=== PATIENT | male | born 1950 ===

== ENCOUNTER 2017-01-09 15:13 | Inpatient (IN) | payer MEDICARE, OTHER ==
[2017-01-09 15:16] VITALS: BMI 27.7
--- NOTE | 2017-01-09 15:51 | ED PDOC ---
Arrival/HPI - General Chief Complaint: Psychiatric Evaluation Time Seen by Provider: 01/09/17 15:43 Historian: Patient - History of Present Illness Narrative History of Present Illness (Text): 01/09/17 15:43 A 66 year old male, whose past medical history includes depression, presents to the emergency department complaining of worsening symptoms of depression over the past few weeks. Patient denies any other physical complaints. Patient denies any fever, chills, nausea, vomiting, abdominal pain, chest pain, shortness of breath, suicidal ideation, homicidal ideation or any other complaints. PMD: Dr. Diana Time/Duration: Other (few days) Symptom Course: Worsening Quality: Other Context: Home Past Medical History - Provider Review Nursing Documentation Reviewed: Yes - Infectious Disease Hx of Infectious Diseases: None - Cardiac Hx Hypertension: Yes - Pulmonary Hx Respiratory Disorders: No - HEENT Hx HEENT Disorder: Yes Hx Blind: No Hx Cataracts: Yes (cataraxt sx) Hx Deafness: No Hx Difficulty Chewing: No Hx Epistaxis: No Hx Glaucoma: No Hx Macular Degeneration: No - Renal Hx Renal Disorder: No - Endocrine/Metabolic Hx Diabetes Mellitus Type 2: Yes Hx Hypothyroidism: No - Hematological/Oncological Hx Anemia: Yes Hx Blood Transfusions: Yes Hx Blood Transfusion Reaction: No - Integumentary Hx Dermatological Disorder: Yes Hx Basal Cell Carcinoma: No Hx High: No Hx Cellulitis: Yes Hx Eczema: No Hx Melanoma: No Hx Psoriasis: No Hx Squamous Cell Carcinoma: No Other/Comment: Hx Ulcer to right calf (healed) - Musculoskeletal/Rheumatological Hx Arthritis: No Hx Rheumatoid Arthritis: No Other/Comment: Varicose veins - Gastrointestinal Hx Gastrointestinal Disorders: Yes Hx Crohn's Disease: No Hx Diverticulitis: Yes Hx Gall Bladder Disease: No Hx Gastritis: No Hx Pancreatitis: No - Genitourinary/Gynecological Hx Sexually Transmitted Diseases: No - Psychiatric Hx Anxiety: No Hx Bipolar Disorder: No Hx Depression: Yes Hx Post Traumatic Stress Disorder: No Hx Schizophrenia: No Hx Substance Use: No - Surgical History Hx Appendectomy: No Hx Carotid Endarterectomy: No Hx Cholecystectomy: No Hx Coronary Artery Bypass Graft: Yes (1997) Hx Coronary Stent: No Hx Tonsillectomy: No Hx Vascular Surgery: Yes Other/Comment: MVR. Varicose veins - Anesthesia Hx Anesthesia: Yes Hx Anesthesia Reactions: No Hx Malignant Hyperthermia: No Family/Social History - Physician Review Nursing Documentation Reviewed: Yes Family/Social History: No Known Family HX Smoking Status: Light Smoker < 10 Cigarettes Daily Hx Alcohol Use: Yes Frequency of alcohol use: Socially Hx Substance Use: No Allergies/Home Meds Allergies/Adverse Reactions: Allergies clams Allergy (Mild, Uncoded 12/17/16 15:02) Home Medications: Home Meds Medication Instructions Recorded Confirmed Potassium Chloride [Klor-Con M10] 10 meq PO DAILY 05/16/15 01/09/17 Clonazepam 2 mg PO HS 03/15/16 01/09/17 Losartan Potassium [Cozaar] 100 mg PO DAILY 03/15/16 01/09/17 metOLazone [Zaroxolyn] 2.5 mg PO DAILY 03/15/16 01/09/17 Insulin Aspart [Novolog Flexpen] 1 unit SC BID 05/14/16 01/09/17 Insulin Degludec [Tresiba 20 unit SQ HS 05/14/16 01/09/17 Flextouch U-100] Allopurinol [Zyloprim] 1 tab PO DAILY 11/16/16 01/09/17 Simvastatin 1 tab PO DAILY 11/16/16 01/09/17 Physical Exam - Physical Exam Narrative Physical Exam (Text): - Review of Systems Constitutional: Normal. absent: Fatigue, Weight Change, Fevers Eyes: Normal ENT: Normal Respiratory: Normal absent: SOB, Cough, Sputum Cardiovascular: Normal absent: Chest pain, Palpitations, Syncope Gastrointestinal: Normal absent: Abdominal pain, Diarrhea, Nausea, Vomiting Genitourinary: Normal. absent: Dysuria, Frequency, Hematuria Musculoskeletal: Normal. absent: Arthralgias, Back Pain, Neck Pain Skin: Normal Neurological: Normal absent: Focal Weakness Endocrine: Normal Hemo/Lymphatic: Normal Psychiatric: (+) Depression absent: suicidal/homicidal ideation - Physical exam Patient appears age appropriate, speaking full sentences without difficulty - Systems Exam Head: Present: Atraumatic, Normocephalic Pupils: Present: PERRL Extraocular Muscles: Present: EOMI Conjunctiva: Present: Normal Mouth: Present: Moist Mucous Membranes Neck: Present: Normal Range of Motion. No: MIDLINE TENDERNESS, Paraspinal Tenderness Respiratory/Chest: Present: Clear to Auscultation, Good Air Exchange. No: Respiratory Distress, Accessory Muscle Use, Tachypnic Cardiovascular: Present: Regular Rate and Rhythm, Normal S1, S2, Peripheral Pulses Present. No: Murmurs Abdomen: Present: Normal Bowel Sounds, No: Tenderness, Peritoneal Signs, Rebound, Guarding, Distention Back: Present: Normal Inspection. No: Midline Tenderness, Paraspinal Tenderness Upper Extremity: Present: Normal Inspection. No: Cyanosis, Edema Lower Extremity: Present: Normal Inspection. No: Edema Neurological: Present: GCS=15, Speech Normal, cranial nerves II through XII fully intact with no cerebellar abnormality, neuro-sensory fully intact. No focal neurological deficits. Skin: Present: Warm, Dry, Normal Color. No: Rashes Lymphatic: Present: OX3, NI, NC Psychiatric: Present: Alert, Oriented x 3, Normal Insight, Normal Concentration Vital Signs Reviewed: Yes Vital Signs Temp Pulse Resp BP Pulse Ox 01/09/17 15:20 97.9 F 77 18 120/72 98 Temperature: Afebrile Blood Pressure: Normal Pulse: Regular Respiratory Rate: Normal Appearance: Positive for: Well-Appearing, Non-Toxic, Comfortable Pain Distress: None Mental Status: Positive for: Alert and Oriented X 3 Medical Decision Making ED Course and Treatment: 01/09/17 15:43 Impression: A 66 year old male with worsening symptoms of depression. Patient denies any suicidal or homicidal ideation. Physical exam unremarkable. Plan: -- Labs -- Urinalysis -- Reassess and disposition Progress Notes: 01/09/17 17:43 Patient was evaluated by ERIN Celis, who states patient will be admitted to Dr. Turner's service. Patient is aware of and agrees with plan. - Lab Interpretations Lab Results: 01/09/17 16:15 01/09/17 16:15 Lab Results 01/09/17 16:15: Alcohol, Quantitative < 10 01/09/17 16:15: Salicylates < 1 L, Acetaminophen < 10.0 L 01/09/17 16:15: Sodium 138, Potassium 3.8, Chloride 99, Carbon Dioxide 32, Anion Gap 11, BUN 19, Creatinine 1.0, Est GFR ( Amer) > 60, Est GFR (Non- Af Amer) > 60, Random Glucose 156 H, Calcium 8.7, Total Bilirubin 0.3, AST 43, ALT 57 H, Alkaline Phosphatase 87, Total Protein 6.1, Albumin 3.5, Globulin 2.6 , Albumin/Globulin Ratio 1.3 01/09/17 16:15: WBC 5.4, RBC 3.92, Hgb 11.8 L, Hct 36.8 L, MCV 93.9, MCH 30.1, MCHC 32.1, RDW 13.2, Plt Count 163, MPV 11.4 H, Gran % 68.1 H, Lymph % (Auto) 18.9 L, [place] % (Auto) 11.9 H, Eos % (Auto) 0.7 L, Baso % (Auto) 0.4, Gran # 3.68 , Lymph # 1.0 L, Roosevelt # 0.6, Eos # 0.0, Baso # 0.02, Corrected WBC (Man) Cancelled, Neutrophils % (Manual) Cancelled, Band Neutrophils % Cancelled, Lymphocytes % (Manual) Cancelled, Atypical Lymphs % Cancelled, Monocytes % ( Manual) Cancelled, Eosinophils % (Manual) Cancelled, Basophils % (Manual) Cancelled, Metamyelocytes % Cancelled, Myelocytes % Cancelled, Promyelocytes % Cancelled, Nucleated RBC % Cancelled, Hypersegmented Polys Cancelled, Immature Lymphocytes Cancelled, Blast Cells Cancelled, Smudge Cells Cancelled, Toxic Granulation Cancelled, Dohle Bodies Cancelled, Nena Rods Cancelled, Platelet Evaluation Cancelled, Plt Clumps, EDTA Cancelled, Large Platelets Cancelled, Giant Platelets Cancelled, Polychromasia Cancelled, Hypochromasia Cancelled, Hyperchromasia Cancelled, Poikilocytosis (manual Cancelled, Basophilic Stippling Cancelled, Anisocytosis (manual) Cancelled, Microcytosis (manual) Cancelled, Macrocytosis (manual) Cancelled, Spherocytes Cancelled, Sickle Cells Cancelled, Target Cells Cancelled, Tear Drop Cells Cancelled, Ovalocytes Cancelled, Stomatocytes Cancelled, Helmet Cells Cancelled, Cameron Rings Cancelled , Deanna Cells Cancelled, Acanthocytes (Spur) Cancelled, Rouleaux Cancelled, Schistocytes Cancelled 01/09/17 16:12: Urine Opiates Screen Negative, Urine Methadone Screen Negative, Ur Barbiturates Screen Negative, Ur Phencyclidine Scrn Negative, Ur Amphetamines Screen Negative, U Benzodiazepines Scrn Negative, U Oth Cocaine Metabols Negative, U Cannabinoids Screen Negative 01/09/17 16:12: Urine Color Yellow, Urine Appearance Clear, Urine pH 6.5, Ur Specific [place] 1.015, Urine Protein Trace H, Urine Glucose (UA) 100 H, Urine Ketones Negative, Urine Blood Trace-lysed H, Urine Nitrate Negative, Urine Bilirubin Negative, Urine Urobilinogen 0.2, Ur Leukocyte Esterase Negative, Urine RBC 0 - 2, Urine WBC Negative, Ur Epithelial Cells 1 - 3, Urine Bacteria Many - Scribe Statement The provider has reviewed the documentation as recorded by the Vladislavibe Donna Wild Provider Scribe Attestation: All medical record entries made by the Scribe were at my direction and personally dictated by me. I have reviewed the chart and agree that the record accurately reflects my personal performance of the history, physical exam, medical decision making, and the department course for this patient. I have also personally directed, reviewed, and agree with the discharge instructions and disposition. Disposition/Present on Arrival - Present on Arrival Any Indicators Present on Arrival: No History of DVT/PE: No History of Uncontrolled Diabetes: No Urinary Catheter: No History of Decub. Ulcer: No History Surgical Site Infection Following: None - Disposition Have Diagnosis and Disposition been Completed?: Yes Diagnosis: Depression Disposition: HOSPITALIZED Disposition Time: 17:56 Patient Plan: Admission Condition: FAIR Referrals: Pb Diana [Primary Care Provider] - Follow up with primary Forms: [employer] ([place])
[2017-01-09 16:24] LABS: BASO # 0.02 K/mm3 (0.0-2.0); BASO % 0.4 % (0.0-3.0); EOS % 0.7 % (1.5-5.0); GRAN # 3.68 (1.4-6.5); GRAN % 68.1 % (50.0-68.0); HEMATOCRIT 36.8 % (42.0-52.0); LYMPH % 18.9 % (22.0-35.0); MEAN CELL VOLUME 93.9 fl (80.0-105.0); MEAN CORPUSCULAR HEMOGLOBIN 30.1 pg (25.0-35.0); MEAN CORPUSCULAR HGB CONC 32.1 g/dl (31.0-37.0); MEAN PLATELET VOLUME 11.4 fl (7.0-11.0); MONO # 0.6 (0.1-0.6); MONO % 11.9 % (1.0-6.0); RED CELL DISTRIBUTION WIDTH 13.2 % (11.5-14.5); WHITE BLOOD COUNT 5.4 10^3/ul (4.5-11.0)
[2017-01-09 16:33] LABS: ALB/GLOB RATIO 1.3 (1.1-1.8); ALKALINE PHOSPHATASE 87 U/L (38-133); ALT/SGPT 57 U/L (7-56); AST/SGOT 43 U/L (15-59); BILIRUBIN,TOTAL 0.3 mg/dL (0.2-1.3); BLOOD UREA NITROGEN 19 mg/dL (7-21); CALCIUM 8.7 mg/dL (8.4-10.5); CARBON DIOXIDE 32 mmol/L (21-33); CHLORIDE 99 mmol/L (98-107); GFR AFRICAN-AMERICAN > 60; GLUCOSE,RANDOM 156 mg/dL (70-110); POTASSIUM 3.8 mmol/L (3.6-5.0); SODIUM 138 mmol/L (132-148); TOTAL PROTEIN 6.1 g/dL (5.8-8.3)
[2017-01-09 17:18] LABS: PH,URINE 6.5 (4.7-8.0); URINE BILIRUBIN NEGATIVE (NEGATIVE); URINE BLOOD TRACE-LYSED (NEGATIVE); URINE GLUCOSE (UA) 100 mg/dL (NEGATIVE); URINE KETONE NEGATIVE (NEGATIVE); URINE LEUKOCYTE ESTERASE NEGATIVE Leu/uL (NEGATIVE); URINE PROTEIN TRACE mg/dL (<30 mg/dL); URINE UROBILINOGEN 0.2 E.U./dL (<1 E.U./dL)
[2017-01-09 17:25] LABS: URINE APPEARANCE CLEAR (CLEAR); URINE COLOR YELLOW (YELLOW)
[2017-01-09 17:47] LABS: URINE BACTERIA MANY (NEG); URINE RBC 0 - 2 /hpf (0-2); URINE WBC NEGATIVE /hpf (0-6)
[2017-01-09] MEDS ORDERED: Magnesium Hydroxide Susp 30 ml UD PO PRN (21:07)
[2017-01-09] MEDS ORDERED: Alum-Mag Hydrox-Simethicone Susp (30 mL) PO PRN (21:07)
[2017-01-09] MEDS: Insulin Reg-MEDIUM-Coverage SC SCH (22:09)
[2017-01-09] MEDS: Insulin Detemir 100 units/ml Vial (Levemir) SC SCH (22:17)
--- NOTE | 2017-01-10 00:38 | PCM.BM ---
Treatment Plan Problems - Problems identified on initial assessmt depression Date Initiated: 01/09/17 Time Initiated: 20:30 Assessment reference: NA Status: Active Priority: 1 Medication Non-Compliance Date Initiated: 01/09/17 Time Initiated: 20:30 Assessment reference: NA Status: Active Priority: 2 Treatment assets and liabiliti Patient Assests: self-reliant, negotiates basic needs, cognitively intact Patient Liabilities: financial problems, poor support system, relationship conflicts, medical problems - Milieu Protocol Maintain good personal hygiene: daily Encourage regular showers, daily Remind patient to perform daily oral care Conduct patient checks and document Observation sheet: Q15 minutes Maintain personal safety: every shift Educate patient to report safety concerns to staff, every shift Monitor environment for contraband/sharps Medication safety: Monitor for expected outcome, potential side effects: every shift, Assess barriers to learning: every shift, Assess readiness for medication education: every shift Discharge/Continuing Care - Education Needs Education Needs: Patient Medication, Patient Diagnosis/Disease Process, Patient Coping Skills, Patient Placement options, Patient Community resources - Discharge Discharge Criteria: Tolerates medication w/o severe side effects
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
[2017-01-10] MEDS: Pantoprazole 40 mg EC Tab PO SCH (06:57)
--- NOTE | 2017-01-10 07:31 | CP.PCM.CON ---
<Ava Phan - Last Filed: 01/10/17 14:19> History of Present Illness - History of Present Illness History of Present Illness: Medicine consult note for Dr Turner Reason for consult: medical clearance. Patient is a 66 y/o with PMH of mitral valve replacement, htn, depression, anxiety, OCD, cad, IDDM2, hld, afib ( on Coumadin) whom was admitted on psych hyman for depression, and Dr Oh is being consulted for medical clearance. Patient currently has no complaints. States he is feeling much better compared to when he came in. Patient denies chest pain, sob, n/v/d, denies stomach pain, decreased appetite. PMH: Afib, CAD, HTN, IDDM2, depression, anxiety, hld, PSH: MV replacement in 1997, CAD s.p CABG , Cataract surgery. FMH: Father and mother has h/o DM, htn. Social: smokes 5-7 cigarettes per day, denies alcohol and illicit drug use. Review of Systems - Constitutional Constitutional: absent: Chills, Fatigue, Fever, Frequent Falls, Headache - EENT Eyes: absent: Blurred Vision Nose/Mouth/Throat: absent: Neck Pain - Cardiovascular Cardiovascular: Irregular Heart Rhythm. absent: Chest Pain, Chest Pain at Rest , Chest Pain with Activity, Dyspnea on Exertion, Edema, Leg Edema, Lightheadedness, Palpitations, Syncope - Respiratory Respiratory: absent: Cough, Dyspnea, Wheezing, Stridor, Chest Congestion - Gastrointestinal Gastrointestinal: absent: Abdominal Pain, Bloating, Constipation, Nausea - Genitourinary Genitourinary: absent: Difficulty Urinating, Dysuria - Musculoskeletal Musculoskeletal: absent: Atrophy, Back Pain - Integumentary Integumentary: absent: Rash - Neurological Neurological: absent: Dizziness, Headaches, Syncope, Tremor, Vertigo, Weakness - Psychiatric Psychiatric: Anxiety, Depression - Endocrine Endocrine: absent: Fatigue, Palpitations Past Patient History - Infectious Disease Hx of Infectious Diseases: None - Past Medical History & Family History Past Medical History?: Yes - Past Social History Smoking Status: Light Smoker < 10 Cigarettes Daily Alcohol: None Drugs: Denies Home Situation {Lives}: With Family - CARDIAC Hx Hypertension: Yes - PULMONARY Hx Respiratory Disorders: No - HEENT Hx HEENT Problems: Yes Hx Cataracts: Yes (cataraxt sx) Hx Deafness: No Hx Difficulty Chewing: No Hx Epistaxis: No Hx Glaucoma: No Hx Macular Degeneration: No - RENAL Hx Chronic Kidney Disease: No - ENDOCRINE/METABOLIC Hx Diabetes Mellitus Type 2: Yes Hx Hypothyroidism: No - HEMATOLOGICAL/ONCOLOGICAL Hx Anemia: Yes Hx Blood Transfusions: Yes Hx Blood Transfusion Reaction: No - INTEGUMENTARY Hx Dermatological Problems: Yes Hx Basil Cell: No Hx High: No Hx Cellulitis: Yes Hx Eczema: No Hx Melanoma: No Hx Psoriasis: No Hx Squamous Cell: No Other/Comment: Hx Ulcer to right calf (healed) - MUSCULOSKELETAL/RHEUMATOLOGICAL Hx Arthritis: No Hx Rheumatoid Arthritis: No Other/Comment: Varicose veins - GASTROINTESTINAL Hx Gastrointestinal Disorders: Yes Hx Crohn's Disease: No Hx Diverticulitis: Yes Hx Gall Bladder Disease: No Hx Gastritis: No Hx Pancreatitis: No - GENITOURINARY/GYNECOLOGICAL Hx Sexually Transmitted Disorders: No - PSYCHIATRIC Hx Depression: Yes - SURGICAL HISTORY Hx Appendectomy: No Hx Carotid Endarterectomy: No Hx Cholecystectomy: No Hx Coronary Artery Bypass Graft: Yes (1997) Hx Coronary Stent: No Hx Tonsillectomy: No Hx Vascular Surgery: Yes Other/Comment: MVR. Varicose veins - ANESTHESIA Hx Anesthesia: Yes Hx Anesthesia Reactions: No Hx Malignant Hyperthermia: No Meds Allergies/Adverse Reactions: Allergies Allergy/AdvReac Type Severity Reaction Status Date / Time clams Allergy Mild SHORTNESS Uncoded 01/09/17 20:50 OF BREATH - Medications Medications: Current Medications Acetaminophen (Tylenol 325mg Tab) 650 mg PO Q4 PRN PRN Reason: Pain, moderate (4-7) Al Hydrox/Mg Hydrox/Simethicone (Maalox Plus 30 Ml) 30 ml PO DAILY PRN PRN Reason: Upset Stomach Amlodipine Besylate (Norvasc) 5 mg PO DAILY [facility] Clonazepam (Klonopin) 2 mg PO HS [facility] PRN Reason: Protocol Last Admin: 01/09/17 22:16 Dose: 2 mg Insulin Detemir (Levemir) 15 unit SC HS [facility] Last Admin: 01/09/17 22:17 Dose: 15 unit Insulin Human Regular (Humulin R Med) 0 units SC ACHS [facility] PRN Reason: Protocol Last Admin: 01/09/17 22:09 Dose: Not Given Losartan Potassium (Cozaar) 100 mg PO DAILY [facility] Magnesium Hydroxide (Milk Of Magnesia) 30 ml PO DAILY PRN PRN Reason: Constipation Metolazone (Zaroxolyn) 2.5 mg PO DAILY [facility] Pantoprazole Sodium (Protonix Ec Tab) 40 mg PO 0600 [facility] Last Admin: 01/10/17 06:57 Dose: 40 mg Potassium Chloride (Klor-Con 10) 10 meq PO 0800 [facility] Sertraline HCl (Zoloft) 50 mg PO DAILY [facility] Trazodone HCl (Desyrel) 50 mg PO HS [facility] Last Admin: 01/09/17 22:17 Dose: 50 mg Warfarin Sodium (Coumadin) 5 mg PO 1800 [facility] PRN Reason: Protocol Physical Exam - Constitutional Appears: No Acute Distress - Head Exam Head Exam: ATRAUMATIC, NORMAL INSPECTION, NORMOCEPHALIC - Eye Exam Eye Exam: EOMI, Normal appearance, PERRL. absent: Scleral icterus Pupil Exam: NORMAL ACCOMODATION - ENT Exam ENT Exam: Mucous Membranes Moist - Neck Exam Neck exam: Positive for: Normal Inspection - Respiratory Exam Respiratory Exam: Clear to Auscultation Bilateral, NORMAL BREATHING PATTERN. absent: Rales, Rhonchi, Wheezes, Respiratory Distress, Stridor - Cardiovascular Exam Cardiovascular Exam: Irregular Rhythm, RRR, +S1, +S2, Systolic Murmur. absent: Gallop, JVD, Rubs - GI/Abdominal Exam GI & Abdominal Exam: Normal Bowel Sounds, Soft. absent: Distended, Firm, Guarding, Rigid, Tenderness - Extremities Exam Extremities exam: Positive for: normal inspection. Negative for: pedal edema - Back Exam Back exam: NORMAL INSPECTION - Neurological Exam Neurological exam: Alert, Oriented x3 - Psychiatric Exam Psychiatric exam: Normal Affect, Normal Mood - Skin Skin Exam: Dry, Warm Results - Vital Signs Recent Vital Signs: Last Vital Signs Temp 96.7 F L 01/10/17 07:03 Pulse 63 01/10/17 07:03 Resp 16 01/10/17 07:03 BP 123/65 01/10/17 07:03 Pulse Ox 98 01/10/17 07:03 - Labs Result Diagrams: 01/09/17 16:15 01/09/17 16:15 Labs: Laboratory Results - last 24 hr 01/09/17 01/10/17 20:44 06:50 POC Glucose (mg/dL) 262 H 99 Assessment & Plan - Assessment and Plan (Free Text) Assessment: 1) HTN 2) Rate controlled afib 3) IDDM2 4) HLD 5) CAD, with CABG 6) Anxiety and depression. 7) Mitral valve replacement Plan: Will continue patient on Norvasc for htn. Patient is on cozaar and metolazone. Will add lopressor and asa for CAD. Tresiba and novolog are non formulary, will start levemir and ISS for DM. Carb controlled diet. Patient is on Coumadin for afib/valve replacement. On protonix for gi prophylaxis. Patient is also on trozodone, zoloft, and klonopin as per psych. Patient seen, examined, and case discussed with Dr Oh. - Date & Time Date: 01/10/17 Time: 07:15 <Ronald Oh S - Last Filed: 01/10/17 21:34> Meds - Medications Medications: Current Medications Acetaminophen (Tylenol 325mg Tab) 650 mg PO Q4 PRN PRN Reason: Pain, moderate (4-7) Al Hydrox/Mg Hydrox/Simethicone (Maalox Plus 30 Ml) 30 ml PO DAILY PRN PRN Reason: Upset Stomach Amlodipine Besylate (Norvasc) 5 mg PO DAILY [facility] Last Admin: 01/10/17 09:18 Dose: 5 mg Aspirin (Ecotrin) 81 mg PO DAILY [facility] Last Admin: 01/10/17 11:59 Dose: 81 mg Clonazepam (Klonopin) 2 mg PO HS [facility] PRN Reason: Protocol Last Admin: 01/09/17 22:16 Dose: 2 mg Insulin Detemir (Levemir) 15 unit SC HS [facility] Last Admin: 01/09/17 22:17 Dose: 15 unit Insulin Human Regular (Humulin R Med) 0 units SC ACHS [facility] PRN Reason: Protocol Last Admin: 01/10/17 17:21 Dose: 5 units Losartan Potassium (Cozaar) 100 mg PO DAILY [facility] Last Admin: 01/10/17 09:19 Dose: 100 mg Magnesium Hydroxide (Milk Of Magnesia) 30 ml PO DAILY PRN PRN Reason: Constipation Metolazone (Zaroxolyn) 2.5 mg PO DAILY [facility] Last Admin: 01/10/17 09:19 Dose: 2.5 mg Metoprolol Tartrate (Lopressor) 25 mg PO BRKDIN [facility] Last Admin: 01/10/17 17:28 Dose: 25 mg Pantoprazole Sodium (Protonix Ec Tab) 40 mg PO 0600 [facility] Last Admin: 01/10/17 06:57 Dose: 40 mg Potassium Chloride (Klor-Con 10) 10 meq PO 0800 [facility] Last Admin: 01/10/17 09:18 Dose: 10 meq Sertraline HCl (Zoloft) 50 mg PO DAILY [facility] Last Admin: 01/10/17 09:18 Dose: 50 mg Trazodone HCl (Desyrel) 50 mg PO HS [facility] Last Admin: 01/09/17 22:17 Dose: 50 mg Warfarin Sodium (Coumadin) 5 mg PO 1800 [facility] PRN Reason: Protocol Last Admin: 01/10/17 17:27 Dose: 5 mg Results - Vital Signs Recent Vital Signs: Last Vital Signs Temp 96.7 F L 01/10/17 07:03 Pulse 57 L 01/10/17 17:28 Resp 16 01/10/17 07:03 BP 157/76 H 01/10/17 17:28 Pulse Ox 98 01/10/17 07:03 - Labs Result Diagrams: 01/09/17 16:15 01/09/17 16:15 Labs: Laboratory Results - last 24 hr 01/10/17 01/10/17 01/10/17 06:50 08:00 08:00 PT INR POC Glucose (mg/dL) 99 Fasting Glucose 75 Triglycerides 58 Cholesterol 109 L LDL Cholesterol Direct 49 HDL Cholesterol 39 TSH 3rd Generation 3.14 RPR 01/10/17 01/10/17 01/10/17 08:00 11:00 11:31 PT 22.0 H INR 2.04 H POC Glucose (mg/dL) 207 H Fasting Glucose Triglycerides Cholesterol LDL Cholesterol Direct HDL Cholesterol TSH 3rd Generation RPR Nonreactive 01/10/17 16:45 PT INR POC Glucose (mg/dL) 276 H Fasting Glucose Triglycerides Cholesterol LDL Cholesterol Direct HDL Cholesterol TSH 3rd Generation RPR Assessment & Plan - Assessment and Plan (Free Text) Plan: Pt seen and examined. Resident note reviewed and I agree with the note. Pt had CABG. A fib is controlled and on Coumadin. DM-2, will need fs and regular insulin coverage. ASA and Lopressor added for CAD.
[2017-01-10 08:59] LABS: CHOLESTEROL 109 mg/dL (130-200); GLUCOSE,FASTING 75 mg/dL (65-110)
[2017-01-10] MEDS: Potassium Chloride 10 mEq ER Tab PO SCH (09:18)
[2017-01-10] MEDS: Insulin Reg-MEDIUM-Coverage SC SCH ×4 (09:19→22:00)
[2017-01-10] MEDS: metOLazone 2.5 MG TAB PO SCH (09:19)
[2017-01-10 11:43] LABS: INR 2.04 (0.93-1.08)
--- NOTE | 2017-01-10 19:16 | CARD ---
APPROVED REPORT EKG Measurement Heart [id number] <Conclusion> Atrial fibrillation Abnormal ECG
[2017-01-10] MEDS: Insulin Detemir 100 units/ml Vial (Levemir) SC SCH (22:07)
[2017-01-11] MEDS: Pantoprazole 40 mg EC Tab PO SCH (07:12)
[2017-01-11 07:54] LABS: BASO # 0.01 K/mm3 (0.0-2.0); BASO % 0.2 % (0.0-3.0); EOS # 0.1 (0.0-0.7); EOS % 1.9 % (1.5-5.0); GRAN # 2.9 (1.4-6.5); GRAN % 68.3 % (50.0-68.0); HEMATOCRIT 37.2 % (42.0-52.0); LYMPH # 0.8 (1.2-3.4); LYMPH % 18.8 % (22.0-35.0); MEAN CELL VOLUME 94.4 fl (80.0-105.0); MEAN CORPUSCULAR HEMOGLOBIN 29.7 pg (25.0-35.0); MEAN CORPUSCULAR HGB CONC 31.5 g/dl (31.0-37.0); MEAN PLATELET VOLUME 11.6 fl (7.0-11.0); MONO # 0.5 (0.1-0.6); MONO % 10.8 % (1.0-6.0); RED CELL DISTRIBUTION WIDTH 13.2 % (11.5-14.5); WHITE BLOOD COUNT 4.3 10^3/ul (4.5-11.0)
[2017-01-11 08:02] LABS: ALB/GLOB RATIO 1.4 (1.1-1.8); ALKALINE PHOSPHATASE 91 U/L (38-133); ALT/SGPT 68 U/L (7-56); AST/SGOT 47 U/L (15-59); BILIRUBIN,TOTAL 0.3 mg/dL (0.2-1.3); BLOOD UREA NITROGEN 20 mg/dL (7-21); CALCIUM 8.7 mg/dL (8.4-10.5); CARBON DIOXIDE 34 mmol/L (21-33); CHLORIDE 99 mmol/L (98-107); GFR AFRICAN-AMERICAN > 60; GLUCOSE,RANDOM 192 mg/dL (70-110); SODIUM 140 mmol/L (132-148); TOTAL PROTEIN 6.2 g/dL (5.8-8.3)
[2017-01-11 08:10] LABS: INR 2.02 (0.93-1.08)
[2017-01-11] MEDS: Insulin Reg-MEDIUM-Coverage SC SCH ×4 (08:20→21:56)
[2017-01-11] MEDS: Potassium Chloride 10 mEq ER Tab PO SCH (08:26)
--- NOTE | 2017-01-11 08:50 | PN ---
SUBJECTIVE: The patient is a 66-year-old depressed, obsessive compulsive male. He is alert, oriented, pleasant, depressed in affect. He is compliant with his medications which presently consists of psychotropically Klonopin 2 mg at bedtime and Zoloft 50 mg started this a.m. Blood sugar per stay was 207. He was seen by consulting pipe cleaner Dr. Shelton, who reviewed his mitral valve replacement, coronary artery disease, diabetes mellitus, history of atrial fibrillation. He has also had cataract surgery. PHYSICAL EXAMINATION VITAL SIGNS: Blood pressure 157/76, pulse 57, temperature 96.7, and respiratory rate 16. Tripp Turner MD/ PhD
--- NOTE | 2017-01-11 09:22 | CP.PCM.PN ---
<Ava Phan - Last Filed: 01/11/17 13:21> Subjective - Date & Time of Evaluation Date of Evaluation: 01/11/17 Time of Evaluation: 13:00 - Subjective Subjective: Medicine progress note for Dr Oh. Patient with no complaints. Denies chest pain, sob, n/v/d, denies headache or dizziness. Objective - Vital Signs/Intake and Output Vital Signs (last 24 hours): Temp Pulse Resp BP Pulse Ox 97.7 F 60 18 131/56 L 98 01/11/17 07:12 01/11/17 08:55 01/11/17 07:12 01/11/17 08:55 01/10/17 07:03 - Medications Medications: Current Medications Acetaminophen (Tylenol 325mg Tab) 650 mg PO Q4 PRN PRN Reason: Pain, moderate (4-7) Al Hydrox/Mg Hydrox/Simethicone (Maalox Plus 30 Ml) 30 ml PO DAILY PRN PRN Reason: Upset Stomach Amlodipine Besylate (Norvasc) 5 mg PO DAILY [facility] Last Admin: 01/11/17 08:25 Dose: 5 mg Aspirin (Ecotrin) 81 mg PO DAILY [facility] Last Admin: 01/11/17 08:26 Dose: 81 mg Clonazepam (Klonopin) 2 mg PO HS [facility] PRN Reason: Protocol Last Admin: 01/10/17 22:06 Dose: 2 mg Insulin Detemir (Levemir) 15 unit SC HS [facility] Last Admin: 01/10/17 22:07 Dose: 15 unit Insulin Human Regular (Humulin R Med) 0 units SC [facility] PRN Reason: Protocol Last Admin: 01/11/17 08:20 Dose: 3 units Losartan Potassium (Cozaar) 100 mg PO DAILY [facility] Last Admin: 01/11/17 08:26 Dose: 100 mg Magnesium Hydroxide (Milk Of Magnesia) 30 ml PO DAILY [facility] PRN Reason: Constipation Metolazone (Zaroxolyn) 2.5 mg PO DAILY [facility] Last Admin: 01/10/17 09:19 Dose: 2.5 mg Metoprolol Tartrate (Lopressor) 25 mg PO BRKDIN [facility] Last Admin: 01/11/17 08:55 Dose: 25 mg Pantoprazole Sodium (Protonix Ec Tab) 40 mg PO 0600 [facility] Last Admin: 01/11/17 07:12 Dose: 40 mg Potassium Chloride (Klor-Con 10) 10 meq PO 0800 [facility] Last Admin: 01/11/17 08:26 Dose: 10 meq Sertraline HCl (Zoloft) 50 mg PO DAILY [facility] Last Admin: 01/11/17 08:26 Dose: 50 mg Trazodone HCl (Desyrel) 50 mg PO HS [facility] Last Admin: 01/10/17 22:06 Dose: 50 mg Warfarin Sodium (Coumadin) 5 mg PO 1800 [facility] PRN Reason: Protocol Last Admin: 01/10/17 17:27 Dose: 5 mg - Labs Labs: 01/11/17 07:15 01/11/17 07:15 PT 21.8 Seconds (9.9-11.8) H 01/11/17 07:15 INR 2.02 (0.93-1.08) H 01/11/17 07:15 - Constitutional Appears: No Acute Distress, Older Than Stated Age - Head Exam Head Exam: ATRAUMATIC, NORMAL INSPECTION, NORMOCEPHALIC - Eye Exam Eye Exam: EOMI, Normal appearance, PERRL. absent: Scleral icterus - ENT Exam ENT Exam: Mucous Membranes Moist - Neck Exam Neck Exam: Normal Inspection - Respiratory Exam Respiratory Exam: Clear to Ausculation Bilateral, NORMAL BREATHING PATTERN. absent: Rales, Rhonchi, Wheezes, Respiratory Distress, Stridor - Cardiovascular Exam Cardiovascular Exam: Irregular Rhythm, +S1, +S2, Murmur. absent: Gallop - GI/Abdominal Exam GI & Abdominal Exam: Soft, Normal Bowel Sounds. absent: Distended, Firm, Guarding, Rigid, Tenderness - Extremities Exam Extremities Exam: Normal Inspection. absent: Pedal Edema - Back Exam Back Exam: NORMAL INSPECTION - Neurological Exam Neurological Exam: Alert, Awake, Oriented x3 - Psychiatric Exam Psychiatric exam: Normal Affect, Normal Mood - Skin Skin Exam: Dry, Intact, Normal Color, Warm Assessment and Plan - Assessment and Plan (Free Text) Assessment: 1) HTN 2) Rate controlled afib 3) IDDM2 4) HLD 5) CAD, with CABG 6) Anxiety and depression. 7) Mitral valve replacement Will continue patient on Norvasc for htn. Patient is on cozaar and metolazone. Will add lopressor and asa for CAD. Tresiba and novolog are non formulary, will start levemir and ISS for DM. Carb controlled diet. Patient is on Coumadin for afib/valve replacement. On protonix for gi prophylaxis. Patient is also on trozodone, zoloft, and klonopin as per psych. Patient seen, examined, and case discussed with Dr Apodaca Plan: Patient is stable. INR of 2.02, will continue 5 mg Coumadin. fasting glucose of 192, will increase levemir to 20 mg HS. Will continue ISS, carb controlled and 2 gm sodium diet. BP is stable, will continue Norvasc and cozaar for htn. Also on metolazone. Continue Lopressor and asa for CAD. On protonix for gi prophylaxis. Patient is also on trozodone, zoloft, and klonopin as per psych. Patient seen, examined, and case discussed with Dr Oh. <Ronald Oh - Last Filed: 01/11/17 21:45> Objective - Vital Signs/Intake and Output Vital Signs (last 24 hours): Temp Pulse Resp BP Pulse Ox 97.7 F 60 18 162/68 H 98 01/11/17 07:12 01/11/17 17:37 01/11/17 07:12 01/11/17 17:37 01/10/17 07:03 - Medications Medications: Current Medications Acetaminophen (Tylenol 325mg Tab) 650 mg PO Q4 PRN PRN Reason: Pain, moderate (4-7) Al Hydrox/Mg Hydrox/Simethicone (Maalox Plus 30 Ml) 30 ml PO DAILY PRN PRN Reason: Upset Stomach Amlodipine Besylate (Norvasc) 5 mg PO DAILY [facility] Last Admin: 01/11/17 08:25 Dose: 5 mg Aspirin (Ecotrin) 81 mg PO DAILY [facility] Last Admin: 01/11/17 08:26 Dose: 81 mg Clonazepam (Klonopin) 2 mg PO HS [facility] PRN Reason: Protocol Last Admin: 01/10/17 22:06 Dose: 2 mg Insulin Detemir (Levemir) 20 unit SC HS [facility] Insulin Human Regular (Humulin R Med) 0 units SC ACHS [facility] PRN Reason: Protocol Last Admin: 01/11/17 16:11 Dose: 5 units Losartan Potassium (Cozaar) 100 mg PO DAILY [facility] Last Admin: 01/11/17 08:26 Dose: 100 mg Magnesium Hydroxide (Milk Of Magnesia) 30 ml PO DAILY [facility] PRN Reason: Constipation Metolazone (Zaroxolyn) 2.5 mg PO DAILY [facility] Last Admin: 01/11/17 12:18 Dose: 2.5 mg Metoprolol Tartrate (Lopressor) 25 mg PO BRKDIN [facility] Last Admin: 01/11/17 17:37 Dose: 25 mg Pantoprazole Sodium (Protonix Ec Tab) 40 mg PO 0600 [facility] Last Admin: 01/11/17 07:12 Dose: 40 mg Potassium Chloride (Klor-Con 10) 10 meq PO 0800 [facility] Last Admin: 01/11/17 08:26 Dose: 10 meq Sertraline HCl (Zoloft) 50 mg PO DAILY [facility] Last Admin: 01/11/17 08:26 Dose: 50 mg Trazodone HCl (Desyrel) 50 mg PO HS [facility] Last Admin: 01/10/17 22:06 Dose: 50 mg Warfarin Sodium (Coumadin) 5 mg PO 1800 [facility] PRN Reason: Protocol Last Admin: 01/11/17 17:37 Dose: 5 mg - Labs Labs: 01/11/17 07:15 01/11/17 07:15 PT 21.8 Seconds (9.9-11.8) H 01/11/17 07:15 INR 2.02 (0.93-1.08) H 01/11/17 07:15 Assessment and Plan - Assessment and Plan (Free Text) Plan: Pt seen and examined. Resident note reviewed and I agree with it.
[2017-01-11] MEDS: metOLazone 2.5 MG TAB PO SCH (12:18)
[2017-01-11] MEDS ORDERED: Insulin Detemir 100 units/ml Vial (Levemir) SC SCH (13:20)
[2017-01-12 07:36] VITALS: RESP 15; TEMP 98.6; O2SAT 95
[2017-01-12] MEDS: Insulin Reg-MEDIUM-Coverage SC SCH ×2 (08:00→12:10)
[2017-01-12 08:48] LABS: INR 1.84 (0.93-1.08)
[2017-01-12] MEDS: Potassium Chloride 10 mEq ER Tab PO SCH (14:00)
[2017-01-12] MEDS: Pantoprazole 40 mg EC Tab PO SCH (14:00)
[2017-01-12 14:04] VITALS: BP 134/64; PULSE 62
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
== END 2017-01-12 15:44 | disposition home or self-care (01) | DRG 882 ==
LOC: ED 15:13 → PSYC 17:44
PROVIDERS: ADMIT Psychiatry & Neurology Addiction Medicine; ATTEND Psychiatry & Neurology Addiction Medicine
DX: F43.29 Adjustment disorder with other symptoms (principal); F42.9 Obsessive-compulsive disorder, unspecified; F32.9 Major depressive disorder, single episode, unspecified; I48.91 Unspecified atrial fibrillation; I10 Essential (primary) hypertension; E11.9 Type 2 diabetes mellitus without complications; I25.10 Atherosclerotic heart disease of native coronary artery without angina pectoris; E78.5 Hyperlipidemia, unspecified; F17.210 Nicotine dependence, cigarettes, uncomplicated; Z79.01 Long term (current) use of anticoagulants; Z79.4 Long term (current) use of insulin; Z95.2 Presence of prosthetic heart valve; Z95.1 Presence of aortocoronary bypass graft

== ENCOUNTER 2018-05-16 18:53 | Inpatient (IN) | payer MEDICARE, OTHER ==
[2018-05-16 19:31] VITALS: BMI 25.7
[2018-05-16 20:07] LABS: HEMOGLOBIN 11.4 g/dL (14.0-18.0); MEAN CELL VOLUME 96.2 fl (80.0-105.0); MEAN CORPUSCULAR HEMOGLOBIN 29.2 pg (25.0-35.0); MEAN CORPUSCULAR HGB CONC 30.4 g/dl (31.0-37.0); MEAN PLATELET VOLUME 11.5 fl (7.0-11.0); RBC 3.9 10^6/uL (3.5-6.1); RED CELL DISTRIBUTION WIDTH 14.4 % (11.5-14.5); WHITE BLOOD COUNT 7.1 10^3/uL (4.5-11.0)
[2018-05-16 20:13] LABS: INR 1.31; PARTIAL THROMBOPLASTIN TIME 31.4 Seconds (25.1-36.5)
[2018-05-16 20:24] LABS: ALB/GLOB RATIO 1.4 (1.1-1.8); ALBUMIN 4.3 g/dL (3.0-4.8); ALT/SGPT 22 U/L (7-56); AST/SGOT 24 U/L (17-59); BLOOD UREA NITROGEN 17 mg/dL (7-21); CALCIUM 9.2 mg/dL (8.4-10.5); GFR NON-AFRICAN AMERICAN > 60; TROPONIN I 0.01 ng/mL
--- NOTE | 2018-05-16 20:43 | ED PDOC ---
Arrival/HPI - General Chief Complaint: Altered Mental Status Time Seen by Provider: 05/16/18 19:24 Historian: Patient, Family - History of Present Illness Narrative History of Present Illness (Text): 05/16/18 20:22 67 year old male, whose past medical history includes hypertension, CAD, mitral valve replacement, diabetes, A-Fib, on anticoagulation, presents to the emergency department for evaluation of onset of unresponsiveness earlier while sitting at the pharmacy store. According to the brother in law, patient seemed to exhibit some tonic posturing of his head with upward gaze. Patient soon afterward became somewhat combative and required him to be briefly restrained. Symptoms have resolved since. Patient currently is awake and alert. Patient states he knows he is at [facility], but is unsure what happened to him and is unaware of time. Patient denies any fever, chills, chest pain, shortness of breath, nausea, vomiting, diarrhea, urinary symptoms, back pain, neck pain, headache, dizziness, or any other complaints. PMD: Dr. Diana Time/Duration: Prior to Arrival Symptom Onset: Sudden Symptom Course: Resolved Activities at Onset: Light Context: Other Past Medical History - Provider Review Nursing Documentation Reviewed: Yes - Infectious Disease Hx of Infectious Diseases: None - Cardiac Hx Cardiac Disorders: Yes ([place], CAD, MVP, A-fib, CABG) Hx Hypertension: Yes - Pulmonary Hx Respiratory Disorders: No Hx Tuberculosis: No - Neurological Hx Neurological Disorder: No - HEENT Hx HEENT Disorder: Yes Hx Cataracts: Yes (cataraxt sx) Hx Glaucoma: Yes - Renal Hx Renal Disorder: Yes Hx Renal Failure: Yes - Endocrine/Metabolic Hx Endocrine Disorders: Yes Hx Diabetes Mellitus Type 2: Yes - Hematological/Oncological Hx Blood Disorders: Yes Hx Anemia: Yes Hx Blood Transfusions: Yes - Integumentary Hx Dermatological Disorder: Yes Hx Cellulitis: Yes - Musculoskeletal/Rheumatological Hx Musculoskeletal Disorders: Yes Hx Arthritis: Yes - Gastrointestinal Hx Gastrointestinal Disorders: Yes Hx Diverticulitis: Yes - Genitourinary/Gynecological Hx Prostate Problems: Yes - Psychiatric Hx Psychophysiologic Disorder: Yes Hx Anxiety: Yes Hx Depression: Yes Hx Schizophrenia: Yes Hx Substance Use: No - Surgical History Hx Coronary Artery Bypass Graft: Yes (1997) - Anesthesia Hx Anesthesia: Yes Hx Anesthesia Reactions: No Hx Malignant Hyperthermia: No Family/Social History - Physician Review Nursing Documentation Reviewed: Yes Family/Social History: No Known Family HX Smoking Status: Light Smoker < 10 Cigarettes Daily Hx Alcohol Use: Yes Hx Substance Use: No Allergies/Home Meds Allergies/Adverse Reactions: Allergies clams Allergy (Intermediate, Uncoded 11/28/17 10:24) NAUSEA Home Medications: Home Meds Medication Instructions Recorded Confirmed RX: Losartan Potassium [Cozaar] 100 mg PO DAILY 03/15/16 05/16/18 RX: Clonazepam [Klonopin] 2 mg PO HS 04/19/17 05/16/18 RX: Furosemide 40 mg PO DAILY 04/19/17 05/16/18 RX: Simvastatin 20 mg PO DAILY 04/19/17 05/16/18 RX: Warfarin [Coumadin] 5 mg PO DAILY 11/28/17 05/16/18 RX: Insulin Aspart, Recombinant 3 units SQ PRN PRN 12/27/17 05/16/18 [Novolog] RX: Magnesium Oxide [Magnesium] 1 tab PO DAILY 03/13/18 05/16/18 RX: Sertraline HCl 1 tab PO DAILY 03/13/18 05/16/18 Review of Systems - Physician Review All systems were reviewed & negative as marked: Yes - Review of Systems Constitutional: absent: Fevers, Other (Chills) Respiratory: absent: SOB Cardiovascular: absent: Chest Pain Gastrointestinal: absent: Diarrhea, Nausea, Vomiting Genitourinary Male: absent: Dysuria, Frequency, Hematuria Musculoskeletal: absent: Back Pain, Neck Pain Neurological: absent: Headache, Dizziness Physical Exam Vital Signs Reviewed: Yes Vital Signs Temp Pulse Resp BP Pulse Ox 05/16/18 19:24 97.6 F 91 H 18 162/85 H 100 05/16/18 18:53 97.5 F L 92 H 18 172/82 H 98 Temperature: Afebrile Blood Pressure: Hypertensive Pulse: Regular Respiratory Rate: Normal Appearance: Positive for: Well-Appearing, Non-Toxic, Comfortable Pain Distress: None Mental Status: Positive for: other (Alert and oriented to place and person ) Finger Stick Blood Glucose: 392 - Systems Exam Head: Present: Atraumatic, Normocephalic Pupils: Present: PERRL Extroacular Muscles: Present: EOMI Conjunctiva: Present: Normal Ears: Present: NORMAL TM Mouth: Present: Moist Mucous Membranes Neck: Present: Normal Range of Motion Respiratory/Chest: Present: Clear to Auscultation, Good Air Exchange. No: Respiratory Distress, Accessory Muscle Use Cardiovascular: Present: Irregular Rhythm. No: Murmurs Abdomen: No: Tenderness, Distention, Peritoneal Signs Back: Present: Normal Inspection Upper Extremity: Present: Normal Inspection. No: Cyanosis, Edema Lower Extremity: Present: Normal Inspection. No: Edema Neurological: Present: GCS=15, CN II-XII Intact, Speech Normal, Motor Func Grossly Intact, Normal Sensory Function Skin: Present: Warm, Dry, Normal Color. No: Rashes Psychiatric: Present: Alert (Alert and oriented to place and person ), Normal Insight, Normal Concentration Medical Decision Making ED Course and Treatment: 05/16/18 20:22 Impression: 67 year old male presents for evaluation of onset unresponsiveness earlier while sitting at the pharmacy store. Plan: -- CT head w/o contrast -- EKG -- Labs -- Chest X-ray -- Reassess and disposition Prior Visits: Notes and results from previous visits were reviewed. Progress Notes: 05/16/18 19:06 EKG shows NSR at 97 BPM with non-specific ST/T changes. Interpreted by me. EXAM: CT Head without Intravenous Contrast. Electronically signed on May 16, 2018 9:05:33 PM EST by: Chester Herbert M.D., IMPRESSION: 1. There is generalized parenchymal atrophy noted as demonstrated by symmetrical dilatation of ventricles and sulci. 2. Chronic periventricular and subcortical microvascular disease is seen. 3. Encephalomalacia involving right parietal lobe, compatible with an old infarct. 4. No acute intracranial pathology. 05/16/18 21:00 CXR Impression: As read by me, no acute process. 05/16/18 21:24 Case discussed with medical sociologist and Dr. Reggie Ramirez who is aware and agrees with the plan. Accepts patient into hospitalist service. - Lab Interpretations Lab Results: 05/16/18 19:30 Lab Results 05/16/18 19:30: WBC 7.1, RBC 3.90, Hgb 11.4 L, Hct 37.5 L, MCV 96.2, MCH 29.2, M CHC 30.4 L, RDW 14.4, Plt Count 338, MPV 11.5 H 05/16/18 19:30: PT 15.0 H, INR 1.31, APTT 31.4 I have reviewed the lab results: Yes - RAD Interpretation Radiology Orders: 05/16/18 19:31 HEAD W/O CONTRAST [CT] Stat CHEST ONE VIEW [RAD] Stat Tobacco Dipper: ED Physician, Radiologist - EKG Interpretation Interpreted by ED Physician: Yes Type: 12 lead EKG - Scribe Statement The provider has reviewed the documentation as recorded by the Ronel Gomez Provider Scribe Attestation: All medical record entries made by the Ronel were at my direction and personally dictated by me. I have reviewed the chart and agree that the record accurately reflects my personal performance of the history, physical exam, medical decision making, and the department course for this patient. I have also personally directed, reviewed, and agree with the discharge instructions and disposition. Disposition/Present on Arrival - Present on Arrival Any Indicators Present on Arrival: No History of DVT/PE: No History of Uncontrolled Diabetes: No Urinary Catheter: No History of Decub. Ulcer: No History Surgical Site Infection Following: None - Disposition Have Diagnosis and Disposition been Completed?: Yes Diagnosis: Syncope, Altered mental status, Seizure Disposition: HOSPITALIZED Disposition Time: 21:34 Patient Problems: Current Active Problems Problem Status Onset Altered mental status Acute Seizure Acute Syncope Acute Condition: STABLE
[2018-05-16] MEDS ORDERED: Sodium Chloride 0.9% 1,000 ML IV STA (21:35)
[2018-05-16] MEDS ORDERED: Insulin Regular 1 UNITS/0.01 ML ML ONE (22:13)
[2018-05-16] MEDS ORDERED: Insulin Regular 1 UNITS/0.01 ML ML SC STA (22:19)
[2018-05-16] MEDS ORDERED: Insulin Regular 1 UNITS/0.01 ML ML SC ONE (23:12)
[2018-05-16] MEDS ORDERED: Enoxaparin 30 mg Syringe SC SCH (23:15)
[2018-05-16] MEDS ORDERED: Influenza Vaccine 60 mcg/0.5 mL SYR (4YR UP) IM ONE (23:43)
[2018-05-16] MEDS ORDERED: Pneumococcal 23-Valent Vaccine IM ONE (23:43)
[2018-05-17] MEDS ORDERED: Sodium Chloride 0.9% 1,000 ML IV SCH (00:45)
--- NOTE | 2018-05-17 02:30 | CP.PCM.HP ---
History of Present Illness - History of Present Illness History of Present Illness: Rahul Brush DO, PGY1. H&P for Dr omalley service C.C: syncope 67 y/0 male with PMH of HTN, CAD s/p CABG, DM2, Afib(on warfarin), prosthetic MVR presents to the ED for an episode of syncope. 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 He was sitting on a chair during that time. He can not recall how he got to the hospital. He denied associated CP, palpitations, visual changes, headache, vomiting, nausea. He admits to not have adequate oral intake this day and not taking his meds for 3 weeks. He experienced similar episode few weeks ago and admitted to [facility] for UTI and d/c on a course of antibiotic that he completed. Patient denied urinary symptoms, N/V/D, bleeding per rectum, abdominal pain, leg swelling, PND, orthopnia, PND, exercise intolerance, SOB. 12points ROS reviewed with pertinent positives as above PMH: Anemia, osteoarthritis, depression, HTN, CAD s/p CABG, DM2, Afib(on warfarin) PSH:CABG, prosthetic MVR Meds: as per EMR. patient did not take any meds for the past 3 weeks ALL: NKDA SH: denied smoking, alcohol, drug use FH: non contributory PMD: Dr. Diana Present on Admission - Present on Admission Any Indicators Present on Admission: No Past Patient History - Infectious Disease Hx of Infectious Diseases: None - Past Medical History & Family History Past Medical History?: Yes - Past Social History Smoking Status: Light Smoker < 10 Cigarettes Daily - CARDIAC Hx Cardiac Disorders: Yes ([place], CAD, MVP, A-fib, CABG) Hx Hypertension: Yes - PULMONARY Hx Respiratory Disorders: No Hx Tuberculosis: No - NEUROLOGICAL Hx Neurological Disorder: No - HEENT Hx HEENT Problems: Yes Hx Cataracts: Yes (cataraxt sx) Hx Glaucoma: Yes - RENAL Hx Chronic Kidney Disease: Yes Hx Renal Failure: Yes - ENDOCRINE/METABOLIC Hx Endocrine Disorders: Yes Hx Diabetes Mellitus Type 2: Yes - HEMATOLOGICAL/ONCOLOGICAL Hx Blood Disorders: Yes Hx Anemia: Yes - INTEGUMENTARY Hx Dermatological Problems: Yes - MUSCULOSKELETAL/RHEUMATOLOGICAL Hx Falls: Yes - GASTROINTESTINAL Hx Gastrointestinal Disorders: Yes Hx Diverticulitis: Yes - GENITOURINARY/GYNECOLOGICAL Hx Prostate Problems: Yes - PSYCHIATRIC Hx Psychophysiologic Disorder: Yes Hx Anxiety: Yes Hx Depression: Yes Hx Schizophrenia: Yes - SURGICAL HISTORY Hx Surgeries: Yes - ANESTHESIA Hx Anesthesia: Yes Hx Anesthesia Reactions: No Hx Malignant Hyperthermia: No Meds Allergies/Adverse Reactions: Allergies Allergy/AdvReac Type Severity Reaction Status Date / Time clams Allergy Intermediate NAUSEA Uncoded 11/28/17 10:24 Physical Exam - Constitutional Appears: Well, No Acute Distress - Head Exam Head Exam: ATRAUMATIC, NORMAL INSPECTION, NORMOCEPHALIC - Eye Exam Eye Exam: EOMI, Normal appearance, PERRL Pupil Exam: NORMAL ACCOMODATION, PERRL - ENT Exam ENT Exam: Mucous Membranes Dry - Respiratory Exam Respiratory Exam: Clear to Auscultation Bilateral, NORMAL BREATHING PATTERN. absent: Rhonchi, Wheezes - Cardiovascular Exam Cardiovascular Exam: Clicks, Irregular Rhythm, +S1, +S2 - GI/Abdominal Exam GI & Abdominal Exam: Normal Bowel Sounds, Soft. absent: Tenderness - Extremities Exam Extremities exam: Positive for: normal capillary refill, normal inspection, pedal pulses present - Back Exam Back exam: NORMAL INSPECTION. absent: CVA tenderness (L), CVA tenderness (R) - Neurological Exam Neurological exam: Alert, CN II-XII Intact, Normal Gait, Oriented x3, Reflexes Normal - Psychiatric Exam Psychiatric exam: Normal Affect, Normal Mood - Skin Skin Exam: Dry, Intact, Normal Color, Warm Results - Vital Signs Recent Vital Signs: Last Vital Signs Temp 98 F 05/16/18 22:16 Pulse 69 05/16/18 23:23 Resp 18 05/16/18 23:44 BP 191/94 H 05/16/18 23:23 Pulse Ox 99 05/16/18 22:16 - Labs Result Diagrams: 05/16/18 19:30 05/16/18 19:30 Labs: Laboratory Results - last 24 hr 05/16/18 05/16/18 05/16/18 19:30 19:30 19:30 WBC 7.1 RBC 3.90 Hgb 11.4 L Hct 37.5 L MCV 96.2 MCH 29.2 MCHC 30.4 L RDW 14.4 Plt Count 338 MPV 11.5 H PT 15.0 H INR 1.31 APTT 31.4 Sodium 140 Potassium 4.0 Chloride 101 Carbon Dioxide 22 Anion Gap 21 H BUN 17 Creatinine 1.2 Est GFR ( Amer) > 60 Est GFR (Non-Af Amer) > 60 POC Glucose (mg/dL) Random Glucose 435 H* D Calcium 9.2 Magnesium Total Bilirubin 1.3 AST 24 ALT 22 Alkaline Phosphatase 143 H D Lactate Dehydrogenase 1152 H Total Creatine Kinase 46 Troponin I 0.01 Total Protein 7.3 Albumin 4.3 Globulin 3.0 Albumin/Globulin Ratio 1.4 05/16/18 05/16/18 05/16/18 19:30 22:09 22:54 WBC RBC Hgb Hct MCV MCH MCHC RDW Plt Count MPV PT INR APTT Sodium Potassium Chloride Carbon Dioxide Anion Gap BUN Creatinine Est GFR ( Amer) Est GFR (Non-Af Amer) POC Glucose (mg/dL) 400 H* 392 H Random Glucose Calcium Magnesium 1.5 L Total Bilirubin AST ALT Alkaline Phosphatase Lactate Dehydrogenase Total Creatine Kinase Troponin I Total Protein Albumin Globulin Albumin/Globulin Ratio 05/17/18 02:04 WBC RBC Hgb Hct MCV MCH MCHC RDW Plt Count MPV PT INR APTT Sodium Potassium Chloride Carbon Dioxide Anion Gap BUN Creatinine Est GFR ( Amer) Est GFR (Non-Af Amer) POC Glucose (mg/dL) 107 Random Glucose Calcium Magnesium Total Bilirubin AST ALT Alkaline Phosphatase Lactate Dehydrogenase Total Creatine Kinase Troponin I Total Protein Albumin Globulin Albumin/Globulin Ratio Assessment & Plan - Assessment and Plan (Free Text) Assessment: 67-y/0 male with PMH of HTN, CAD s/p CABG, DM2, Afib(on warfarin), prosthetic MVR presents to the ED for an episode of syncope Plan: Syncope: -CT head: no ICH. Encephalomalacia involving right parietal lobe, compatible with an old infarct -EKG shows NSR at 97 BPM with non-specific ST/T changes -CXR: no active diease -continue IVF ns@100cc/hr -PT eval/treat -neuro consulted. Dr Johns HTN: -continue home med coozar DM: -accucheck -Hgb A1C -ISS-low h/o anxiety: -continue home med clonopin, zoloft Prophylaxis: -DVT ppx: heparin sq, SCD -GI ppx: protonix Heart healthy diet Case reviewed and plan discussed with attending Dr Reggie Brush, DO, PGY1
[2018-05-17 03:41] LABS: PH,URINE 6.5 (4.7-8.0); URINE BILIRUBIN NEGATIVE (NEGATIVE); URINE BLOOD SMALL (NEGATIVE); URINE GLUCOSE (UA) 100 mg/dL (NEGATIVE); URINE LEUKOCYTE ESTERASE NEGATIVE Leu/uL (NEGATIVE); URINE PROTEIN 30 mg/dL (<30 mg/dL); URINE UROBILINOGEN 0.2 E.U./dL (<1 E.U./dL)
[2018-05-17 03:43] LABS: URINE APPEARANCE CLEAR (CLEAR); URINE COLOR YELLOW (YELLOW)
[2018-05-17 04:28] LABS: URINE EPITHELIAL CELLS 0 - 2 /hpf (0-5); URINE WBC 0 - 2 /hpf (0-6)
[2018-05-17 07:23] LABS: BASO # 0.01 K/mm3 (0.0-2.0); BASO % 0.1 % (0.0-3.0); EOS # 0.1 (0.0-0.7); EOS % 0.4 % (1.5-5.0); GRAN # 10.71 (1.4-6.5); GRAN % 84.7 % (50.0-68.0); HEMOGLOBIN 11.6 g/dL (14.0-18.0); LYMPH # 1.2 (1.2-3.4); LYMPH % 9.8 % (22.0-35.0); MEAN CELL VOLUME 96.4 fl (80.0-105.0); MEAN CORPUSCULAR HEMOGLOBIN 29.7 pg (25.0-35.0); MEAN CORPUSCULAR HGB CONC 30.9 g/dl (31.0-37.0); MEAN PLATELET VOLUME 11.4 fl (7.0-11.0); MONO # 0.6 (0.1-0.6); RBC 3.9 10^6/uL (3.5-6.1); RED CELL DISTRIBUTION WIDTH 14.4 % (11.5-14.5); WHITE BLOOD COUNT 12.6 10^3/uL (4.5-11.0)
[2018-05-17] MEDS ORDERED: Insulin Reg-LOW-Coverage SC SCH (07:30)
[2018-05-17 07:42] LABS: ALB/GLOB RATIO 1.1 (1.1-1.8); ALBUMIN 3.6 g/dL (3.0-4.8); ALT/SGPT 21 U/L (7-56); AST/SGOT 27 U/L (17-59); BLOOD UREA NITROGEN 17 mg/dL (7-21); CALCIUM 8.8 mg/dL (8.4-10.5); GFR NON-AFRICAN AMERICAN > 60
[2018-05-17] MEDS ORDERED: Magnesium Sulfate 2 gm/50 ml 2 GM/50 ML BAG IVPB ONE (08:33)
[2018-05-17] MEDS ORDERED: Enoxaparin 80 mg Syringe SC SCH (08:45)
[2018-05-17 08:48] LABS: INR 1.59; PARTIAL THROMBOPLASTIN TIME 35.8 Seconds (25.1-36.5); PROTHROMBIN TIME 18.5 SECONDS (9.4-12.5)
[2018-05-17] MEDS ORDERED: Potassium Chloride 20 mEq ER Tab PO ONE (09:47)
[2018-05-17] MEDS: Magnesium Oxide 400 mg Tab UD PO SCH (09:55)
--- NOTE | 2018-05-17 09:55 | RAD ---
Date of service: 05/16/2018 PROCEDURE: CHEST RADIOGRAPH, 1 VIEW HISTORY: ams COMPARISON: None available. FINDINGS: LUNGS: Clear. PLEURA: No pneumothorax or pleural fluid seen. CARDIOVASCULAR: Minimal aortic calcification mild cardiomegaly OSSEOUS STRUCTURES: Sternal wires VISUALIZED UPPER ABDOMEN: Normal. OTHER FINDINGS: None. IMPRESSION: No active disease.
[2018-05-17] MEDS: Insulin Reg-LOW-Coverage SC SCH ×4 (09:56→23:46)
--- NOTE | 2018-05-17 10:15 | CT ---
Date of service: 05/16/2018 PROCEDURE: CT HEAD WITHOUT CONTRAST. HISTORY: ams COMPARISON: None available. TECHNIQUE: Axial computed tomography images were obtained through the head/brain without intravenous contrast. Radiation dose: Total exam DLP = 1259.27 mGy-cm. This CT exam was performed using one or more of the following dose reduction techniques: Automated exposure control, adjustment of the mA and/or kV according to patient size, and/or use of iterative reconstruction technique. FINDINGS: HEMORRHAGE: No intracranial hemorrhage. BRAIN: No mass effect or edema. Severe chronic periventricular white matter ischemic disease. Old right parietal infarct. Atrophy. VENTRICLES: Unremarkable. No hydrocephalus. CALVARIUM: Unremarkable. PARANASAL SINUSES: No acute hemorrhage. MASTOID AIR CELLS: Unremarkable as visualized. No inflammatory changes. OTHER FINDINGS: None. IMPRESSION: Normal CT of the Head.
[2018-05-17 10:42] LABS: HDL CHOLESTEROL 45 mg/dL (29-60)
[2018-05-17 10:52] LABS: LDL CHOLESTEROL 65 mg/dL (0-129)
[2018-05-17] MEDS ORDERED: levETIRAcetam 1,500 MG in Sodium Chloride 0.9% 100 ML IV ONE (11:33)
[2018-05-17] MEDS ORDERED: Iohexol 350 MG/100 ML VIAL ONE (13:08)
--- NOTE | 2018-05-17 14:06 | CON ---
DATE: 05/17/2018 CONSULT SERVICE: Cardiology. REASON FOR CONSULTATION: Cardiac evaluation, history of coronary artery disease, history of atrial fibrillation, history of CABG, admitted with episode of syncopal episode. 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 Accordingly, he went down, no further recollection available. He said the same thing happened a month ago. After that, he saw Dr. Ramirez. Denies any chest pain, denies shortness of breath, denies any palpitation. PAST MEDICAL HISTORY: Significant for coronary artery disease status post CABG 20 years ago, history of diabetes, history of hypertension, history of atrial fibrillation. PAST SURGICAL HISTORY: History of coronary artery bypass surgery with questionable history of MVR, history of right breast hematoma status post surgery, questionable history of inguinal hernia surgery. SOCIAL HISTORY: Active tobacco abuse, he smokes half a pack a day. Denies any history of alcohol abuse. PREVIOUS CARDIAC WORKUP FOLLOWS: The patient had a stress test done on 05/09/2017, by Dr. Ramirez at [facility], that revealed questionable history of reversible ischemia noted, left ventricle function at 65%-70%, but Dr. Ramirez decided to treat medically; history of echo on 05/09/2017, that shows ejection fraction of 70%, mild aortic regurgitation, mild mitral regurgitation, mild tricuspid regurgitation, mild pulmonary insufficiency, ejection fraction calculated at 72%, mitral valve prosthetic appears well seated, mild mitral regurgitation. REVIEW OF SYSTEMS: As per HPI. CURRENT MEDICATIONS: The patient is taking at home, mag oxide, Coumadin 5 mg daily, simvastatin 20 mg daily, losartan, insulin, Lasix, and clonazepam. ALLERGIES: NO KNOWN DRUG ALLERGY. PHYSICAL EXAMINATION GENERAL: Height of the patient 5 feet 11 inches. Weight of the patient 185 pounds. Body mass index 25.8 kg/m2. VITAL SIGNS: Temperature afebrile, heart is 70 and blood pressure 148/72. HEENT: PERRLA. Extraocular muscles intact. NECK: Supple. No carotid bruits or thyromegaly. CHEST: Clear to auscultation. HEART: S1 and S2, regular. ABDOMEN: Soft. EXTREMITIES: Clubbing and cyanosis negative. LABORATORY DATA: Blood workup as follows; WBC 12.6, hemoglobin 11.6, hematocrit 37.6, platelet count 252. Chemistry shows sodium 139, potassium , chloride 103, carbon dioxide 28, anion gap of 11, BUN 17, creatinine 1.0. INR 1.59. IMPRESSION AND PLAN: A 67-year-old male with past medical history significant for coronary artery disease status post coronary artery bypass graft in 1997; status post mitral valve prolapse bioprosthetic; history of diabetes, hypertension, and hyperlipidemia; history of cataract surgery, history of right breast surgery for hematoma, who was admitted with a near syncopal episode. Last stress test in 2017 was abnormal, I am not sure whether intervention was done. Last echo showed preserved LV function, ejection fraction of 65%. The patient is being followed by Dr. Ramirez. Admitted with a syncope inpatient, impression, rule out any structural heart disease. We will get echo to assess left ventricular function as well as we will do orthostatic hypotension. We will also get in touch with Dr. Tino Ramirez to see whether the patient had any catheterization done after the abnormal stress test. Interim, we will continue all the medications and restart all the medications. Further we will get lipid profile, TSH, and hemoglobin A1c. Further recommendation depending on the hospital course. We will follow with you. EKG showed Atrial fibrillation with a rapid ventricular rate on admission, but now the telemetry shows controlled rate. We will follow with you. Thank you Dr. Argueta for providing us the opportunity in taking care of the patient, Rick Gudino. Rosalio Rivera MD [facility] # [id number]
--- NOTE | 2018-05-17 14:06 | CP.PCM.CON ---
<Arnulfo Goode - Last Filed: 05/18/18 15:36> History of Present Illness - History of Present Illness History of Present Illness: Neurology Consult note Patient is a 67 M with a history of HTN, CAD s/p CABG, DM2, Afib(on warfarin), prosthetic MVR who presented to the ED for an episode of syncope. 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 Patient has no recollection of events after that as he woke up next in the hospital. Patient is known for being non compliant with his medications, evidenced by his INR 1.5. PMD: Dr. Diana PMH: Anemia, osteoarthritis, depression, HTN, CAD s/p CABG, DM2, Afib(on warfarin) PSH:CABG, prosthetic MVR Meds: as per EMR. patient did not take any meds for the past 3 weeks ALL: NKDA SH: denied smoking, alcohol, drug use FH: non contributory Physical Exam - Constitutional Appears: Non-toxic, No Acute Distress - Head Exam Head Exam: ATRAUMATIC, NORMAL INSPECTION, NORMOCEPHALIC - ENT Exam Additional comments: poor dentation - Neck Exam Neck Exam: Full ROM - Respiratory Exam Respiratory Exam: Clear to Ausculation Bilateral, NORMAL BREATHING PATTERN - Cardiovascular Exam Cardiovascular Exam: Irregular Rhythm, +S1, +S2 - GI/Abdominal Exam GI & Abdominal Exam: Soft, Normal Bowel Sounds - Neurological Exam Neurological Exam: Alert, Awake, Oriented x3 Neuro motor strength exam: Left Upper Extremity: 3, Right Upper Extremity: 4, Left Lower Extremity: 3, Right Lower Extremity: 4, apraxia, dysarthria without aphasia - Psychiatric Exam Psychiatric exam: Normal Affect, Normal Mood - Skin Skin Exam: Normal Color Additional comments: stasis dermatitis in lower legs bilaterally Review of Systems - Review of Systems Systems not reviewed;Unavailable: Other (ROS limited due to patient being fatigued form home klonipin dosage. ) - Constitutional Constitutional: Chills - EENT Nose/Mouth/Throat: Nasal Congestion - Cardiovascular Cardiovascular: Chest Pain, Dyspnea - Gastrointestinal Gastrointestinal: Abdominal Pain, Nausea - Neurological Neurological: Confusion, Convulsions, Numbness, Headaches, Tingling - Psychiatric Psychiatric: Anxiety - Endocrine Endocrine: Fatigue Past Patient History - Infectious Disease Hx of Infectious Diseases: None - Past Medical History & Family History Past Medical History?: Yes - Past Social History Smoking Status: Light Smoker < 10 Cigarettes Daily - CARDIAC Hx Cardiac Disorders: Yes (NE, CAD, MVP, A-fib, CABG) Hx Hypertension: Yes - PULMONARY Hx Respiratory Disorders: No Hx Tuberculosis: No - NEUROLOGICAL Hx Neurological Disorder: No - HEENT Hx HEENT Problems: Yes Hx Cataracts: Yes (cataraxt sx) Hx Glaucoma: Yes - RENAL Hx Chronic Kidney Disease: Yes Hx Renal Failure: Yes - ENDOCRINE/METABOLIC Hx Endocrine Disorders: Yes Hx Diabetes Mellitus Type 2: Yes - HEMATOLOGICAL/ONCOLOGICAL Hx Blood Disorders: Yes Hx Anemia: Yes - INTEGUMENTARY Hx Dermatological Problems: Yes - MUSCULOSKELETAL/RHEUMATOLOGICAL Hx Falls: Yes - GASTROINTESTINAL Hx Gastrointestinal Disorders: Yes Hx Diverticulitis: Yes - GENITOURINARY/GYNECOLOGICAL Hx Prostate Problems: Yes - PSYCHIATRIC Hx Psychophysiologic Disorder: Yes Hx Anxiety: Yes Hx Depression: Yes Hx Schizophrenia: Yes - SURGICAL HISTORY Hx Surgeries: Yes - ANESTHESIA Hx Anesthesia: Yes Hx Anesthesia Reactions: No Hx Malignant Hyperthermia: No Meds Allergies/Adverse Reactions: Allergies Allergy/AdvReac Type Severity Reaction Status Date / Time clams Allergy Intermediate NAUSEA Uncoded 11/28/17 10:24 - Medications Medications: Current Medications Acetaminophen (Tylenol 650 Mg Supp) 650 mg RC Q4H PRN PRN Reason: Fever >100.4 F Last Admin: 05/17/18 13:46 Dose: 650 mg Aspirin (Aspirin Chewable) 81 mg PO DAILY [facility] Last Admin: 05/17/18 12:41 Dose: 81 mg Atorvastatin Calcium (Lipitor) 10 mg PO DIN [facility] Clonazepam (Klonopin) 2 mg PO HS [facility] Last Admin: 05/16/18 23:22 Dose: 2 mg Enoxaparin Sodium (Lovenox) 80 mg SC Q12H [facility]; Protocol Last Admin: 05/17/18 10:00 Dose: 80 mg Furosemide (Lasix) 40 mg PO DAILY [facility] Last Admin: 05/17/18 10:00 Dose: Not Given Insulin Human Regular (Humulin R Low) 0 units SC [facility]; Protocol Last Admin: 05/17/18 12:42 Dose: 1 unit Levetiracetam (Keppra) 500 mg PO BID [facility] Losartan Potassium (Cozaar) 100 mg PO DAILY [facility] Magnesium Oxide (Mag-Ox) 400 mg PO DAILY [facility] Last Admin: 05/17/18 09:55 Dose: 400 mg Sertraline HCl (Zoloft) 50 mg PO DAILY [facility] Last Admin: 05/17/18 09:55 Dose: 50 mg Warfarin Sodium (Coumadin) 5 mg PO 1800 [facility]; Protocol Results - Vital Signs Recent Vital Signs: Last Vital Signs Temp 100.7 F H 05/17/18 13:46 Pulse 68 05/17/18 12:00 Resp 18 05/17/18 12:00 BP 192/97 H 05/17/18 12:00 Pulse Ox 98 05/17/18 06:00 - Labs Result Diagrams: 05/18/18 06:00 05/18/18 06:00 Labs: Laboratory Results - last 24 hr 05/16/18 05/16/18 05/16/18 19:30 19:30 19:30 WBC 7.1 RBC 3.90 Hgb 11.4 L Hct 37.5 L MCV 96.2 MCH 29.2 MCHC 30.4 L RDW 14.4 Plt Count 338 MPV 11.5 H Gran % Lymph % (Auto) [place] % (Auto) Eos % (Auto) Baso % (Auto) Gran # Lymph # (Auto) [place] # (Auto) Eos # (Auto) Baso # (Auto) PT 15.0 H INR 1.31 APTT 31.4 Sodium 140 Potassium 4.0 Chloride 101 Carbon Dioxide 22 Anion Gap 21 H BUN 17 Creatinine 1.2 Est GFR ( Amer) > 60 Est GFR (Non-Af Amer) > 60 POC Glucose (mg/dL) Random Glucose 435 H* D Hemoglobin A1c Calcium 9.2 Magnesium Total Bilirubin 1.3 AST 24 ALT 22 Alkaline Phosphatase 143 H D Lactate Dehydrogenase 1152 H Total Creatine Kinase 46 Troponin I 0.01 Total Protein 7.3 Albumin 4.3 Globulin 3.0 Albumin/Globulin Ratio 1.4 Triglycerides Cholesterol LDL Cholesterol Direct HDL Cholesterol TSH 3rd Generation Urine Color Urine Appearance Urine pH Ur Specific [place] Urine Protein Urine Glucose (UA) Urine Ketones Urine Blood Urine Nitrate Urine Bilirubin Urine Urobilinogen Ur Leukocyte Esterase Urine RBC Urine WBC Ur Epithelial Cells Urine Bacteria 05/16/18 05/16/18 05/16/18 19:30 19:30 22:09 WBC RBC Hgb Hct MCV MCH MCHC RDW Plt Count MPV Gran % Lymph % (Auto) [place] % (Auto) Eos % (Auto) Baso % (Auto) Gran # Lymph # (Auto) [place] # (Auto) Eos # (Auto) Baso # (Auto) PT INR APTT Sodium Potassium Chloride Carbon Dioxide Anion Gap BUN Creatinine Est GFR ( Amer) Est GFR (Non-Af Amer) POC Glucose (mg/dL) 400 H* Random Glucose Hemoglobin A1c 8.8 H Calcium Magnesium 1.5 L Total Bilirubin AST ALT Alkaline Phosphatase Lactate Dehydrogenase Total Creatine Kinase Troponin I Total Protein Albumin Globulin Albumin/Globulin Ratio Triglycerides Cholesterol LDL Cholesterol Direct HDL Cholesterol TSH 3rd Generation Urine Color Urine Appearance Urine pH Ur Specific [place] Urine Protein Urine Glucose (UA) Urine Ketones Urine Blood Urine Nitrate Urine Bilirubin Urine Urobilinogen Ur Leukocyte Esterase Urine RBC Urine WBC Ur Epithelial Cells Urine Bacteria 05/16/18 05/17/18 05/17/18 22:54 02:04 02:15 WBC RBC Hgb Hct MCV MCH MCHC RDW Plt Count MPV Gran % Lymph % (Auto) [place] % (Auto) Eos % (Auto) Baso % (Auto) Gran # Lymph # (Auto) [place] # (Auto) Eos # (Auto) Baso # (Auto) PT INR APTT Sodium Potassium Chloride Carbon Dioxide Anion Gap BUN Creatinine Est GFR ( Amer) Est GFR (Non-Af Amer) POC Glucose (mg/dL) 392 H 107 Random Glucose Hemoglobin A1c Calcium Magnesium Total Bilirubin AST ALT Alkaline Phosphatase Lactate Dehydrogenase Total Creatine Kinase Troponin I Total Protein Albumin Globulin Albumin/Globulin Ratio Triglycerides Cholesterol LDL Cholesterol Direct HDL Cholesterol TSH 3rd Generation Urine Color Yellow Urine Appearance Clear Urine pH 6.5 Ur Specific [place] 1.015 Urine Protein 30 H Urine Glucose (UA) 100 H Urine Ketones Negative Urine Blood Small H Urine Nitrate Negative Urine Bilirubin Negative Urine Urobilinogen 0.2 Ur Leukocyte Esterase Negative Urine RBC 1 - 3 H Urine WBC 0 - 2 Ur Epithelial Cells 0 - 2 Urine Bacteria None 05/17/18 05/17/18 05/17/18 06:00 06:18 06:30 WBC 12.6 H D RBC 3.90 Hgb 11.6 L Hct 37.6 L MCV 96.4 MCH 29.7 MCHC 30.9 L RDW 14.4 Plt Count 252 MPV 11.4 H Gran % 84.7 H Lymph % (Auto) 9.8 L [place] % (Auto) 5.0 Eos % (Auto) 0.4 L Baso % (Auto) 0.1 Gran # 10.71 H Lymph # (Auto) 1.2 [place] # (Auto) 0.6 Eos # (Auto) 0.1 Baso # (Auto) 0.01 PT INR APTT Sodium Potassium Chloride Carbon Dioxide Anion Gap BUN Creatinine Est GFR ( Amer) Est GFR (Non-Af Amer) POC Glucose (mg/dL) 142 H Random Glucose Hemoglobin A1c Calcium Magnesium Total Bilirubin AST ALT Alkaline Phosphatase Lactate Dehydrogenase Total Creatine Kinase Troponin I Total Protein Albumin Globulin Albumin/Globulin Ratio Triglycerides Cholesterol LDL Cholesterol Direct HDL Cholesterol TSH 3rd Generation 1.12 Urine Color Urine Appearance Urine pH Ur Specific [place] Urine Protein Urine Glucose (UA) Urine Ketones Urine Blood Urine Nitrate Urine Bilirubin Urine Urobilinogen Ur Leukocyte Esterase Urine RBC Urine WBC Ur Epithelial Cells Urine Bacteria 05/17/18 05/17/18 05/17/18 06:30 06:30 08:25 WBC RBC Hgb Hct MCV MCH MCHC RDW Plt Count MPV Gran % Lymph % (Auto) [place] % (Auto) Eos % (Auto) Baso % (Auto) Gran # Lymph # (Auto) [place] # (Auto) Eos # (Auto) Baso # (Auto) PT 18.5 H INR 1.59 APTT 35.8 Sodium 139 Potassium 3.7 Chloride 103 Carbon Dioxide 28 Anion Gap 11 BUN 17 Creatinine 1.0 Est GFR ( Amer) > 60 Est GFR (Non-Af Amer) > 60 POC Glucose (mg/dL) Random Glucose 145 H Hemoglobin A1c Calcium 8.8 Magnesium Total Bilirubin 1.4 H AST 27 ALT 21 Alkaline Phosphatase 127 H Lactate Dehydrogenase Total Creatine Kinase Troponin I Total Protein 7.0 Albumin 3.6 Globulin 3.4 Albumin/Globulin Ratio 1.1 Triglycerides 61 Cholesterol 118 L LDL Cholesterol Direct 65 HDL Cholesterol 45 TSH 3rd Generation Urine Color Urine Appearance Urine pH Ur Specific [place] Urine Protein Urine Glucose (UA) Urine Ketones Urine Blood Urine Nitrate Urine Bilirubin Urine Urobilinogen Ur Leukocyte Esterase Urine RBC Urine WBC Ur Epithelial Cells Urine Bacteria 05/17/18 11:16 WBC RBC Hgb Hct MCV MCH MCHC RDW Plt Count MPV Gran % Lymph % (Auto) [place] % (Auto) Eos % (Auto) Baso % (Auto) Gran # Lymph # (Auto) [place] # (Auto) Eos # (Auto) Baso # (Auto) PT INR APTT Sodium Potassium Chloride Carbon Dioxide Anion Gap BUN Creatinine Est GFR ( Amer) Est GFR (Non-Af Amer) POC Glucose (mg/dL) 191 H Random Glucose Hemoglobin A1c Calcium Magnesium Total Bilirubin AST ALT Alkaline Phosphatase Lactate Dehydrogenase Total Creatine Kinase Troponin I Total Protein Albumin Globulin Albumin/Globulin Ratio Triglycerides Cholesterol LDL Cholesterol Direct HDL Cholesterol TSH 3rd Generation Urine Color Urine Appearance Urine pH Ur Specific [place] Urine Protein Urine Glucose (UA) Urine Ketones Urine Blood Urine Nitrate Urine Bilirubin Urine Urobilinogen Ur Leukocyte Esterase Urine RBC Urine WBC Ur Epithelial Cells Urine Bacteria Assessment & Plan - Assessment and Plan (Free Text) Plan: -MRI Brain -CTA head and neck -Recommend TASHA will start with Echo as patient has a history of non compliance with coumadin and has MVR <Obinna Johns - Last Filed: 05/18/18 20:40> Meds - Medications Medications: Current Medications Acetaminophen (Tylenol 325mg Tab) 650 mg PO Q6H PRN PRN Reason: Headache Last Admin: 05/18/18 17:26 Dose: 650 mg Aspirin (Aspirin Chewable) 81 mg PO DAILY [facility] Last Admin: 05/18/18 11:11 Dose: 81 mg Atorvastatin Calcium (Lipitor) 10 mg PO DIN [facility] Last Admin: 05/18/18 17:27 Dose: 10 mg Furosemide (Lasix) 40 mg PO DAILY [facility] Last Admin: 05/18/18 13:20 Dose: 40 mg Heparin Sodium/Sodium Chloride (Heparin 30418 Units/250ml 1/2 Normal Saline) 25,000 units in 250 mls @ 14.696 mls/hr IV .Q17H1M PRN; Protocol PRN Reason: ADJUST RATE PER PROTOCOL Last Admin: 05/18/18 12:44 Dose: 15 units/kg/hr, 12.247 mls/hr Cefepime HCl (Maxipime 2gm) 2 gm in 100 mls @ 100 mls/hr IVPB Q12 [facility]; Protocol Stop: 05/23/18 11:31 Last Admin: 05/18/18 14:17 Dose: 100 mls/hr Vancomycin HCl (Vancomycin 1gm) 1 gm in 250 mls @ 167 mls/hr IVPB Q12H [facility]; Protocol Last Admin: 05/18/18 15:55 Dose: 167 mls/hr Insulin Human Regular (Humulin R Low) 0 units SC ACHS [facility]; Protocol Last Admin: 05/18/18 17:26 Dose: 1 unit Levetiracetam (Keppra) 500 mg PO BID [facility] Last Admin: 05/18/18 17:27 Dose: 500 mg Losartan Potassium (Cozaar) 100 mg PO DAILY [facility] Last Admin: 05/18/18 11:09 Dose: 100 mg Magnesium Oxide (Mag-Ox) 400 mg PO DAILY [facility] Last Admin: 05/18/18 11:10 Dose: 400 mg Sertraline HCl (Zoloft) 50 mg PO DAILY [facility] Last Admin: 05/18/18 12:43 Dose: 50 mg Warfarin Sodium (Coumadin) 5 mg PO 1800 [facility]; Protocol Last Admin: 05/18/18 17:26 Dose: 5 mg Results - Vital Signs Recent Vital Signs: Last Vital Signs Temp 97.9 F 05/18/18 18:00 Pulse 68 05/18/18 19:00 Resp 16 05/18/18 18:00 BP 171/73 H 05/18/18 19:00 Pulse Ox 99 05/18/18 18:00 - Labs Result Diagrams: 05/18/18 06:00 05/18/18 06:00 Labs: Laboratory Results - last 24 hr 05/17/18 05/17/18 05/17/18 15:30 21:27 22:35 WBC RBC Hgb Hct MCV MCH MCHC RDW Plt Count MPV Gran % Lymph % (Auto) [place] % (Auto) Eos % (Auto) Baso % (Auto) Gran # Lymph # (Auto) [place] # (Auto) Eos # (Auto) Baso # (Auto) PT INR APTT 107.0 H* Sodium Potassium Chloride Carbon Dioxide Anion Gap BUN Creatinine Est GFR ( Amer) Est GFR (Non-Af Amer) POC Glucose (mg/dL) 149 H Random Glucose Calcium Magnesium Total Bilirubin AST ALT Alkaline Phosphatase Total Protein Albumin Globulin Albumin/Globulin Ratio Procalcitonin 0.09 L 05/18/18 05/18/18 05/18/18 06:00 06:00 06:00 WBC 6.9 D RBC 3.57 Hgb 10.4 L Hct 33.5 L MCV 93.8 MCH 29.1 MCHC 31.0 RDW 14.3 Plt Count 249 MPV 11.1 H Gran % 71.4 H Lymph % (Auto) 15.0 L [place] % (Auto) 13.4 H Eos % (Auto) 0.1 L Baso % (Auto) 0.1 Gran # 4.89 Lymph # (Auto) 1.0 L [place] # (Auto) 0.9 H Eos # (Auto) 0.0 Baso # (Auto) 0.01 PT 24.5 H INR 2.10 APTT 77.4 H Sodium 137 Potassium 3.2 L Chloride 102 Carbon Dioxide 32 Anion Gap 7 L BUN 21 Creatinine 1.0 Est GFR ( Amer) > 60 Est GFR (Non-Af Amer) > 60 POC Glucose (mg/dL) Random Glucose 159 H Calcium 8.3 L Magnesium 1.6 L Total Bilirubin 1.2 AST 21 ALT 27 Alkaline Phosphatase 107 Total Protein 5.8 Albumin 2.9 L Globulin 2.8 Albumin/Globulin Ratio 1.0 L Procalcitonin 05/18/18 05/18/18 05/18/18 07:47 11:44 11:55 WBC RBC Hgb Hct MCV MCH MCHC RDW Plt Count MPV Gran % Lymph % (Auto) [place] % (Auto) Eos % (Auto) Baso % (Auto) Gran # Lymph # (Auto) [place] # (Auto) Eos # (Auto) Baso # (Auto) PT INR APTT 76.4 H Sodium Potassium Chloride Carbon Dioxide Anion Gap BUN Creatinine Est GFR ( Amer) Est GFR (Non-Af Amer) POC Glucose (mg/dL) 146 H 153 H Random Glucose Calcium Magnesium Total Bilirubin AST ALT Alkaline Phosphatase Total Protein Albumin Globulin Albumin/Globulin Ratio Procalcitonin 05/18/18 15:54 WBC RBC Hgb Hct MCV MCH MCHC RDW Plt Count MPV Gran % Lymph % (Auto) [place] % (Auto) Eos % (Auto) Baso % (Auto) Gran # Lymph # (Auto) [place] # (Auto) Eos # (Auto) Baso # (Auto) PT INR APTT Sodium Potassium Chloride Carbon Dioxide Anion Gap BUN Creatinine Est GFR ( Amer) Est GFR (Non-Af Amer) POC Glucose (mg/dL) 196 H Random Glucose Calcium Magnesium Total Bilirubin AST ALT Alkaline Phosphatase Total Protein Albumin Globulin Albumin/Globulin Ratio Procalcitonin Assessment & Plan - Assessment and Plan (Free Text) Plan: Mr Gudino will require a stroke work up and has a thrombus that may require heparin IV. I examined the patient independently and formulated the assessment ad plan. Neurology
--- NOTE | 2018-05-17 14:46 | CARD ---
APPROVED REPORT Date of service: 05/17/2018 EXAM: Two-dimensional and M-mode echocardiogram with Doppler and color Doppler. INDICATION SYNCOPE..S/P MVR 2D DIMENSIONS Left Atrium (2D)5.7 (1.6-4.0cm)IVSd1.1 (0.7-1.1cm) LVDd4.9 (3.9-5.9cm)PWd1.2 (0.7-1.1cm) LVDs3.1 (2.5-4.0cm)FS (%) 36.0 % LVEF (%)65.4 (>50%) M-Mode DIMENSIONS Aortic Root3.70 (2.2-3.7cm)Aortic Cusp Exc.1.20 (1.5-2.0cm) Aortic Valve AoV Peak Fsfnixac790.0cm/Tayo Peak GR.18mmHgLVOT Peak Qhwyevee25.2cm/s LVOT VTI15.40cm Mitral Valve MV E Peak Gr.42mmHgMV E Mean Gr.13mmHgMV [id number] E/A ratio0.0MVA (PHT)2.93cm2 TDI E/Lateral E'0.0E/Medial E'0.0 Pulmonary Valve PV Peak Iugunozd92.6cm/sPV Peak Grad.2mmHg Tricuspid Valve TR Peak [id number]/sRAP [id number] Peak Gr.68mmHg [id number] LEFT VENTRICLE The left ventricle is normal size. There is normal left ventricular wall thickness. The left ventricular function is normal.EF-60-65% There is normal LV segmental wall motion. A fib No left ventricle thrombus noted on this study. There is no ventricular septal defect visualized. There is no left ventricular aneurysm. There is no mass noted in the left ventricle. RIGHT VENTRICLE The right ventricle is mildly to moderately dilated. There is normal right ventricular wall thickness. Systolic function is mildly to moderately reduced. ATRIA The left atrium is moderately dilated. Echogenic Mobile strucutre noted in [place], Not very clear, could be throimbus. The right atrium is mildly dilated. The interatrial septum is intact with no evidence for an atrial septal defect. AORTIC VALVE The aortic valve is moderately thickened. There is trivial aortic regurgitation. Aortic Sclerosis Vs mild There is no aortic valvular vegetation. MITRAL VALVE Mitral regurgitation is trace. There is a mechanical mitral valve. TRICUSPID VALVE The tricuspid valve leaflets are thickened , but open well. There is mild to moderate tricuspid regurgitation.RVSP-78 mmof hg. There is no tricuspid valve stenosis. There is no tricuspid valve prolapse or vegetation. GREAT VESSELS The aortic root is normal in size. The ascending aorta is normal in size. The pulmonary artery is normal. The IVC is normal in size and collapses >50% with inspiration. PERICARDIAL EFFUSION There is no pleural effusion. There is no pericardial effusion. <Conclusion> The left atrium is moderately dilated. The right atrium is mildly dilated. The left ventricle is normal size. There is normal left ventricular wall thickness. The left ventricular function is normal.EF-60-65% The right ventricle is mildly to moderately dilated. Systolic function is mildly to moderately reduced. There is trivial aortic regurgitation. Mitral regurgitation is trace. There is a mechanical mitral valve. There is mild to moderate tricuspid regurgitation.RVSP-78 mmof hg. The IVC is normal in size and collapses >50% with inspiration. There is no pericardial effusion. Echogenic Mobile strucutre noted in [place], Not very clear, could be throimbus. Suggest TASHA
--- NOTE | 2018-05-17 14:53 | CP.PCM.APN ---
Subjective - Date & Time of Evaluation Date of Evaluation: 05/17/18 Time of Evaluation: 10:15 - Subjective Subjective: Pt. seen and examined at bedside. Noted to be resting comfortabley. Review of Systems - Constitutional Constitutional: As Per HPI - EENT Eyes: As Per HPI Ears: As Per HPI Nose/Mouth/Throat: As Per HPI - Cardiovascular Cardiovascular: As Per HPI - Respiratory Respiratory: As Per HPI - Gastrointestinal Gastrointestinal: As Per HPI - Genitourinary Genitourinary: As Per HPI - Neurological Neurological: As Per HPI - Endocrine Endocrine: As Per HPI - Hematologic/Lymphatic Hematologic: As Per HPI Objective - Vital Signs/Intake and Output Vital Signs (last 24 hours): Temp Pulse Resp BP Pulse Ox 100.7 F H 68 18 192/97 H 98 05/17/18 13:46 05/17/18 12:00 05/17/18 12:00 05/17/18 12:00 05/17/18 06:00 Intake and Output: 05/17/18 05/17/18 06:59 18:59 Intake Total 600 Balance 600 - Medications Medications: Current Medications Acetaminophen (Tylenol 650 Mg Supp) 650 mg RC Q4H PRN PRN Reason: Fever >100.4 F Last Admin: 05/17/18 13:46 Dose: 650 mg Aspirin (Aspirin Chewable) 81 mg PO DAILY [facility] Last Admin: 05/17/18 12:41 Dose: 81 mg Atorvastatin Calcium (Lipitor) 10 mg PO DIN [facility] Clonazepam (Klonopin) 2 mg PO HS [facility] Last Admin: 05/16/18 23:22 Dose: 2 mg Enoxaparin Sodium (Lovenox) 80 mg SC Q12H [facility]; Protocol Last Admin: 05/17/18 10:00 Dose: 80 mg Furosemide (Lasix) 40 mg PO DAILY [facility] Last Admin: 05/17/18 10:00 Dose: Not Given Insulin Human Regular (Humulin R Low) 0 units SC [facility]; Protocol Last Admin: 05/17/18 12:42 Dose: 1 unit Levetiracetam (Keppra) 500 mg PO BID [facility] Losartan Potassium (Cozaar) 100 mg PO DAILY [facility] Magnesium Oxide (Mag-Ox) 400 mg PO DAILY [facility] Last Admin: 05/17/18 09:55 Dose: 400 mg Sertraline HCl (Zoloft) 50 mg PO DAILY [facility] Last Admin: 05/17/18 09:55 Dose: 50 mg Warfarin Sodium (Coumadin) 5 mg PO 1800 [facility]; Protocol - Labs Labs: 05/17/18 06:30 05/17/18 06:30 PT 18.5 SECONDS (9.4-12.5) H 05/17/18 08:25 INR 1.59 05/17/18 08:25 APTT 35.8 Seconds (25.1-36.5) 05/17/18 08:25 Assessment and Plan - Assessment and Plan (Free Text) Assessment: Patient is a 67 M with a history of HTN, CAD s/p CABG, DM2, Afib(on warfarin), prosthetic MVR who presented to the ED for an episode of syncope, was admitted after witnessed episode of unresponiveness while at pharmacy store, admitted for further evaluation, and neurology workup. ITS Impressions Chest X-Ray 05/16/18 19:31 IMPRESSION: No active disease. Head CT 05/16/18 19:31 IMPRESSION: Normal CT of the Head. Plan: 1. CT read by neurologist with ischemic changes, repeat head CT and MRI pending, echo pending. 2. Syncope- Cardiology consult/eval pending. Check orthostatic vital signs. PT eval pending. Will continue to monitor clinical status and follow closely.
--- NOTE | 2018-05-17 15:59 | MRI ---
Date of service: 05/17/2018 PROCEDURE: MRI BRAIN WITHOUT CONTRAST HISTORY: stroke COMPARISON: 05/16/2018 TECHNIQUE: Multiplanar, multisequence MR images of the brain were obtained without intravenous contrast enhancement. FINDINGS: HEMORRHAGE: None DWI: No evidence of an acute or early subacute infarction. BRAIN PARENCHYMA: No mass effect or edema. 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 Evidence of chronic periventricular white matter ischemic disease. Probable tiny old infarct in the right cerebellum posteriorly. VENTRICLES: Unremarkable. No hydrocephalus. CRANIUM: Unremarkable. ORBITS: Grossly unremarkable. PARANASAL SINUSES/MASTOIDS: Clear VASCULAR SYSTEM: Skull base flow voids intact. OTHER FINDINGS: None. 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 Evidence of chronic periventricular white matter ischemic disease. Probable tiny old infarct in the right cerebellum posteriorly. Atrophic changes. No diffusion-weighted abnormality to suggest acute territorial infarct.
[2018-05-17] MEDS: Heparin25000 units/250ml 1/2NS 25,000 UNITS/250 ML BAG IV PRN (16:20)
--- NOTE | 2018-05-17 16:44 | CT ---
Date of service: 05/17/2018 PROCEDURE: CTA HEAD AND NECK WITH CONTRAST HISTORY: r/o stroke COMPARISON: None available. TECHNIQUE: Initial noncontrast head CT was performed. Subsequently, CT angiogram of the head and neck were performed after the intravenous administration of 80 mL of Omnipaque 350. Contiguous 1.5mm thick images were obtained in the axial plane of the neck. 2-D coronal and sagittal MPR images were obtained. Imaging postprocessing was performed with 3-D images also obtained. A delayed contrast head CT was also obtained. This CT exam was performed using one or more of the following dose reduction techniques: Automated exposure control, adjustment of the mA and/or kV according to patient size, and/or use of iterative reconstruction technique. Contrast dose: 100 mL Omnipaque 350 Radiation dose: Total exam DLP = 576.92 mGy-cm. FINDINGS: HEAD: Right: The intracranial internal carotid artery, and anterior and middle cerebral arteries are widely patent. Left: The intracranial internal carotid artery, and anterior and middle cerebral arteries are widely patent. Posterior circulation: The visualized intracranial vertebral arteries, basilar artery and posterior cerebral arteries are widely patent. There is no endoluminal filling defect to suggest thrombus. There is no intracranial saccular aneurysm. NECK: There is 2 vessel aortic arch with common origin of the innominate and left common carotid arteries. There is no stenosis at the origins of the great vessels at the level of the aortic arch. There are advanced atherosclerotic calcifications in the common carotid arteries, carotid bulbs and proximal internal carotid arteries, at the origin of the great vessels and left vertebral artery. Right Carotid: On the right, the common carotid, internal carotid and external carotid arteries are widely patent. There is no hemodynamically significant stenosis in the internal carotid artery by NASCET criteria. Left Carotid: On the left, the common carotid, internal carotid and external carotid arteries are widely patent. There is no hemodynamically significant stenosis in the internal carotid artery by NASCET criteria. The vertebral arteries are widely patent. The left vertebral artery is hypoplastic, an anatomic variant. The visualized soft tissues of the neck are normal. The visualized brain and cervical spine are within normal limits. Centrilobular emphysema in the visualized lungs. IMPRESSION: 1. No evidence of endoluminal thrombus,occlusion or definite significant stenosis in the intracranial arteries. 2. Extensive atherosclerotic vascular calcifications as described above. No evidence of hemodynamically significant stenosis in the internal carotid arteries. 3. Patent bilateral vertebral arteries.
--- NOTE | 2018-05-17 18:38 | CARD ---
APPROVED REPORT Date of service: 05/16/2018 EKG Measurement Heart [id number] <Conclusion> Atrial fibrillation with rapid ventricular response with premature ventricular complexes Nonspecific ST abnormality, probably digitalis effect Abnormal ECG
[2018-05-18 06:38] LABS: BASO # 0.01 K/mm3 (0.0-2.0); BASO % 0.1 % (0.0-3.0); EOS % 0.1 % (1.5-5.0); GRAN # 4.89 (1.4-6.5); GRAN % 71.4 % (50.0-68.0); HEMOGLOBIN 10.4 g/dL (14.0-18.0); MEAN CELL VOLUME 93.8 fl (80.0-105.0); MEAN CORPUSCULAR HEMOGLOBIN 29.1 pg (25.0-35.0); MEAN PLATELET VOLUME 11.1 fl (7.0-11.0); MONO # 0.9 (0.1-0.6); MONO % 13.4 % (1.0-6.0); RBC 3.57 10^6/uL (3.5-6.1); RED CELL DISTRIBUTION WIDTH 14.3 % (11.5-14.5); WHITE BLOOD COUNT 6.9 10^3/uL (4.5-11.0)
[2018-05-18] MEDS ORDERED: Vancomycin 2 GM in Sodium Chloride 0.9% 500 ML IVPB ONE (06:39)
[2018-05-18 06:45] LABS: INR 2.1; PARTIAL THROMBOPLASTIN TIME 77.4 Seconds (25.1-36.5); PROTHROMBIN TIME 24.5 SECONDS (9.4-12.5)
[2018-05-18 07:40] LABS: ALBUMIN 2.9 g/dL (3.0-4.8); ALT/SGPT 27 U/L (7-56); AST/SGOT 21 U/L (17-59); BLOOD UREA NITROGEN 21 mg/dL (7-21); CALCIUM 8.3 mg/dL (8.4-10.5); GFR NON-AFRICAN AMERICAN > 60
[2018-05-18] MEDS: Insulin Reg-LOW-Coverage SC SCH ×4 (08:00→22:32)
[2018-05-18] MEDS ORDERED: Magnesium Sulfate 2 gm/50 ml 2 GM/50 ML BAG IVPB ONE (08:11)
[2018-05-18] MEDS ORDERED: Potassium Chloride 20 mEq ER Tab PO STA (08:11)
[2018-05-18] MEDS ORDERED: Midazolam 2 MG/2 ML VIAL ONE (09:08)
[2018-05-18] MEDS ORDERED: Flumazenil 0.1 mg/ml Inj (5ml) IVP ONE (09:09)
[2018-05-18] MEDS ORDERED: Naloxone 0.4 mg/ml Inj (Adult) ONE (09:09)
[2018-05-18] MEDS ORDERED: Midazolam 2 MG/2 ML VIAL IV ONE (09:11)
[2018-05-18] MEDS ORDERED: Sodium Chloride 0.9% 1,000 ML IV SCH (09:45)
--- NOTE | 2018-05-18 10:52 | PN ---
DATE: 05/18/2018 REASON FOR CONSULTATION AND FOLLOWUP: Cardiac evaluation, history of coronary artery disease, atrial fibrillation, CABG admitted with a near syncope status post MVR mechanical. SUBJECTIVE: Patient denies any chest pain, shortness of breath, or any palpitation. OBJECTIVE GENERAL: Awake and not in apparent distress, lying flat in the bed. Patient is n.p.o. for TASHA this morning. VITAL SIGNS: As follows; temperature afebrile, heart rate 64, blood pressure 134/75. HEENT: PERRLA. Extraocular muscles intact. NECK: Supple. No carotid bruits or thyromegaly. CHEST: Clear to auscultation. HEART: S1 and S2, regular. ABDOMEN: Soft. EXTREMITIES: Clubbing and cyanosis negative. Telemetry shows atrial fibrillation, heart rate is 60. Blood pressure 134/75. LABORATORY DATA: Blood workup as follows; WBC 6.9, hemoglobin 10.4, hematocrit 33.5, and platelet count 249. Chemistry shows sodium 130, potassium 3.0, chloride 102, carbon dioxide 32, anion gap of 7, BUN 21, creatinine 1.2. INR 2.1. IMPRESSION: A 67-year-old male with past medical history of coronary artery disease status post chronic obstructive pulmonary disease 20 years ago status post mechanical mitral valve replacement (though patient states there is mechanical valve by echo). Yesterday, echo done suspicious of possible thrombus because of the mechanical, I could not visualize clearly. PLAN: The plan is send the blood culture, start empirically antibiotic and continue heparin because subtherapeutic. INR today is 2.1. We will do the TASHA this morning and then sometime afternoon we will discontinue the heparin, INR is creeping up, it is now 2.1, by afternoon would be around 2.5 or above. Further recommendation after the TASHA. Followup the blood culture. Patient has already got a gram of vancomycin and blood culture is still pending. We will follow with you. Thank you Dr. Zavala for providing us the opportunity in taking care of the patient, Shahab Cabrera. Further recommendation after the TASHA. Rosalio Rivera MD [facility] # [id number]
[2018-05-18] MEDS: Magnesium Oxide 400 mg Tab UD PO SCH (11:10)
--- NOTE | 2018-05-18 11:53 | CP.PCM.PCO ---
Physician Communication Note - Physician Communication Note Physician Communication Note: Pt recs TCU, once medically cleared, currently on Heparin gtt,TASHA +thrombus
--- NOTE | 2018-05-18 12:02 | CP.PCM.PN ---
Subjective - Date & Time of Evaluation Date of Evaluation: 05/18/18 Time of Evaluation: 12:01 Objective - Vital Signs/Intake and Output Vital Signs (last 24 hours): Temp Pulse Resp BP Pulse Ox 98.6 F 70 18 160/70 H 92 L 05/18/18 09:55 05/18/18 10:00 05/18/18 09:55 05/18/18 09:55 05/18/18 09:30 Intake and Output: 05/18/18 05/18/18 06:59 18:59 Intake Total 100 50 Balance 100 50 - Medications Medications: Current Medications Acetaminophen (Tylenol 650 Mg Supp) 650 mg RC Q4H PRN PRN Reason: Fever >100.4 F Last Admin: 05/17/18 13:46 Dose: 650 mg Aspirin (Aspirin Chewable) 81 mg PO DAILY [facility] Last Admin: 05/18/18 11:11 Dose: 81 mg Atorvastatin Calcium (Lipitor) 10 mg PO DIN [facility] Last Admin: 05/17/18 17:39 Dose: Not Given Furosemide (Lasix) 40 mg PO DAILY [facility] Last Admin: 05/17/18 10:00 Dose: Not Given Heparin Sodium/Sodium Chloride (Heparin 51734 Units/250ml 1/2 Normal Saline) 25,000 units in 250 mls @ 14.696 mls/hr IV .Q17H1M PRN; Protocol PRN Reason: ADJUST RATE PER PROTOCOL Last Titration: 05/18/18 00:15 Dose: 15 units/kg/hr, 12.247 mls/hr Potassium Chloride (Potassium Chloride 20 Meq/100 Ml) 20 meq in 100 mls @ 50 mls/hr IVPB Q2H [facility] Stop: 05/18/18 12:59 Last Admin: 05/18/18 11:11 Dose: 50 mls/hr Cefepime HCl (Maxipime 2gm) 2 gm in 100 mls @ 100 mls/hr IVPB Q12 [facility]; Protocol Stop: 05/23/18 11:31 Vancomycin HCl (Vancomycin 1gm) 1 gm in 250 mls @ 167 mls/hr IVPB Q12H [facility]; Protocol Insulin Human Regular (Humulin R Low) 0 units SC ACHS [facility]; Protocol Last Admin: 05/18/18 08:00 Dose: Not Given Levetiracetam (Keppra) 500 mg PO BID [facility] Last Admin: 05/18/18 11:10 Dose: 500 mg Losartan Potassium (Cozaar) 100 mg PO DAILY [facility] Last Admin: 05/18/18 11:09 Dose: 100 mg Magnesium Oxide (Mag-Ox) 400 mg PO DAILY [facility] Last Admin: 05/18/18 11:10 Dose: 400 mg Sertraline HCl (Zoloft) 50 mg PO DAILY [facility] Last Admin: 05/17/18 09:55 Dose: 50 mg Warfarin Sodium (Coumadin) 5 mg PO 1800 [facility]; Protocol Last Admin: 05/17/18 17:45 Dose: Not Given - Labs Labs: 05/18/18 06:00 05/18/18 06:00 PT 24.5 SECONDS (9.4-12.5) H 05/18/18 06:00 INR 2.10 05/18/18 06:00 APTT 77.4 Seconds (25.1-36.5) H 05/18/18 06:00
[2018-05-18] MEDS: Heparin25000 units/250ml 1/2NS 25,000 UNITS/250 ML BAG IV PRN (12:44)
--- NOTE | 2018-05-18 13:10 | CP.PCM.CON ---
<Morgan Costa - Last Filed: 05/18/18 13:00> History of Present Illness - History of Present Illness History of Present Illness: ID consult note 67 year old make with past medical history of HTN, CAD, CABG, DM2, A-fib on warfarin, and Mitral valve replacement presented to the hospital after a syncopal episode. Patient had waxing and waning level of orientation throughout interview, much of past medical history taken from prior medical records. Patient states he went to pick up attendant his meds from the pharmacy and as he was sitting he passed out. Patient admitted to poor oral intake. Patient was recently admitted to for UTI at [facility]. Patient admits to being noncompliant with medications recently. Denies chest pain, shortness of breath, nausea, vomiting, diarrhea, fever, chills, dysuria, numbness, tingling. Medical Hx: HTN, CAD, CABG, DM2, Afib Surgical Hx: CABG, prosthetiv mitral valve replacement Meds: Reviewed, as per MAR Allergies: NKDA Social Hx: Denies tobacco, alcohol, or illicit drug use Family Hx: non contributory Review of Systems - Review of Systems Review of Systems: 12 point ROS as per HPI, otherwise negative Past Patient History - Infectious Disease Hx of Infectious Diseases: None - Past Medical History & Family History Past Medical History?: Yes - Past Social History Smoking Status: Light Smoker < 10 Cigarettes Daily - CARDIAC Hx Cardiac Disorders: Yes (NH, CAD, MVP, A-fib, CABG) Hx Hypertension: Yes - PULMONARY Hx Respiratory Disorders: No Hx Tuberculosis: No - NEUROLOGICAL Hx Neurological Disorder: No - HEENT Hx HEENT Problems: Yes Hx Cataracts: Yes (cataraxt sx) Hx Glaucoma: Yes - RENAL Hx Chronic Kidney Disease: Yes Hx Renal Failure: Yes - ENDOCRINE/METABOLIC Hx Endocrine Disorders: Yes Hx Diabetes Mellitus Type 2: Yes - HEMATOLOGICAL/ONCOLOGICAL Hx Blood Disorders: Yes Hx Anemia: Yes - INTEGUMENTARY Hx Dermatological Problems: Yes - MUSCULOSKELETAL/RHEUMATOLOGICAL Hx Falls: Yes - GASTROINTESTINAL Hx Gastrointestinal Disorders: Yes Hx Diverticulitis: Yes - GENITOURINARY/GYNECOLOGICAL Hx Prostate Problems: Yes - PSYCHIATRIC Hx Psychophysiologic Disorder: Yes Hx Anxiety: Yes Hx Depression: Yes Hx Schizophrenia: Yes - SURGICAL HISTORY Hx Surgeries: Yes - ANESTHESIA Hx Anesthesia: Yes Hx Anesthesia Reactions: No Hx Malignant Hyperthermia: No Meds Allergies/Adverse Reactions: Allergies Allergy/AdvReac Type Severity Reaction Status Date / Time clams Allergy Intermediate NAUSEA Uncoded 11/28/17 10:24 - Medications Medications: Current Medications Acetaminophen (Tylenol 650 Mg Supp) 650 mg RC Q4H PRN PRN Reason: Fever >100.4 F Last Admin: 05/17/18 13:46 Dose: 650 mg Aspirin (Aspirin Chewable) 81 mg PO DAILY [facility] Last Admin: 05/18/18 11:11 Dose: 81 mg Atorvastatin Calcium (Lipitor) 10 mg PO DIN [facility] Last Admin: 05/17/18 17:39 Dose: Not Given Furosemide (Lasix) 40 mg PO DAILY [facility] Last Admin: 05/17/18 10:00 Dose: Not Given Heparin Sodium/Sodium Chloride (Heparin 38252 Units/250ml 1/2 Normal Saline) 25,000 units in 250 mls @ 14.696 mls/hr IV .Q17H1M PRN; Protocol PRN Reason: ADJUST RATE PER PROTOCOL Last Admin: 05/18/18 12:44 Dose: 15 units/kg/hr, 12.247 mls/hr Cefepime HCl (Maxipime 2gm) 2 gm in 100 mls @ 100 mls/hr IVPB Q12 [facility]; Protocol Stop: 05/23/18 11:31 Vancomycin HCl (Vancomycin 1gm) 1 gm in 250 mls @ 167 mls/hr IVPB Q12H [facility]; Protocol Insulin Human Regular (Humulin R Low) 0 units SC ACHS [facility]; Protocol Last Admin: 05/18/18 12:04 Dose: 1 unit Levetiracetam (Keppra) 500 mg PO BID [facility] Last Admin: 05/18/18 11:10 Dose: 500 mg Losartan Potassium (Cozaar) 100 mg PO DAILY [facility] Last Admin: 05/18/18 11:09 Dose: 100 mg Magnesium Oxide (Mag-Ox) 400 mg PO DAILY [facility] Last Admin: 05/18/18 11:10 Dose: 400 mg Sertraline HCl (Zoloft) 50 mg PO DAILY [facility] Last Admin: 05/18/18 12:43 Dose: 50 mg Warfarin Sodium (Coumadin) 5 mg PO 1800 [facility]; Protocol Last Admin: 05/17/18 17:45 Dose: Not Given Physical Exam - Constitutional Appears: Non-toxic, No Acute Distress - Head Exam Head Exam: ATRAUMATIC, NORMAL INSPECTION, NORMOCEPHALIC - Eye Exam Eye Exam: EOMI, Normal appearance - ENT Exam ENT Exam: Mucous Membranes Moist - Respiratory Exam Respiratory Exam: Clear to Auscultation Bilateral, NORMAL BREATHING PATTERN - Cardiovascular Exam Cardiovascular Exam: Irregular Rhythm, +S1, +S2 - GI/Abdominal Exam GI & Abdominal Exam: Normal Bowel Sounds, Soft. absent: Tenderness - Extremities Exam Extremities exam: Positive for: normal inspection. Negative for: pedal edema, tenderness - Neurological Exam Neurological exam: Alert, CN II-XII Intact - Psychiatric Exam Psychiatric exam: Normal Affect, Normal Mood Additional comments: Confused - Skin Skin Exam: Dry, Intact, Warm Results - Vital Signs Recent Vital Signs: Last Vital Signs Temp 98.6 F 05/18/18 09:55 Pulse 70 05/18/18 10:00 Resp 18 05/18/18 09:55 BP 160/70 H 05/18/18 09:55 Pulse Ox 92 L 05/18/18 09:30 - Labs Result Diagrams: 05/18/18 06:00 05/18/18 06:00 Labs: Laboratory Results - last 24 hr 05/17/18 05/17/18 05/17/18 15:30 16:29 21:27 WBC RBC Hgb Hct MCV MCH MCHC RDW Plt Count MPV Gran % Lymph % (Auto) [place] % (Auto) Eos % (Auto) Baso % (Auto) Gran # Lymph # (Auto) [place] # (Auto) Eos # (Auto) Baso # (Auto) PT INR APTT Sodium Potassium Chloride Carbon Dioxide Anion Gap BUN Creatinine Est GFR ( Amer) Est GFR (Non-Af Amer) POC Glucose (mg/dL) 200 H 149 H Random Glucose Calcium Magnesium Total Bilirubin AST ALT Alkaline Phosphatase Total Protein Albumin Globulin Albumin/Globulin Ratio Procalcitonin 0.09 L 05/17/18 05/18/18 05/18/18 22:35 06:00 06:00 WBC 6.9 D RBC 3.57 Hgb 10.4 L Hct 33.5 L MCV 93.8 MCH 29.1 MCHC 31.0 RDW 14.3 Plt Count 249 MPV 11.1 H Gran % 71.4 H Lymph % (Auto) 15.0 L [place] % (Auto) 13.4 H Eos % (Auto) 0.1 L Baso % (Auto) 0.1 Gran # 4.89 Lymph # (Auto) 1.0 L [place] # (Auto) 0.9 H Eos # (Auto) 0.0 Baso # (Auto) 0.01 PT INR APTT 107.0 H* Sodium 137 Potassium 3.2 L Chloride 102 Carbon Dioxide 32 Anion Gap 7 L BUN 21 Creatinine 1.0 Est GFR ( Amer) > 60 Est GFR (Non-Af Amer) > 60 POC Glucose (mg/dL) Random Glucose 159 H Calcium 8.3 L Magnesium 1.6 L Total Bilirubin 1.2 AST 21 ALT 27 Alkaline Phosphatase 107 Total Protein 5.8 Albumin 2.9 L Globulin 2.8 Albumin/Globulin Ratio 1.0 L Procalcitonin 05/18/18 05/18/18 05/18/18 06:00 07:47 11:44 WBC RBC Hgb Hct MCV MCH MCHC RDW Plt Count MPV Gran % Lymph % (Auto) [place] % (Auto) Eos % (Auto) Baso % (Auto) Gran # Lymph # (Auto) [place] # (Auto) Eos # (Auto) Baso # (Auto) PT 24.5 H INR 2.10 APTT 77.4 H Sodium Potassium Chloride Carbon Dioxide Anion Gap BUN Creatinine Est GFR ( Amer) Est GFR (Non-Af Amer) POC Glucose (mg/dL) 146 H 153 H Random Glucose Calcium Magnesium Total Bilirubin AST ALT Alkaline Phosphatase Total Protein Albumin Globulin Albumin/Globulin Ratio Procalcitonin 05/18/18 11:55 WBC RBC Hgb Hct MCV MCH MCHC RDW Plt Count MPV Gran % Lymph % (Auto) [place] % (Auto) Eos % (Auto) Baso % (Auto) Gran # Lymph # (Auto) [place] # (Auto) Eos # (Auto) Baso # (Auto) PT INR APTT 76.4 H Sodium Potassium Chloride Carbon Dioxide Anion Gap BUN Creatinine Est GFR ( Amer) Est GFR (Non-Af Amer) POC Glucose (mg/dL) Random Glucose Calcium Magnesium Total Bilirubin AST ALT Alkaline Phosphatase Total Protein Albumin Globulin Albumin/Globulin Ratio Procalcitonin Assessment & Plan - Assessment and Plan (Free Text) Plan: 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 Initial echocardiogram reviewed, will await final results from TASHA. Urine cultures negative at this time. Blood cultures are pending. Patient should continue on current medical regimen. Will make further recommendations as per results of TASHA. Igor, PGY-3 <Alcides Lafleur S - Last Filed: 05/18/18 13:28> Meds - Medications Medications: Current Medications Acetaminophen (Tylenol 650 Mg Supp) 650 mg RC Q4H PRN PRN Reason: Fever >100.4 F Last Admin: 05/17/18 13:46 Dose: 650 mg Aspirin (Aspirin Chewable) 81 mg PO DAILY [facility] Last Admin: 05/18/18 11:11 Dose: 81 mg Atorvastatin Calcium (Lipitor) 10 mg PO DIN [facility] Last Admin: 05/17/18 17:39 Dose: Not Given Furosemide (Lasix) 40 mg PO DAILY [facility] Last Admin: 05/18/18 13:20 Dose: 40 mg Heparin Sodium/Sodium Chloride (Heparin 38160 Units/250ml 1/2 Normal Saline) 25,000 units in 250 mls @ 14.696 mls/hr IV .Q17H1M PRN; Protocol PRN Reason: ADJUST RATE PER PROTOCOL Last Admin: 05/18/18 12:44 Dose: 15 units/kg/hr, 12.247 mls/hr Cefepime HCl (Maxipime 2gm) 2 gm in 100 mls @ 100 mls/hr IVPB Q12 [facility]; Protocol Stop: 05/23/18 11:31 Vancomycin HCl (Vancomycin 1gm) 1 gm in 250 mls @ 167 mls/hr IVPB Q12H [facility]; Protocol Insulin Human Regular (Humulin R Low) 0 units SC ACHS [facility]; Protocol Last Admin: 05/18/18 12:04 Dose: 1 unit Levetiracetam (Keppra) 500 mg PO BID [facility] Last Admin: 05/18/18 11:10 Dose: 500 mg Losartan Potassium (Cozaar) 100 mg PO DAILY [facility] Last Admin: 05/18/18 11:09 Dose: 100 mg Magnesium Oxide (Mag-Ox) 400 mg PO DAILY [facility] Last Admin: 05/18/18 11:10 Dose: 400 mg Sertraline HCl (Zoloft) 50 mg PO DAILY [facility] Last Admin: 05/18/18 12:43 Dose: 50 mg Warfarin Sodium (Coumadin) 5 mg PO 1800 [facility]; Protocol Last Admin: 05/17/18 17:45 Dose: Not Given Results - Vital Signs Recent Vital Signs: Last Vital Signs Temp 98.6 F 05/18/18 09:55 Pulse 70 05/18/18 10:00 Resp 18 05/18/18 09:55 BP 150/76 05/18/18 13:20 Pulse Ox 92 L 05/18/18 09:30 - Labs Result Diagrams: 05/18/18 06:00 05/18/18 06:00 Labs: Laboratory Results - last 24 hr 05/17/18 05/17/18 05/17/18 15:30 16:29 21:27 WBC RBC Hgb Hct MCV MCH MCHC RDW Plt Count MPV Gran % Lymph % (Auto) [place] % (Auto) Eos % (Auto) Baso % (Auto) Gran # Lymph # (Auto) [place] # (Auto) Eos # (Auto) Baso # (Auto) PT INR APTT Sodium Potassium Chloride Carbon Dioxide Anion Gap BUN Creatinine Est GFR ( Amer) Est GFR (Non-Af Amer) POC Glucose (mg/dL) 200 H 149 H Random Glucose Calcium Magnesium Total Bilirubin AST ALT Alkaline Phosphatase Total Protein Albumin Globulin Albumin/Globulin Ratio Procalcitonin 0.09 L 05/17/18 05/18/18 05/18/18 22:35 06:00 06:00 WBC 6.9 D RBC 3.57 Hgb 10.4 L Hct 33.5 L MCV 93.8 MCH 29.1 MCHC 31.0 RDW 14.3 Plt Count 249 MPV 11.1 H Gran % 71.4 H Lymph % (Auto) 15.0 L [place] % (Auto) 13.4 H Eos % (Auto) 0.1 L Baso % (Auto) 0.1 Gran # 4.89 Lymph # (Auto) 1.0 L [place] # (Auto) 0.9 H Eos # (Auto) 0.0 Baso # (Auto) 0.01 PT INR APTT 107.0 H* Sodium 137 Potassium 3.2 L Chloride 102 Carbon Dioxide 32 Anion Gap 7 L BUN 21 Creatinine 1.0 Est GFR ( Amer) > 60 Est GFR (Non-Af Amer) > 60 POC Glucose (mg/dL) Random Glucose 159 H Calcium 8.3 L Magnesium 1.6 L Total Bilirubin 1.2 AST 21 ALT 27 Alkaline Phosphatase 107 Total Protein 5.8 Albumin 2.9 L Globulin 2.8 Albumin/Globulin Ratio 1.0 L Procalcitonin 05/18/18 05/18/18 05/18/18 06:00 07:47 11:44 WBC RBC Hgb Hct MCV MCH MCHC RDW Plt Count MPV Gran % Lymph % (Auto) [place] % (Auto) Eos % (Auto) Baso % (Auto) Gran # Lymph # (Auto) [place] # (Auto) Eos # (Auto) Baso # (Auto) PT 24.5 H INR 2.10 APTT 77.4 H Sodium Potassium Chloride Carbon Dioxide Anion Gap BUN Creatinine Est GFR ( Amer) Est GFR (Non-Af Amer) POC Glucose (mg/dL) 146 H 153 H Random Glucose Calcium Magnesium Total Bilirubin AST ALT Alkaline Phosphatase Total Protein Albumin Globulin Albumin/Globulin Ratio Procalcitonin 05/18/18 11:55 WBC RBC Hgb Hct MCV MCH MCHC RDW Plt Count MPV Gran % Lymph % (Auto) [place] % (Auto) Eos % (Auto) Baso % (Auto) Gran # Lymph # (Auto) [place] # (Auto) Eos # (Auto) Baso # (Auto) PT INR APTT 76.4 H Sodium Potassium Chloride Carbon Dioxide Anion Gap BUN Creatinine Est GFR ( Amer) Est GFR (Non-Af Amer) POC Glucose (mg/dL) Random Glucose Calcium Magnesium Total Bilirubin AST ALT Alkaline Phosphatase Total Protein Albumin Globulin Albumin/Globulin Ratio Procalcitonin Assessment & Plan - Assessment and Plan (Free Text) Plan: Infectious diseases Attending Physician Attestation Patient seen and examined, discussed with medical pathology teacher. I have reviewed the patient's history of present illness, past medical, social, personal and family histories, pertinent physical exam findings, course so far in this hospital admission, pertinent laboratory and imaging results. I agree with the above findings, assessment and plan. In addition, patient has possible endocarditis based 3 minor Pink Criteria (predisposing condition with prosthetic mitral valve, fever, possible vegetation). Will start IV Vancomycin and Cefepime and will follow up blood cx, TASHA results. Will monitor clinically.
[2018-05-18] MEDS: Cefepime IV 2 gm in NS 2 GM/100 ML BAG IVPB SCH ×2 (14:17→22:31)
--- NOTE | 2018-05-18 14:43 | CP.PCM.PN ---
<Juanjo aZvala - Last Filed: 05/18/18 14:49> Subjective - Date & Time of Evaluation Date of Evaluation: 05/18/18 Time of Evaluation: 14:39 - Subjective Subjective: Juanjo Zavala DO PGY1 - Internal Medicine Outpatient Services Director - Medicine Progress Note Patient was seen and evaluated at bedside this afternoon after TASHA No acute events reported overnight Patient complaining only of headache this morning Does not voice complaints of chest pain, sob, abd pain, n/v/d/c, urinary discomfort. Denies fevers/chills upon exam this afternoon. Remainder of 12 system ROS is otherwise negative Objective - Vital Signs/Intake and Output Vital Signs (last 24 hours): Temp Pulse Resp BP Pulse Ox 98.1 F 78 17 150/76 92 L 05/18/18 12:00 05/18/18 12:00 05/18/18 12:00 05/18/18 13:20 05/18/18 09:30 Intake and Output: 05/18/18 05/18/18 06:59 18:59 Intake Total 100 200 Balance 100 200 - Medications Medications: Current Medications Acetaminophen (Tylenol 650 Mg Supp) 650 mg RC Q4H PRN PRN Reason: Fever >100.4 F Last Admin: 05/17/18 13:46 Dose: 650 mg Aspirin (Aspirin Chewable) 81 mg PO DAILY [facility] Last Admin: 05/18/18 11:11 Dose: 81 mg Atorvastatin Calcium (Lipitor) 10 mg PO DIN [facility] Last Admin: 05/17/18 17:39 Dose: Not Given Furosemide (Lasix) 40 mg PO DAILY [facility] Last Admin: 05/18/18 13:20 Dose: 40 mg Heparin Sodium/Sodium Chloride (Heparin 92752 Units/250ml 1/2 Normal Saline) 25,000 units in 250 mls @ 14.696 mls/hr IV .Q17H1M PRN; Protocol PRN Reason: ADJUST RATE PER PROTOCOL Last Admin: 05/18/18 12:44 Dose: 15 units/kg/hr, 12.247 mls/hr Cefepime HCl (Maxipime 2gm) 2 gm in 100 mls @ 100 mls/hr IVPB Q12 [facility]; Protocol Stop: 05/23/18 11:31 Last Admin: 05/18/18 14:17 Dose: 100 mls/hr Vancomycin HCl (Vancomycin 1gm) 1 gm in 250 mls @ 167 mls/hr IVPB Q12H [facility]; Protocol Insulin Human Regular (Humulin R Low) 0 units SC ACHS [facility]; Protocol Last Admin: 05/18/18 12:04 Dose: 1 unit Levetiracetam (Keppra) 500 mg PO BID [facility] Last Admin: 05/18/18 11:10 Dose: 500 mg Losartan Potassium (Cozaar) 100 mg PO DAILY [facility] Last Admin: 05/18/18 11:09 Dose: 100 mg Magnesium Oxide (Mag-Ox) 400 mg PO DAILY [facility] Last Admin: 05/18/18 11:10 Dose: 400 mg Sertraline HCl (Zoloft) 50 mg PO DAILY [facility] Last Admin: 05/18/18 12:43 Dose: 50 mg Warfarin Sodium (Coumadin) 5 mg PO 1800 [facility]; Protocol Last Admin: 05/17/18 17:45 Dose: Not Given - Labs Labs: 05/18/18 06:00 05/18/18 06:00 PT 24.5 SECONDS (9.4-12.5) H 05/18/18 06:00 INR 2.10 05/18/18 06:00 APTT 76.4 Seconds (25.1-36.5) H 05/18/18 11:55 - Constitutional Appears: Well, Non-toxic - Head Exam Head Exam: ATRAUMATIC, NORMOCEPHALIC - Eye Exam Eye Exam: EOMI, Normal appearance, PERRL - ENT Exam ENT Exam: Mucous Membranes Moist Additional comments: poor dentition - Respiratory Exam Respiratory Exam: Clear to Ausculation Bilateral, NORMAL BREATHING PATTERN - Cardiovascular Exam Additional comments: Irregular x Irregular rate and rhythm Click appreciated at LSB - GI/Abdominal Exam GI & Abdominal Exam: Soft, Normal Bowel Sounds. absent: Tenderness - Extremities Exam Additional comments: 1+ Pulses PT/DP BL - Neurological Exam Neurological Exam: Alert, Awake, CN II-XII Intact, Oriented x3 Neuro motor strength exam: Left Upper Extremity: 5, Right Upper Extremity: 5 (RUE strength is relatively diminished compared to LUE ), Left Lower Extremity: 5, Right Lower Extremity: 5 - Psychiatric Exam Psychiatric exam: Normal Affect, Normal Mood - Skin Skin Exam: Dry, Intact, Normal Color, Warm Assessment and Plan - Assessment and Plan (Free Text) Assessment: This patient is a 67M w/ a PMH of CAD s/p CABG, Mechanical Valve replacement, Afib (AC w/ warfarin), COPD, and HTN; presented to [facility] on 05/17 immediately post syncopal episode. Patient was subsequently admitted for work up of syncopal episode and found to have septic vegetation vs. thrombus on mechanical valve. PLAN: Echogenic Mobile Structure - Septic Vegetation vs Thrombus - As per conversation w/ cardiology, Results from TASHA on 05/18 are more suggestive of thrombus - Will anticoagulate w/ heparin at this time (Heparin to Warfarin bridge) - Will continue w/ warfarin 5mg QD at this time until INR is 3-3.5 - Will c/w Vanc + Cef as patient has 3 minor jeong criteria for endocarditis as per ID Abx Day 2 - Patient has been afebrile overnight; Previously febrile on 05/17 afternoon. - Acetaminophen 650mg RC PRN fever - Pending 05/17 and 05/18 BCx at this time - ID Following, Appreciate Reccs - Cardiology Following, Appreciate reccs Syncopal Episode: Cardiac Etiologies vs. Neurologic Etiologies vs. Autonomic Dysfunction; Uncontrolled Afib w/ RVR more likely etiology Afib w/ RVR vs CVA vs Orthostatic Hypotension vs Vasovagal syncope - Per conversation w/ the patient, it appears he has been largely noncompliant w/ his medications. Hence Syncopal episode could be worsening of his chronic conditions; however given his history of CVA, new onset CVA must be ruled out. - Patient is reporting hisotry of prior CVA, findings confirmed by reviewing CT Head in 2017; Does not appear to be on ASA at home - 05/17 - CT Head: no ICH. Encephalomalacia involving right parietal lobe, compatible with an old infarct - 05/18 - MRI Head: Redemonstration of an old right parietal infarct with cystic encephalomalacia. Evidence of chronic periventricular white matter ischemic disease. Probable tiny old infarct in the right cerebellum posteriorly. Atrophi c changes. No diffusion-weighted abnormality to suggest acute territorial infarct. - 05/17 - Patent vertebral arteries bilaterally; No HD significant stenosis of internal carotid arteries, No thrombus identified within intracranial - 05/18 - TTE - LVEF 60-65%, Trace MR, Mechanical mitral valve, mild-mod TR, Echogenic mobile structure noted in [place], not very clear, thrombus vs vegetation - Upon admission EKG was interpreted as Afib w/ RVR; QTc 502 - PT Eval Treat: Will require skilled PT 3-5x/week for x1 week - TCU - C/w telemtry monitoring - Can check orthostatics however results may be skewed due to patient receiving IVF - Neuro Following, Appreciate recs Hx HTN: - Can continue managing BP as normal; No need for permissive HTN at this time - Continue home med cozaar 100mg qd Hx DM: - Hgb A1C 8.8 - ISS-low ACHS - Accuchecks ACHS Hx CVA: - C/w ASA 81 qd - C/w Lipitor 10 qd HypoKalemia - Repleted today - Recheck in AM HypoMag - Repleted today - May need standing MagOx order; has required repletion QD Hx anxiety: - C/w home med clonopin, zoloft Prophylaxis: -DVT ppx: Heparin Drip + Warfarin -GI ppx: Protonix DISPO: Patient will be discharged to TCU/ [facility] once medically optimized for improvement of deficits and to facilitate [place] with functional mobility Patient was seen, examined, and discussed w/ attending physician Dr. Lisa Zavala DO PGY1 Internal Medicine Outpatient Services Director - Medicine Progress Note <Lisa Zavala R - Last Filed: 05/20/18 11:19> Objective - Vital Signs/Intake and Output Vital Signs (last 24 hours): Temp Pulse Resp BP Pulse Ox 97.6 F 66 18 140/65 98 05/20/18 06:00 05/20/18 06:00 05/20/18 06:00 05/20/18 09:49 05/20/18 06:00 Intake and Output: 05/20/18 05/20/18 06:59 18:59 Intake Total 1154 262 Output Total 2 Balance 1152 262 - Medications Medications: Current Medications Acetaminophen (Tylenol 325mg Tab) 650 mg PO Q6H PRN PRN Reason: Headache Last Admin: 05/18/18 17:26 Dose: 650 mg Aspirin (Aspirin Chewable) 81 mg PO DAILY [facility] Last Admin: 05/20/18 09:49 Dose: 81 mg Atorvastatin Calcium (Lipitor) 10 mg PO DIN [facility] Last Admin: 05/19/18 17:29 Dose: 10 mg Furosemide (Lasix) 40 mg PO DAILY [facility] Last Admin: 05/20/18 09:49 Dose: 40 mg Heparin Sodium/Sodium Chloride (Heparin 69222 Units/250ml 1/2 Normal Saline) 25,000 units in 250 mls @ 14.696 mls/hr IV .Q17H1M PRN; Protocol PRN Reason: ADJUST RATE PER PROTOCOL Last Titration: 05/20/18 08:35 Dose: 12 units/kg/hr, 9.798 mls/hr Cefepime HCl (Maxipime 2gm) 2 gm in 100 mls @ 100 mls/hr IVPB Q12 [facility]; Protocol Stop: 05/23/18 11:31 Last Admin: 05/20/18 09:50 Dose: 100 mls/hr Vancomycin HCl (Vancomycin 1gm) 1 gm in 250 mls @ 167 mls/hr IVPB Q12H [facility]; Protocol Last Admin: 05/19/18 22:43 Dose: 167 mls/hr Insulin Human Regular (Humulin R Low) 0 units SC ACHS [facility]; Protocol Last Admin: 05/20/18 08:12 Dose: 2 units Levetiracetam (Keppra) 500 mg PO BID [facility] Last Admin: 05/20/18 09:49 Dose: 500 mg Losartan Potassium (Cozaar) 100 mg PO DAILY [facility] Last Admin: 05/20/18 09:49 Dose: 100 mg Magnesium Oxide (Mag-Ox) 400 mg PO DAILY [facility] Last Admin: 05/20/18 09:49 Dose: 400 mg Sertraline HCl (Zoloft) 50 mg PO DAILY [facility] Last Admin: 05/20/18 09:49 Dose: 50 mg Warfarin Sodium (Coumadin) 6 mg PO 1800 [facility]; Protocol Warfarin Sodium (Coumadin) 10 mg PO 1800 [facility]; Protocol Stop: 05/20/18 12:01 - Labs Labs: 05/20/18 07:00 05/20/18 07:00 PT 26.0 SECONDS (9.4-12.5) H 05/20/18 07:00 INR 2.22 05/20/18 07:00 APTT 109.7 Seconds (25.1-36.5) H* 05/20/18 07:00 Attending/Attestation - Attestation I have personally seen and examined this patient.: Yes I have fully participated in the care of the patient.: Yes I have reviewed all pertinent clinical information, including history, physical exam and plan: Yes Notes (Text): Patient seen and examined by me with resident at 2PM on 05/18/18. Case including HPI, physical exam, and assessment and plan discussed with resident. Agree with above with following additions/corrections. Patient is a 67-year-old male past medical history significant for hypertension, CAD s/p CABG, DM2, atrial fibrillation on Coumadin, and mechanical mitral valve replacement that presented to the emergency room with syncope. Patient states he is feeling much better today than yesterday. Patient denies any chest pain. No shortness of breath or palpitations. No nausea, vomiting, or abdominal pain. No headaches or dizziness. No lightheadedness. No fevers or chills. No dysuria. Physical exam: General: Awake and alert lying in bed in no acute distress HEENT: Normocephalic, atraumatic. Extraocular muscles intact, pupils equal and reactive, no scleral icterus. Oropharynx is pink and moist. No pharyngeal erythema or exudate appreciated.Neck is supple. Cardiovascular: Regular rhythm. Normal S1 and S2. Positive click. No rubs or gallops appreciated. Pulmonary: Normal respiratory effort. No rhonchi, rales, or wheezing appreciated. Gastrointestinal: Soft, nondistended. Nontender. Positive bowel sounds all 4 q uadrants. No guarding. Musculoskeletal: Moves all extremities. No calf tenderness. No edema apprec iated. Central nervous system: AAO x3, CN 2-12 grossly intact Dermatologic: Skin warm and dry. Assessment and plan: Patient is a 67-year-old male past medical history significant for hypertension, CAD s/p CABG, DM2, atrial fibrillation on Coumadin, and mechanical mitral valve replacement that presented to the emergency room with syncope. 1. Syncope. History of CVA. Likely cardiac etiology. Neurology following, recommendations appreciated. Cardiology following, recommendations appreciated. Head CT per radiologist shows normal head CT. Brain MRI per radiologist showed redemonstration of an old right parietal infarct with cystic encephalomalacia, evidence of chronic periventricular white matter ischemia disease, probable tiny old infarct in the right cerebellum posteriorly, atrophic changes. Head/Neck CTA per radiologist showed no evidence of endoluminal thrombus, occlusion or definite significant stenosis in the intracranial arteries; extensive atherosclerotic vascular calcifications; no evidence of hemodynamically significant stenosis in the internal carotid arteries; patent bilateral vertebral arteries. 2D echo per air sampler showed left atrium moderately dilated, right atrium dilated, EF 60-65%, systolic function mild to moderately reduced, mechanical mitral valve, echogenic mobile structure noted in [place]. Patient s/p TASHA today. Per air sampler, patient with thrombus. Continue ASA and Lipitor. 2. Left atrial thrombus. Seen on TASHA today per Dr. Rivera. Per Dr. Rivera, continue heparin drip for 24 hours. Continue Coumadin. INR goal 3 to 3.5 3. S/P mechanical mitral valve replacement. Continue Coumadin. INR goal 3 to 3.5. 4. Medication noncompliance. Discussed importance of taking medications daily as prescribed to patient at length. 5. Atrial fibrillation. Continue Coumadin. Rate controlled. Cardiology following, recommendations appreciated. 6. Fever. ID following, recommendations appreciated. Pending blood cultures. Leukocytosis resolved. Procalcitonin 0.09. Continue Cefepime and vancomycin 7. CAD s/p CABG. Continue ASA and lipitor. Continue Cozaar. Cardiology following, recommendations appreciated. 2D echo as above 8. History of seizures. Continue Keppra 500mg PO BID. 9. Hypertension. Continue Cozaar and Lasix 10. DM2. Continue Insulin sliding scale. Hgb A1C 8.8. Continue to monitor accuchecks. Diabetic education. 11. Depression. Continue Zoloft. 12. DVT/GI propbylaxis. Heparin drip/Protonix 13. Patient is a full code. Case was discussed in detail with the patient regarding current diagnosis and treatment plan. All questions answered.
--- NOTE | 2018-05-18 15:28 | CP.PCM.PN ---
<Arnulfo Goode - Last Filed: 05/18/18 15:33> Subjective - Date & Time of Evaluation Date of Evaluation: 05/18/18 Time of Evaluation: 10:00 - Subjective Subjective: Patient seen and examined at bedside in no acute distress talking and following commands. Patient states he had no issues overnight. Objective - Vital Signs/Intake and Output Vital Signs (last 24 hours): Temp Pulse Resp BP Pulse Ox 98.1 F 78 17 150/76 92 L 05/18/18 12:00 05/18/18 12:00 05/18/18 12:00 05/18/18 13:20 05/18/18 09:30 Intake and Output: 05/18/18 05/18/18 06:59 18:59 Intake Total 100 200 Balance 100 200 - Medications Medications: Current Medications Acetaminophen (Tylenol 650 Mg Supp) 650 mg RC Q4H PRN PRN Reason: Fever >100.4 F Last Admin: 05/17/18 13:46 Dose: 650 mg Aspirin (Aspirin Chewable) 81 mg PO DAILY [facility] Last Admin: 05/18/18 11:11 Dose: 81 mg Atorvastatin Calcium (Lipitor) 10 mg PO DIN [facility] Last Admin: 05/17/18 17:39 Dose: Not Given Furosemide (Lasix) 40 mg PO DAILY [facility] Last Admin: 05/18/18 13:20 Dose: 40 mg Heparin Sodium/Sodium Chloride (Heparin 96152 Units/250ml 1/2 Normal Saline) 25,000 units in 250 mls @ 14.696 mls/hr IV .Q17H1M PRN; Protocol PRN Reason: ADJUST RATE PER PROTOCOL Last Admin: 05/18/18 12:44 Dose: 15 units/kg/hr, 12.247 mls/hr Cefepime HCl (Maxipime 2gm) 2 gm in 100 mls @ 100 mls/hr IVPB Q12 [facility]; Protocol Stop: 05/23/18 11:31 Last Admin: 05/18/18 14:17 Dose: 100 mls/hr Vancomycin HCl (Vancomycin 1gm) 1 gm in 250 mls @ 167 mls/hr IVPB Q12H [facility]; Protocol Insulin Human Regular (Humulin R Low) 0 units SC ACHS [facility]; Protocol Last Admin: 05/18/18 12:04 Dose: 1 unit Levetiracetam (Keppra) 500 mg PO BID [facility] Last Admin: 05/18/18 11:10 Dose: 500 mg Losartan Potassium (Cozaar) 100 mg PO DAILY [facility] Last Admin: 05/18/18 11:09 Dose: 100 mg Magnesium Oxide (Mag-Ox) 400 mg PO DAILY [facility] Last Admin: 05/18/18 11:10 Dose: 400 mg Sertraline HCl (Zoloft) 50 mg PO DAILY [facility] Last Admin: 05/18/18 12:43 Dose: 50 mg Warfarin Sodium (Coumadin) 5 mg PO 1800 [facility]; Protocol Last Admin: 05/17/18 17:45 Dose: Not Given - Labs Labs: 05/18/18 06:00 05/18/18 06:00 PT 24.5 SECONDS (9.4-12.5) H 05/18/18 06:00 INR 2.10 05/18/18 06:00 APTT 76.4 Seconds (25.1-36.5) H 05/18/18 11:55 - Constitutional Appears: Non-toxic, No Acute Distress - Head Exam Head Exam: ATRAUMATIC, NORMAL INSPECTION, NORMOCEPHALIC - ENT Exam Additional comments: poor dentation - Neck Exam Neck Exam: Full ROM - Respiratory Exam Respiratory Exam: Clear to Ausculation Bilateral, NORMAL BREATHING PATTERN - Cardiovascular Exam Cardiovascular Exam: Irregular Rhythm, +S1, +S2 - GI/Abdominal Exam GI & Abdominal Exam: Soft, Normal Bowel Sounds - Neurological Exam Neurological Exam: Alert, Awake, Oriented x3 Neuro motor strength exam: Left Upper Extremity: 3, Right Upper Extremity: 4, Left Lower Extremity: 3, Right Lower Extremity: 4 - Psychiatric Exam Psychiatric exam: Normal Affect, Normal Mood - Skin Skin Exam: Normal Color Additional comments: stasis dermatitis in lower legs bilaterally Assessment and Plan - Assessment and Plan (Free Text) Assessment: -MRI Brain reveals no acute changes. Makes mention of previous stroke. -CTA head and neck reveals patent b/l vertebral arteries, no evidence of hemodynamically unstable stenosis of internal carotid arteries, however there is extensive atherosclerotic vascular calcifications, no evidence of endoluminal thrombus -Follow up TASHA <Munguia,Gautami - Last Filed: 05/18/18 20:41> Objective - Vital Signs/Intake and Output Vital Signs (last 24 hours): Temp Pulse Resp BP Pulse Ox 97.9 F 68 16 171/73 H 99 05/18/18 18:00 05/18/18 19:00 05/18/18 18:00 05/18/18 19:00 05/18/18 18:00 Intake and Output: 05/18/18 05/19/18 18:59 06:59 Intake Total 700 Balance 700 - Medications Medications: Current Medications Acetaminophen (Tylenol 325mg Tab) 650 mg PO Q6H PRN PRN Reason: Headache Last Admin: 05/18/18 17:26 Dose: 650 mg Aspirin (Aspirin Chewable) 81 mg PO DAILY [facility] Last Admin: 05/18/18 11:11 Dose: 81 mg Atorvastatin Calcium (Lipitor) 10 mg PO DIN [facility] Last Admin: 05/18/18 17:27 Dose: 10 mg Furosemide (Lasix) 40 mg PO DAILY [facility] Last Admin: 05/18/18 13:20 Dose: 40 mg Heparin Sodium/Sodium Chloride (Heparin 04630 Units/250ml 1/2 Normal Saline) 25,000 units in 250 mls @ 14.696 mls/hr IV .Q17H1M PRN; Protocol PRN Reason: ADJUST RATE PER PROTOCOL Last Admin: 05/18/18 12:44 Dose: 15 units/kg/hr, 12.247 mls/hr Cefepime HCl (Maxipime 2gm) 2 gm in 100 mls @ 100 mls/hr IVPB Q12 [facility]; Protocol Stop: 05/23/18 11:31 Last Admin: 05/18/18 14:17 Dose: 100 mls/hr Vancomycin HCl (Vancomycin 1gm) 1 gm in 250 mls @ 167 mls/hr IVPB Q12H [facility]; Protocol Last Admin: 05/18/18 15:55 Dose: 167 mls/hr Insulin Human Regular (Humulin R Low) 0 units SC ACHS [facility]; Protocol Last Admin: 05/18/18 17:26 Dose: 1 unit Levetiracetam (Keppra) 500 mg PO BID [facility] Last Admin: 05/18/18 17:27 Dose: 500 mg Losartan Potassium (Cozaar) 100 mg PO DAILY [facility] Last Admin: 05/18/18 11:09 Dose: 100 mg Magnesium Oxide (Mag-Ox) 400 mg PO DAILY [facility] Last Admin: 05/18/18 11:10 Dose: 400 mg Sertraline HCl (Zoloft) 50 mg PO DAILY [facility] Last Admin: 05/18/18 12:43 Dose: 50 mg Warfarin Sodium (Coumadin) 5 mg PO 1800 [facility]; Protocol Last Admin: 05/18/18 17:26 Dose: 5 mg - Labs Labs: 05/18/18 06:00 05/18/18 06:00 PT 24.5 SECONDS (9.4-12.5) H 05/18/18 06:00 INR 2.10 05/18/18 06:00 APTT 76.4 Seconds (25.1-36.5) H 05/18/18 11:55 Assessment and Plan - Assessment and Plan (Free Text) Assessment: i examined the patient with the resident and fomulated the assessment and plan. Dr. munguia
[2018-05-18] MEDS: Vancomycin 1gm in NS 250ml 1 GM/250 ML BAG IVPB SCH ×2 (15:55→22:31)
--- NOTE | 2018-05-18 16:02 | CARD ---
APPROVED REPORT Date of service: 05/18/2018 EXAM: Transesophageal echocardiogram with color flow Doppler. INDICATION Thrombus Reason For Test : Rule out Intracardiac Thrombus. PROCEDURE After obtaining informed consent, patient underwent transesophageal echo in the Echo Lab. Type of Sedation : Conscious Sedation Sedation was administered by Dr. cabrera. Sedation was achieved with Versed and Fentanyl 1 mg and 50 mcg intravenously. Transesophageal probe was inserted and advanced into esophagus without difficulty. Echo enhancement indication: R/O Septal defect. Echo enhancement agent administered: Agitated Saline The TASHA was performed without complications. Throughout the procedure, the blood pressure, pulse oximetry, cardiac rhythm, and rate were monitored. The patient tolerated the procedure without adverse effects. Recovery from conscious sedation was uneventful and vital signs were stable. Cardioversion not attempted, Hx of Ch. a fib/ MVR on Coumadin. LEFT VENTRICLE The left ventricle is normal size. There is borderline to mild left ventricular hypertrophy. The left ventricular function is normal.EF-60-65% There is normal LV segmental wall motion. Diastolic Fx could not be assessd , pt is on A fib at that time No left ventricle thrombus noted on this study. There is no ventricular septal defect visualized. There is no left ventricular aneurysm. There is no mass noted in the left ventricle. RIGHT VENTRICLE The right ventricle is mildly dilated. There is normal right ventricular wall thickness. Systolic function is mildly to moderately reduced. ATRIA The left atrium is moderately dilated. The right atrium is mildly dilated. The interatrial septum is intact with no evidence for an atrial septal defect. AORTIC VALVE The aortic valve is moderately thickened. Trivial AR There is no aortic valvular stenosis. There is no aortic valvular vegetation. MITRAL VALVE Mitral regurgitation is mild to moderate. Multiple Echogenic Structure attached to Leaflets of Mechanical Mitral valves ( both leaflets) less mobile towards Ventricular surface , largest Being 1.3/2,9 cm with multiple jets of Mild to Moderate MR, C/w possible trombus. TRICUSPID VALVE The tricuspid valve leaflets display thickening. There is mild to moderate tricuspid regurgitation. There is no tricuspid valve prolapse or vegetation. There is no tricuspid valve stenosis. PULMONIC VALVE The pulmonary valve is normal in structure. There is trace pulmonic valvular regurgitation. There is no pulmonic valvular stenosis. GREAT VESSELS The aortic root is normal in size. The ascending aorta is normal in size. The pulmonary artery is normal. The IVC is normal in size and collapses >50% with inspiration. <Conclusion> The left ventricular function is normal.EF-60-65% Trivial AR Mitral regurgitation is mild to moderate. Multiple Echogenic Structure attached to Leaflets of Mechanical Mitral valves ( both leaflets) less mobile towards Ventricular surface , largest Being 1.3/2,9 cm with multiple jets of Mild to Moderate MR, C/w possible trombus. There is mild to moderate tricuspid regurgitation. Velocity in [place] less than 0.4 m/s. Minimal flat Plaque in descending aorta noted. Off note; admitting INR was 1.31, so above TASHA/ TTE findings C/w thrombus and less likely Vegetation, Co relate clinically.
--- NOTE | 2018-05-18 19:08 | PN ---
DATE: 05/18/2018 SUBJECTIVE: The patient underwent TASHA. This note is in addition to dictated by this morning. TASHA showed mechanical mitral prosthesis, multiple thrombi noted attached to the mitral valve prosthesis, the largest being 1.3 x 2.86, most likely consistent with thrombus, at least three thrombus noted. RECOMMENDATIONS: At this point, we will continue IV heparin. The patient came in with INR subtherapeutic 1.31. He was started with Coumadin now, today his INR is 2.1. The patient is also getting IV heparin as a bridge. PLAN: At this point, recommendation is to continue IV heparin until the INR get therapeutic between 3 and 3.5 because it is a mechanical valve and the patient had thrombus. Also follow with blood culture, the patient was started broad-spectrum antibiotic as well. Follow up blood culture, but most likely it is thrombus clinically and we will continue Coumadin. Goal is to keep INR between 3 and 3.5, today INR is 2.1. Probably continue for 24 hours IV heparin. to the patient, the patient should not stop Coumadin and continue PT/INR upon discharge with Dr. Tino Ramirez. Thank you Dr. Zavala for providing us the opportunity in taking care of the patient, Rick Gudino. Rosalio Rivera MD
[2018-05-19 08:13] LABS: ALB/GLOB RATIO 1.1 (1.1-1.8); ALBUMIN 2.9 g/dL (3.0-4.8); ALT/SGPT 24 U/L (7-56); AST/SGOT 14 U/L (17-59); BASO # 0.01 K/mm3 (0.0-2.0); BASO % 0.2 % (0.0-3.0); BLOOD UREA NITROGEN 20 mg/dL (7-21); CALCIUM 8.2 mg/dL (8.4-10.5); EOS # 0.1 (0.0-0.7); EOS % 2.3 % (1.5-5.0); GFR NON-AFRICAN AMERICAN > 60; GRAN # 2.9 (1.4-6.5); GRAN % 65.9 % (50.0-68.0); HEMOGLOBIN 9.9 g/dL (14.0-18.0); LYMPH # 0.8 (1.2-3.4); LYMPH % 18.9 % (22.0-35.0); MEAN CELL VOLUME 93.9 fl (80.0-105.0); MEAN CORPUSCULAR HEMOGLOBIN 28.8 pg (25.0-35.0); MEAN CORPUSCULAR HGB CONC 30.7 g/dl (31.0-37.0); MEAN PLATELET VOLUME 11.4 fl (7.0-11.0); MONO # 0.6 (0.1-0.6); MONO % 12.7 % (1.0-6.0); RBC 3.44 10^6/uL (3.5-6.1); RED CELL DISTRIBUTION WIDTH 14.1 % (11.5-14.5); WHITE BLOOD COUNT 4.4 10^3/uL (4.5-11.0)
[2018-05-19] MEDS: Insulin Reg-LOW-Coverage SC SCH ×4 (08:29→21:42)
[2018-05-19 08:50] LABS: INR 2.11; PROTHROMBIN TIME 24.6 SECONDS (9.4-12.5)
[2018-05-19] MEDS: Magnesium Oxide 400 mg Tab UD PO SCH (09:29)
[2018-05-19] MEDS: Cefepime IV 2 gm in NS 2 GM/100 ML BAG IVPB SCH ×2 (09:30→21:35)
--- NOTE | 2018-05-19 09:40 | CP.PCM.PN ---
Subjective - Date & Time of Evaluation Date of Evaluation: 05/19/18 Time of Evaluation: 06:40 - Subjective Subjective: Awake, alert, no distress Reason for consultation and follow up: Cardiac evaluation admitted due to syncopal episode,history of coronary artery disease post CABG, atrial fibrillation, post mechanical mitral valve replacement. Seen and examined by me and Dr. Rivera Objective - Vital Signs/Intake and Output Vital Signs (last 24 hours): Temp Pulse Resp BP Pulse Ox 98.2 F 77 20 144/71 96 05/19/18 06:00 05/19/18 06:00 05/19/18 06:00 05/19/18 09:29 05/19/18 06:00 Intake and Output: 05/19/18 05/19/18 06:59 18:59 Intake Total 1046 746 Balance 1046 746 - Medications Medications: Current Medications Acetaminophen (Tylenol 325mg Tab) 650 mg PO Q6H PRN PRN Reason: Headache Last Admin: 05/18/18 17:26 Dose: 650 mg Aspirin (Aspirin Chewable) 81 mg PO DAILY [facility] Last Admin: 05/19/18 09:29 Dose: 81 mg Atorvastatin Calcium (Lipitor) 10 mg PO DIN [facility] Last Admin: 05/18/18 17:27 Dose: 10 mg Furosemide (Lasix) 40 mg PO DAILY [facility] Last Admin: 05/19/18 09:29 Dose: 40 mg Heparin Sodium/Sodium Chloride (Heparin 93576 Units/250ml 1/2 Normal Saline) 25,000 units in 250 mls @ 14.696 mls/hr IV .Q17H1M PRN; Protocol PRN Reason: ADJUST RATE PER PROTOCOL Last Admin: 05/18/18 12:44 Dose: 15 units/kg/hr, 12.247 mls/hr Cefepime HCl (Maxipime 2gm) 2 gm in 100 mls @ 100 mls/hr IVPB Q12 [facility]; Protocol Stop: 05/23/18 11:31 Last Admin: 05/19/18 09:30 Dose: 100 mls/hr Vancomycin HCl (Vancomycin 1gm) 1 gm in 250 mls @ 167 mls/hr IVPB Q12H [facility]; Protocol Last Admin: 05/18/18 22:31 Dose: 167 mls/hr Insulin Human Regular (Humulin R Low) 0 units SC ACHS [facility]; Protocol Last Admin: 05/19/18 08:29 Dose: 1 unit Levetiracetam (Keppra) 500 mg PO BID [facility] Last Admin: 05/19/18 09:29 Dose: 500 mg Losartan Potassium (Cozaar) 100 mg PO DAILY [facility] Last Admin: 05/19/18 09:29 Dose: 100 mg Magnesium Oxide (Mag-Ox) 400 mg PO DAILY [facility] Last Admin: 05/19/18 09:29 Dose: 400 mg Sertraline HCl (Zoloft) 50 mg PO DAILY [facility] Last Admin: 05/19/18 09:30 Dose: 50 mg Warfarin Sodium (Coumadin) 5 mg PO 1800 [facility]; Protocol Last Admin: 05/18/18 17:26 Dose: 5 mg - Labs Labs: 05/19/18 07:30 05/19/18 07:30 PT 24.6 SECONDS (9.4-12.5) H 05/19/18 08:20 INR 2.11 05/19/18 08:20 APTT 76.4 Seconds (25.1-36.5) H 05/18/18 11:55 - Constitutional Appears: Non-toxic, No Acute Distress - Head Exam Head Exam: NORMAL INSPECTION, NORMOCEPHALIC - Eye Exam Eye Exam: Normal appearance Pupil Exam: NORMAL ACCOMODATION - ENT Exam ENT Exam: Mucous Membranes Moist, Normal Exam - Respiratory Exam Respiratory Exam: Clear to Ausculation Bilateral, NORMAL BREATHING PATTERN - Cardiovascular Exam Cardiovascular Exam: +S1, +S2 - GI/Abdominal Exam GI & Abdominal Exam: Soft, Normal Bowel Sounds - Extremities Exam Extremities Exam: Full ROM, Normal Capillary Refill - Neurological Exam Neurological Exam: Alert, Awake, Oriented x3 - Psychiatric Exam Psychiatric exam: Normal Affect, Normal Mood - Skin Skin Exam: Dry, Normal Color, Warm Assessment and Plan - Assessment and Plan (Free Text) Assessment: A 67 year old male who came in to the ER due to episode of syncope. History of HTN, CAD s/p CABG, DM2, Afib(on warfarin), prosthetic MVR, COPD. Echo done and suspicious of thrombus thus TASHA was scheduled. TASHA showed mechanical mitral prosthesis,multiple thrombi noted attached to the mitral valve prosthesis, at least three thrombus noted. On IV heparin. On Coumadin. Plan: Denies chest pain, denies shortness of breath Continue IV heparin as bridge until INR therapuetic On Coumadin, Latest INR 2.11, To maintain INR of 3 to 3.5 due to mechanical valve Once INR therapeutic, will discontinue heparin Watch out for any bleeding heart rate and blood pressure controlled Continue current treatment Continue current medications Will follow up Plan and treatment discussed with Dr. Rivera
[2018-05-19] MEDS: Heparin25000 units/250ml 1/2NS 25,000 UNITS/250 ML BAG IV PRN (11:06)
--- NOTE | 2018-05-19 11:23 | PN ---
DATE: 05/19/2018 SUBJECTIVE: The patient is in bed, in no acute distress, nontoxic. No fevers. PHYSICAL EXAMINATION: VITAL SIGNS: Temperature is 98, blood pressure is 120/70, respiratory rate 16. HEENT: Unremarkable. NECK: Supple. LUNGS: Have decreased breath sounds. HEART: Normal S1, S2. ABDOMEN: Soft, nontender. LABORATORY DATA: The patient's white count is 4.4, hemoglobin of 9. Chemistries reveal a BUN of 20, creatinine of 1.1. Urinalysis is noted. Microbiology reveals the blood cultures are negative. Urine cultures are negative. Review of orders reveals the patient to be on cefepime and vancomycin. ASSESSMENT AND PLAN: A 67-year-old male, who was seen earlier today in [facility], bed two, with hypertension, coronary artery disease, diabetes, coronary bypass graft, on Coumadin, mitral valve replacement, presented to the hospital after a syncopal episode. There have been no fevers and chills, no chest pain. Left atrial thrombus with history of mitral valve replacement, atrial fibrillation, hypertension. Blood cultures are negative. The patient had one episode of temperature of 100.7. The patient had two echo, one on yesterday read by Dr. Hoover, which was a transesophageal echo with a thrombus, less likely to be a vegetation. The patient also had an echo on 05/17/2018, the day before. There also a thrombus was seen. Four bottles of blood culture at 24 hours are negative. If all cultures remain negative, we will discontinue the antibiotics within the next 24 hours and follow closely with you. Matthew Harper MD
[2018-05-19] MEDS: Vancomycin 1gm in NS 250ml 1 GM/250 ML BAG IVPB SCH ×2 (12:21→22:43)
--- NOTE | 2018-05-19 13:45 | PN ---
DATE: 05/19/2018 REASON FOR CONSULTATION AND FOLLOWUP: Syncope. This note is an addition to the note dictated by nurse practitioner. SUBJECTIVE: In summary, this is a 67-year-old male with a past medical history significant for coronary artery disease, CABG, status post mechanical mitral valve prosthesis, appears to be noncompliant. Admitting INR was 1.31. Regular echo showed some thrombus at the prosthetic valve. Yesterday, the patient underwent a TASHA that showed 3 thrombi, the largest being 1.3 x 2.8. The patient was started on heparin and the goal is to get the INR around 3. Emphasis is made to the patient for compliance of the medication. The patient used to follow with Dr. Tino Ramirez. ASSESSMENT AND PLAN: Upon discharge, the patient will be following with Dr. Ramirez. In the interim, continue heparin until the INR gets around 3. So far, the patient is stable. We will watch for any obvious bleeding and we will follow up just for complete of the workup. The patient sent blood culture to rule out any endocarditis, but less likely the echogenic mobile structure looks like a thrombus. We will follow with you. Follow up with Infectious Disease and Neurology. Since the INR is not therapeutic, still at 2.1, we will increase Coumadin to 6 mg from today. Continue heparin until the INR gets around 3. We will follow with you. We will get the daily PT/INR. Thank you Dr. Spence for providing us the opportunity in taking care of this patient, Rick Gudino. Rosalio Rivera MD
--- NOTE | 2018-05-19 14:50 | CP.PCM.PN ---
<Morgan Costa - Last Filed: 05/19/18 14:45> Subjective - Date & Time of Evaluation Date of Evaluation: 05/19/18 Time of Evaluation: 09:15 - Subjective Subjective: Patient seen and examined at bedside. No acute events overnight. Patient with no new complaints. Denies chest pain, shortness of breath, nausea, vomiting, diarrhea, fever, chills, dizziness. Objective - Vital Signs/Intake and Output Vital Signs (last 24 hours): Temp Pulse Resp BP Pulse Ox 98.6 F 77 16 120/66 96 05/19/18 12:00 05/19/18 12:00 05/19/18 12:00 05/19/18 12:00 05/19/18 06:00 Intake and Output: 05/19/18 05/19/18 06:59 18:59 Intake Total 1046 996 Balance 1046 996 - Medications Medications: Current Medications Acetaminophen (Tylenol 325mg Tab) 650 mg PO Q6H PRN PRN Reason: Headache Last Admin: 05/18/18 17:26 Dose: 650 mg Aspirin (Aspirin Chewable) 81 mg PO DAILY [facility] Last Admin: 05/19/18 09:29 Dose: 81 mg Atorvastatin Calcium (Lipitor) 10 mg PO DIN [facility] Last Admin: 05/18/18 17:27 Dose: 10 mg Furosemide (Lasix) 40 mg PO DAILY [facility] Last Admin: 05/19/18 09:29 Dose: 40 mg Heparin Sodium/Sodium Chloride (Heparin 48956 Units/250ml 1/2 Normal Saline) 25,000 units in 250 mls @ 14.696 mls/hr IV .Q17H1M PRN; Protocol PRN Reason: ADJUST RATE PER PROTOCOL Last Admin: 05/19/18 11:06 Dose: 15 units/kg/hr, 12.247 mls/hr Cefepime HCl (Maxipime 2gm) 2 gm in 100 mls @ 100 mls/hr IVPB Q12 [facility]; Protocol Stop: 05/23/18 11:31 Last Admin: 05/19/18 09:30 Dose: 100 mls/hr Vancomycin HCl (Vancomycin 1gm) 1 gm in 250 mls @ 167 mls/hr IVPB Q12H [facility]; Protocol Last Admin: 05/19/18 12:21 Dose: 167 mls/hr Insulin Human Regular (Humulin R Low) 0 units SC ACHS [facility]; Protocol Last Admin: 05/19/18 12:21 Dose: 2 units Levetiracetam (Keppra) 500 mg PO BID [facility] Last Admin: 05/19/18 09:29 Dose: 500 mg Losartan Potassium (Cozaar) 100 mg PO DAILY [facility] Last Admin: 05/19/18 09:29 Dose: 100 mg Magnesium Oxide (Mag-Ox) 400 mg PO DAILY [facility] Last Admin: 05/19/18 09:29 Dose: 400 mg Sertraline HCl (Zoloft) 50 mg PO DAILY [facility] Last Admin: 05/19/18 09:30 Dose: 50 mg Warfarin Sodium (Coumadin) 6 mg PO 1800 [facility]; Protocol - Labs Labs: 05/19/18 07:30 05/19/18 07:30 PT 24.6 SECONDS (9.4-12.5) H 05/19/18 08:20 INR 2.11 05/19/18 08:20 APTT 73.7 Seconds (25.1-36.5) H 05/19/18 12:00 - Constitutional Appears: Non-toxic, No Acute Distress - Head Exam Head Exam: ATRAUMATIC, NORMAL INSPECTION, NORMOCEPHALIC - ENT Exam ENT Exam: Mucous Membranes Moist - Respiratory Exam Respiratory Exam: Clear to Ausculation Bilateral, NORMAL BREATHING PATTERN. absent: Rales, Rhonchi, Wheezes - Cardiovascular Exam Cardiovascular Exam: Irregular Rhythm, +S1, +S2 - GI/Abdominal Exam GI & Abdominal Exam: Soft, Normal Bowel Sounds. absent: Tenderness - Extremities Exam Extremities Exam: Normal Inspection. absent: Calf Tenderness, Pedal Edema - Neurological Exam Neurological Exam: Alert, Awake, Oriented x3 - Psychiatric Exam Psychiatric exam: Normal Affect, Normal Mood - Skin Skin Exam: Intact, Normal Color, Warm Assessment and Plan - Assessment and Plan (Free Text) Plan: 67 year old male with PMH of CAD s/p CABG, Mechanical Valve replacement, Afib on warfarin, COPD, and HTN presents with syncope, subsequently found to have multiple thrombi on mitral valve as per TASHA. Infectious disease workup currently pending, blood cultures negative at this time. Mitral valve thrombi Likely cause of syncope Patient initially with subtherapeutic INR Goal INR at this time 3-3.5 Warfarin increased to 6 mg daily Continue Heparin drip Blood cultures negative, afebrile Currently on Vancomycin and Cefepime, will be discontinued as per ID in 24 hours if cultures remain negative ID following, Dr. Harper Cardio following, Dr. 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 Johns Hx of A-fib Continue Warfarin Hx of HTN Continue Cozaar and Lasix Hx of DM ISS Hx of CVA Continue ASA and Lipitor Prophylaxis Protonix Heparin drip/warfarin Igor, PGY-3 <John Spence - Last Filed: 05/20/18 11:37> Objective - Vital Signs/Intake and Output Vital Signs (last 24 hours): Temp Pulse Resp BP Pulse Ox 97.6 F 66 18 140/65 98 05/20/18 06:00 05/20/18 06:00 05/20/18 06:00 05/20/18 09:49 05/20/18 06:00 Intake and Output: 05/20/18 05/20/18 06:59 18:59 Intake Total 1154 262 Output Total 2 Balance 1152 262 - Medications Medications: Current Medications Acetaminophen (Tylenol 325mg Tab) 650 mg PO Q6H PRN PRN Reason: Headache Last Admin: 05/18/18 17:26 Dose: 650 mg Aspirin (Aspirin Chewable) 81 mg PO DAILY [facility] Last Admin: 05/20/18 09:49 Dose: 81 mg Atorvastatin Calcium (Lipitor) 10 mg PO DIN [facility] Last Admin: 05/19/18 17:29 Dose: 10 mg Furosemide (Lasix) 40 mg PO DAILY [facility] Last Admin: 05/20/18 09:49 Dose: 40 mg Heparin Sodium/Sodium Chloride (Heparin 07465 Units/250ml 1/2 Normal Saline) 25,000 units in 250 mls @ 14.696 mls/hr IV .Q17H1M PRN; Protocol PRN Reason: ADJUST RATE PER PROTOCOL Last Titration: 05/20/18 08:35 Dose: 12 units/kg/hr, 9.798 mls/hr Cefepime HCl (Maxipime 2gm) 2 gm in 100 mls @ 100 mls/hr IVPB Q12 [facility]; Protocol Stop: 05/23/18 11:31 Last Admin: 05/20/18 09:50 Dose: 100 mls/hr Vancomycin HCl (Vancomycin 1gm) 1 gm in 250 mls @ 167 mls/hr IVPB Q12H [facility]; Protocol Last Admin: 05/19/18 22:43 Dose: 167 mls/hr Insulin Human Regular (Humulin R Low) 0 units SC ACHS [facility]; Protocol Last Admin: 05/20/18 08:12 Dose: 2 units Levetiracetam (Keppra) 500 mg PO BID [facility] Last Admin: 05/20/18 09:49 Dose: 500 mg Losartan Potassium (Cozaar) 100 mg PO DAILY [facility] Last Admin: 05/20/18 09:49 Dose: 100 mg Magnesium Oxide (Mag-Ox) 400 mg PO DAILY [facility] Last Admin: 05/20/18 09:49 Dose: 400 mg Sertraline HCl (Zoloft) 50 mg PO DAILY [facility] Last Admin: 05/20/18 09:49 Dose: 50 mg Warfarin Sodium (Coumadin) 6 mg PO 1800 [facility]; Protocol Warfarin Sodium (Coumadin) 10 mg PO 1800 [facility]; Protocol Stop: 05/20/18 12:01 - Labs Labs: 05/20/18 07:00 05/20/18 07:00 PT 26.0 SECONDS (9.4-12.5) H 05/20/18 07:00 INR 2.22 05/20/18 07:00 APTT 109.7 Seconds (25.1-36.5) H* 05/20/18 07:00 Attending/Attestation - Attestation I have personally seen and examined this patient.: Yes I have fully participated in the care of the patient.: Yes I have reviewed all pertinent clinical information, including history, physical exam and plan: Yes Notes (Text): 05/20/18 11:18 attending note; Patient seen and examined with resident. patient is alert and awake. Denies any chest pain, shortness of breath. Denies any fever, chills. Denies any Abdominal discomfort. Tolerating diet well. On IV heparin drip. Patient is a 67 year old male with PMH of CAD s/p CABG, Mechanical Valve replacement, Afib on warfarin, COPD, and HTN presents with syncope, subsequently found to have multiple thrombi on mitral valve as per TASHA. currently on IV heparin. coumadin dosgae increased today. INR is 2.11. Needs INR between 3-3.5. Cardiology evaluation appreciated. continue aspirin, Lasix and Lipitor. Adjust Coumadin dosage according to INR. blood culture is negative. Less likely endocarditis. Currently on IV vancomycin and cefepime. If cultures negative we'll discontinue antibiotics. ID evaluation appreciated. syncope; symptoms resolved. 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 Neurology evaluation appreciated. history of seizure disorder; continue [facility] physical therapy evaluation appreciated. TCU evaluation requested. possible transfer TCU on Monday. upon discharge the patient will follow-up with PMD Dr. Diana and cardiology .
--- NOTE | 2018-05-20 07:16 | CP.PCM.PN ---
Subjective - Date & Time of Evaluation Date of Evaluation: 05/20/18 Time of Evaluation: 06:40 - Subjective Subjective: Lying in bed, awake, alert, no distress Reason for consultation and follow up: Cardiac evaluation admitted due to syncopal episode,history of coronary artery disease post CABG, atrial fibrillation, post mechanical mitral valve replacement. Seen and examined by me and Dr. Rivera Objective - Vital Signs/Intake and Output Vital Signs (last 24 hours): Temp Pulse Resp BP Pulse Ox 97.6 F 66 18 160/90 H 98 05/20/18 06:00 05/20/18 06:00 05/20/18 06:00 05/20/18 06:00 05/20/18 06:00 Intake and Output: 05/20/18 05/20/18 06:59 18:59 Intake Total 1154 Output Total 2 Balance 1152 - Medications Medications: Current Medications Acetaminophen (Tylenol 325mg Tab) 650 mg PO Q6H PRN PRN Reason: Headache Last Admin: 05/18/18 17:26 Dose: 650 mg Aspirin (Aspirin Chewable) 81 mg PO DAILY [facility] Last Admin: 05/19/18 09:29 Dose: 81 mg Atorvastatin Calcium (Lipitor) 10 mg PO DIN [facility] Last Admin: 05/19/18 17:29 Dose: 10 mg Furosemide (Lasix) 40 mg PO DAILY [facility] Last Admin: 05/19/18 09:29 Dose: 40 mg Heparin Sodium/Sodium Chloride (Heparin 35172 Units/250ml 1/2 Normal Saline) 25,000 units in 250 mls @ 14.696 mls/hr IV .Q17H1M PRN; Protocol PRN Reason: ADJUST RATE PER PROTOCOL Last Admin: 05/19/18 11:06 Dose: 15 units/kg/hr, 12.247 mls/hr Cefepime HCl (Maxipime 2gm) 2 gm in 100 mls @ 100 mls/hr IVPB Q12 [facility]; Protocol Stop: 05/23/18 11:31 Last Admin: 05/19/18 21:35 Dose: 100 mls/hr Vancomycin HCl (Vancomycin 1gm) 1 gm in 250 mls @ 167 mls/hr IVPB Q12H [facility]; Protocol Last Admin: 05/19/18 22:43 Dose: 167 mls/hr Insulin Human Regular (Humulin R Low) 0 units SC ACHS [facility]; Protocol Last Admin: 05/19/18 21:42 Dose: Not Given Levetiracetam (Keppra) 500 mg PO BID [facility] Last Admin: 05/19/18 17:29 Dose: 500 mg Losartan Potassium (Cozaar) 100 mg PO DAILY [facility] Last Admin: 05/19/18 09:29 Dose: 100 mg Magnesium Oxide (Mag-Ox) 400 mg PO DAILY [facility] Last Admin: 05/19/18 09:29 Dose: 400 mg Sertraline HCl (Zoloft) 50 mg PO DAILY [facility] Last Admin: 05/19/18 09:30 Dose: 50 mg Warfarin Sodium (Coumadin) 6 mg PO 1800 [facility]; Protocol Last Admin: 05/19/18 17:28 Dose: 6 mg - Labs Labs: 05/19/18 07:30 05/19/18 07:30 PT 24.6 SECONDS (9.4-12.5) H 05/19/18 08:20 INR 2.11 05/19/18 08:20 APTT 73.7 Seconds (25.1-36.5) H 05/19/18 12:00 - Constitutional Appears: Non-toxic, No Acute Distress - Head Exam Head Exam: NORMAL INSPECTION, NORMOCEPHALIC - Eye Exam Eye Exam: Normal appearance Pupil Exam: NORMAL ACCOMODATION - ENT Exam ENT Exam: Mucous Membranes Moist, Normal Exam - Respiratory Exam Respiratory Exam: Decreased Breath Sounds, Clear to Ausculation Bilateral, NORMAL BREATHING PATTERN - Cardiovascular Exam Cardiovascular Exam: Irregular Rhythm, +S1, +S2 Additional comments: Telemetry atrial fibrillation 60-70's - GI/Abdominal Exam GI & Abdominal Exam: Soft, Normal Bowel Sounds - Extremities Exam Extremities Exam: Full ROM, Normal Capillary Refill - Neurological Exam Neurological Exam: Alert, Awake, Oriented x3 - Psychiatric Exam Psychiatric exam: Normal Affect, Normal Mood - Skin Skin Exam: Dry, Normal Color, Warm Assessment and Plan - Assessment and Plan (Free Text) Assessment: A 67 year old male who came in to the ER due to episode of syncope. History of HTN, CAD s/p CABG, DM2, Afib(on warfarin), prosthetic MVR, COPD. Echo done and suspicious of thrombus thus TASHA was scheduled. TASHA showed mechanical mitral prosthesis,multiple thrombi noted attached to the mitral valve prosthesis, at least three thrombus noted. On IV heparin. On Coumadin.To maintain INR of 3 to 3.5 due to mechanical valve. Plan: Denies chest pain, denies shortness of breath Heart rate controlled Blood pressure controlled Continue IV heparin PTT therapuetic On Coumadin, To maintain INR of 3 to 3.5 due to mechanical valve Once INR therapeutic, will discontinue heparin Watch out for any bleeding On ASA 81 mg daily,Lipitor 40 mg daily,Cozaar 100 mg daily,Coumadin 6 mg daily Mag-oxide 400 mg daily. Continue current treatment Continue current medications Will follow up Plan and treatment discussed with Dr. Rivera
[2018-05-20] MEDS: Heparin25000 units/250ml 1/2NS 25,000 UNITS/250 ML BAG IV PRN (07:32)
[2018-05-20 07:58] LABS: BASO # 0.01 K/mm3 (0.0-2.0); BASO % 0.2 % (0.0-3.0); EOS # 0.2 (0.0-0.7); EOS % 5.4 % (1.5-5.0); GRAN # 2.33 (1.4-6.5); GRAN % 57.7 % (50.0-68.0); LYMPH # 0.9 (1.2-3.4); LYMPH % 21.8 % (22.0-35.0); MEAN CELL VOLUME 94.7 fl (80.0-105.0); MEAN CORPUSCULAR HEMOGLOBIN 29.3 pg (25.0-35.0); MEAN PLATELET VOLUME 11.1 fl (7.0-11.0); MONO # 0.6 (0.1-0.6); MONO % 14.9 % (1.0-6.0); RBC 3.41 10^6/uL (3.5-6.1)
[2018-05-20] MEDS: Insulin Reg-LOW-Coverage SC SCH ×4 (08:12→22:06)
[2018-05-20 08:22] LABS: INR 2.22
[2018-05-20 08:32] LABS: PARTIAL THROMBOPLASTIN TIME 109.7 Seconds (25.1-36.5)
[2018-05-20 08:38] LABS: ALB/GLOB RATIO 1.1 (1.1-1.8); ALBUMIN 2.9 g/dL (3.0-4.8); ALT/SGPT 29 U/L (7-56); AST/SGOT 22 U/L (17-59); BLOOD UREA NITROGEN 15 mg/dL (7-21); CALCIUM 8.2 mg/dL (8.4-10.5); GFR NON-AFRICAN AMERICAN > 60
[2018-05-20] MEDS: Magnesium Oxide 400 mg Tab UD PO SCH (09:49)
[2018-05-20] MEDS: Cefepime IV 2 gm in NS 2 GM/100 ML BAG IVPB SCH (09:50)
--- NOTE | 2018-05-20 11:42 | CP.PCM.PN ---
<Brennen Flores - Last Filed: 05/20/18 11:35> Subjective - Date & Time of Evaluation Date of Evaluation: 05/20/18 Time of Evaluation: 11:35 - Subjective Subjective: PGY-2 medicine progress note for Dr Spence. No acute events noted overnight. Patient stated he felt well. Denied bleeding, chest pain, or motor weakness. Has been ambulating and tolerating diet. Denied GI issues. Understands importance of medication compliance going forward. Objective - Vital Signs/Intake and Output Vital Signs (last 24 hours): Temp Pulse Resp BP Pulse Ox 97.6 F 66 18 140/65 98 05/20/18 06:00 05/20/18 06:00 05/20/18 06:00 05/20/18 09:49 05/20/18 06:00 Intake and Output: 05/20/18 05/20/18 06:59 18:59 Intake Total 1154 262 Output Total 2 Balance 1152 262 - Medications Medications: Current Medications Acetaminophen (Tylenol 325mg Tab) 650 mg PO Q6H PRN PRN Reason: Headache Last Admin: 05/18/18 17:26 Dose: 650 mg Aspirin (Aspirin Chewable) 81 mg PO DAILY [facility] Last Admin: 05/20/18 09:49 Dose: 81 mg Atorvastatin Calcium (Lipitor) 10 mg PO DIN [facility] Last Admin: 05/19/18 17:29 Dose: 10 mg Furosemide (Lasix) 40 mg PO DAILY [facility] Last Admin: 05/20/18 09:49 Dose: 40 mg Heparin Sodium/Sodium Chloride (Heparin 49411 Units/250ml 1/2 Normal Saline) 25,000 units in 250 mls @ 14.696 mls/hr IV .Q17H1M PRN; Protocol PRN Reason: ADJUST RATE PER PROTOCOL Last Titration: 05/20/18 08:35 Dose: 12 units/kg/hr, 9.798 mls/hr Cefepime HCl (Maxipime 2gm) 2 gm in 100 mls @ 100 mls/hr IVPB Q12 [facility]; Protocol Stop: 05/23/18 11:31 Last Admin: 05/20/18 09:50 Dose: 100 mls/hr Vancomycin HCl (Vancomycin 1gm) 1 gm in 250 mls @ 167 mls/hr IVPB Q12H [facility]; Protocol Last Admin: 05/19/18 22:43 Dose: 167 mls/hr Insulin Human Regular (Humulin R Low) 0 units SC ACHS [facility]; Protocol Last Admin: 05/20/18 08:12 Dose: 2 units Levetiracetam (Keppra) 500 mg PO BID [facility] Last Admin: 05/20/18 09:49 Dose: 500 mg Losartan Potassium (Cozaar) 100 mg PO DAILY [facility] Last Admin: 05/20/18 09:49 Dose: 100 mg Magnesium Oxide (Mag-Ox) 400 mg PO DAILY [facility] Last Admin: 05/20/18 09:49 Dose: 400 mg Sertraline HCl (Zoloft) 50 mg PO DAILY [facility] Last Admin: 05/20/18 09:49 Dose: 50 mg Warfarin Sodium (Coumadin) 6 mg PO 1800 [facility]; Protocol Warfarin Sodium (Coumadin) 10 mg PO 1800 [facility]; Protocol Stop: 05/20/18 12:01 - Labs Labs: 05/20/18 07:00 05/20/18 07:00 PT 26.0 SECONDS (9.4-12.5) H 05/20/18 07:00 INR 2.22 05/20/18 07:00 APTT 109.7 Seconds (25.1-36.5) H* 05/20/18 07:00 - Additional Findings Additional findings: - Constitutional Appears: Non-toxic, No Acute Distress - Head Exam Head Exam: ATRAUMATIC, NORMAL INSPECTION, NORMOCEPHALIC - ENT Exam Additional comments: poor dentation - Neck Exam Neck Exam: Full ROM - Respiratory Exam Respiratory Exam: Clear to Ausculation Bilateral, NORMAL BREATHING PATTERN - Cardiovascular Exam Cardiovascular Exam: Irregular Rhythm, +S1, +S2 - GI/Abdominal Exam GI & Abdominal Exam: Soft, Normal Bowel Sounds - Neurological Exam Neurological Exam: Alert, Awake, Oriented x3 Neuro motor strength exam: Left Upper Extremity: 3, Right Upper Extremity: 4, Left Lower Extremity: 3, Right Lower Extremity: 4 - Psychiatric Exam Psychiatric exam: Normal Affect, Normal Mood - Skin Skin Exam: Normal Color Additional comments: stasis dermatitis in lower legs bilaterally Assessment and Plan - Assessment and Plan (Free Text) Plan: This patient is a 67M w/ a PMH of CAD s/p CABG, Mechanical Valve replacement, Afib (AC w/ warfarin), COPD, and HTN; presented to [facility] ED on 05/17 immediately post syncopal episode. Patient was subsequently admitted for work up of syncopal episode and found to have septic vegetation vs. thrombus on mechanical valve. PLAN: Echogenic Mobile Structure - Likely Thrombus - As per conversation w/ cardiology, Results from TASHA on 05/18 show 3 thrombus - Will anticoagulate w/ heparin at this time (Heparin to Warfarin bridge) - Will continue w/ warfarin 6mg QD at this time until INR is 3-3.5 - Will c/w Vanc + Cef as patient has 3 minor jeong criteria for endocarditis as per ID Abx started 05/18 - Previously febrile on 05/17 afternoon. - Acetaminophen 650mg RC PRN fever - Pending 05/17 and 05/18 BCx at this time - ID Following, Appreciate Reccs - Cardiology Following, Appreciate reccs Syncopal Episode: Cardiac Etiologies vs. Neurologic Etiologies vs. Autonomic Dysfunction; Uncontrolled Afib w/ RVR more likely etiology Afib w/ RVR vs CVA vs Orthostatic Hypotension vs Vasovagal syncope - Per conversation w/ the patient, it appears he has been largely noncompliant w/ his medications. Hence Syncopal episode could be worsening of his chronic conditions; however given his history of CVA, new onset CVA must be ruled out. - Patient is reporting hisotry of prior CVA, findings confirmed by reviewing CT Head in 2017; Does not appear to be on ASA at home - 05/17 - CT Head: no ICH. Encephalomalacia involving right parietal lobe, compatible with an old infarct - 05/18 - MRI Head: Redemonstration of an old right parietal infarct with cystic encephalomalacia. Evidence of chronic periventricular white matter ischemic disease. Probable tiny old infarct in the right cerebellum posteriorly. Atrophic changes. No diffusion-weighted abnormality to suggest acute territorial infarct. - 05/17 - Patent vertebral arteries bilaterally; No HD significant stenosis of internal carotid arteries, No thrombus identified within intracranial - 05/18 - TTE - LVEF 60-65%, Trace MR, Mechanical mitral valve, mild-mod TR, Echogenic mobile structure noted in LA, not very clear, thrombus vs vegetation - Upon admission EKG was interpreted as Afib w/ RVR; QTc 502 - PT Eval Treat: Will require skilled PT 3-5x/week for x1 week - TCU - C/w telemtry monitoring - Can check orthostatics however results may be skewed due to patient receiving IVF - Neuro Following, Appreciate recs Hx HTN: - Can continue managing BP as normal; No need for permissive HTN at this time - Continue home med cozaar 100mg qd Hx DM: - Hgb A1C 8.8 - ISS-low ACHS - Accuchecks ACHS Hx CVA: - C/w ASA 81 qd - C/w Lipitor 10 qd HypoKalemia - Repleted today - Recheck in AM HypoMag - Repleted today - May need standing MagOx order; has required repletion QD CAD - Continue home med lasix 40mg po qd - Continue aspirin 81mg po qd - Continue Lipitor 10mg po qhs Hx anxiety: - C/w home med zoloft Prophylaxis: -DVT ppx: Heparin Drip + Warfarin -GI ppx: Protonix DISPO: Patient will be discharged to TCU once medically optimized for improvem ent of deficits and to facilitate [place] with functional mobility Patient was seen, examined, and discussed w/ attending physician Dr. Spence <John Spence - Last Filed: 05/20/18 13:05> Objective - Vital Signs/Intake and Output Vital Signs (last 24 hours): Temp Pulse Resp BP Pulse Ox 98.3 F 77 20 132/70 98 05/20/18 12:00 05/20/18 12:00 05/20/18 12:00 05/20/18 12:00 05/20/18 06:00 Intake and Output: 05/20/18 05/20/18 06:59 18:59 Intake Total 1154 262 Output Total 2 Balance 1152 262 - Medications Medications: Current Medications Acetaminophen (Tylenol 325mg Tab) 650 mg PO Q6H PRN PRN Reason: Headache Last Admin: 05/18/18 17:26 Dose: 650 mg Aspirin (Aspirin Chewable) 81 mg PO DAILY [facility] Last Admin: 05/20/18 09:49 Dose: 81 mg Atorvastatin Calcium (Lipitor) 10 mg PO DIN [facility] Last Admin: 05/19/18 17:29 Dose: 10 mg Furosemide (Lasix) 40 mg PO DAILY [facility] Last Admin: 05/20/18 09:49 Dose: 40 mg Heparin Sodium/Sodium Chloride (Heparin 60914 Units/250ml 1/2 Normal Saline) 25,000 units in 250 mls @ 14.696 mls/hr IV .Q17H1M PRN; Protocol PRN Reason: ADJUST RATE PER PROTOCOL Last Titration: 05/20/18 08:35 Dose: 12 units/kg/hr, 9.798 mls/hr Insulin Human Regular (Humulin R Low) 0 units SC ACHS [facility]; Protocol Last Admin: 05/20/18 12:38 Dose: 3 units Levetiracetam (Keppra) 500 mg PO BID [facility] Last Admin: 05/20/18 09:49 Dose: 500 mg Losartan Potassium (Cozaar) 100 mg PO DAILY [facility] Last Admin: 05/20/18 09:49 Dose: 100 mg Magnesium Oxide (Mag-Ox) 400 mg PO DAILY [facility] Last Admin: 05/20/18 09:49 Dose: 400 mg Sertraline HCl (Zoloft) 50 mg PO DAILY [facility] Last Admin: 05/20/18 09:49 Dose: 50 mg Warfarin Sodium (Coumadin) 6 mg PO 1800 [facility]; Protocol - Labs Labs: 05/20/18 07:00 05/20/18 07:00 PT 26.0 SECONDS (9.4-12.5) H 05/20/18 07:00 INR 2.22 05/20/18 07:00 APTT 109.7 Seconds (25.1-36.5) H* 05/20/18 07:00 Attending/Attestation - Attestation I have personally seen and examined this patient.: Yes I have fully participated in the care of the patient.: Yes I have reviewed all pertinent clinical information, including history, physical exam and plan: Yes Notes (Text): 05/20/18 13:02 attending note; Patient seen and examined with resident. patient is alert and awake. sitting in the bed. Not in any acute distress. Denies any chest pain, shortness of breath. Denies any fever, chills. Denies any Abdominal discomfort. Tolerating diet well. On IV heparin drip. Patient is a 67 year old male with PMH of CAD s/p CABG, Mechanical Valve replacement, Afib on warfarin, COPD, and HTN presents with syncope, subsequently found to have multiple thrombi on mitral valve as per TASHA. currently on IV heparin. coumadin 10 mg by mouth one dose given. Continue Coumadin 6 mg. INR is 2.12. PTT is therapeutic. adjust heparin drip according to protocol. Needs INR between 3-3.5. Cardiology evaluation appreciated. continue aspirin, Lasix, Cozaar and Lipitor. Adjust Coumadin dosage according to INR. blood culture is negative. Less likely endocarditis. Currently on IV vancomycin and cefepime. If cultures negative we'll discontinue antibiotics. ID evaluation appreciated. syncope; symptoms resolved. 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 Neurology evaluation appreciated. history of seizure disorder; continue [facility] physical therapy evaluation appreciated. TCU evaluation requested. possible transfer TCU on Monday. upon discharge the patient will follow-up with PMD Dr. Diana and cardiology . 05/20/18 13:03 05/20/18 13:05
--- NOTE | 2018-05-20 13:14 | PN ---
DATE: 05/20/2018 REASON FOR CONSULTATION: Followup cardiac evaluation, admitted with syncopal episode, history of coronary artery disease, CABG, atrial fibrillation, status post mechanical valve replacement and thrombus in LV attached to the mechanical mitral valve. Admitted with a subtherapeutic INR 1.3. This note is in addition to the dictated by nurse practitioner, Tessy Hung. The patient is stable. Today, INR is 2.2 and PTT is 109. RECOMMENDATION: We will hold the heparin as per protocol. We will increase the Coumadin to 10 mg today one dose followed by 6 mg daily. Follow up PT and INR. If the INR is stable, possible discharge to home tomorrow. So far, the blood culture is negative, so most likely this echogenic mobile structure is thrombus. We will follow with you. We will change the Coumadin to 6 mg from tomorrow and 10 mg one dose now. Goal is to keep INR around 3 because of the thrombus and mechanical valve. We will give 10 mg at 12 noon early and then 6 mg from tomorrow. If the INR becomes above 3, we will discontinue heparin and possibly discharge home. So far, blood culture remains negative. Thank you Dr. Argueta for providing us the opportunity in taking care of the patient, Rick Gudino. Rosalio Rivera MD
--- NOTE | 2018-05-20 13:33 | PN ---
DATE: 05/20/2018 SUBJECTIVE: The patient is in bed in no acute distress, nontoxic. OBJECTIVE: VITAL SIGNS: Temperature is 97, blood pressure is 160/90, respiratory rate of 18. HEENT: Unremarkable. NECK: Supple. LUNGS: Have decreased breath sounds. HEART: Normal S1, S2. ABDOMEN: Soft, nontender. LABORATORY EXAMINATION: Reveals a white count of 4000, hemoglobin of 10, platelets of 190. Chemistries reveals a BUN of 15, creatinine of 1.0, procalcitonin 0.09. Urinalysis is noted. Microbiology reveals blood cultures are negative. Urine cultures are negative. Review of orders reveals the patient to be on his vanco and cefepime. ASSESSMENT/PLAN: A 67-year-old man who was seen earlier today with a history of hypertension, coronary artery disease, diabetes, coronary bypass graft, mitral valve replacement, presented with syncope. He has not complained any fevers; however, in the hospital, he did have a temperature of 100.7. On the second day of hospitalization on admission, temperature was 97 in the emergency room. Thus far, all his cultures are still negative and his echo is noted to be thrombus, less likely a vegetation with negative blood cultures x2 sets and so far he is not behaving like endocarditis. We will discontinue the antibiotics. We will follow the fever curve and the patient is off of antibiotics as a sterile thrombus with negative blood cultures. Matthew Harper MD
[2018-05-21 00:36] VITALS: O2SAT 99
[2018-05-21 06:38] VITALS: PULSE 105; RESP 95; TEMP 97.8
--- NOTE | 2018-05-21 08:00 | CP.PCM.PN ---
Subjective - Date & Time of Evaluation Date of Evaluation: 05/21/18 Time of Evaluation: 06:35 - Subjective Subjective: Awake, alert, no distress, lying in bed Reason for consultation and follow up: Cardiac evaluation admitted due to syncopal episode,history of coronary artery disease post CABG, atrial fibrillation, post mechanical mitral valve replacement. Seen and examined by me and Dr. Rivera Objective - Vital Signs/Intake and Output Vital Signs (last 24 hours): Temp Pulse Resp BP Pulse Ox 97.8 F 105 H 95 H 140/67 99 05/21/18 06:00 05/21/18 06:00 05/21/18 06:00 05/21/18 06:00 05/21/18 00:01 Intake and Output: 05/21/18 05/21/18 06:59 18:59 Intake Total 1355 Output Total 803 Balance 552 - Medications Medications: Current Medications Acetaminophen (Tylenol 325mg Tab) 650 mg PO Q6H PRN PRN Reason: Headache Last Admin: 05/21/18 02:51 Dose: 650 mg Aspirin (Aspirin Chewable) 81 mg PO DAILY [facility] Last Admin: 05/20/18 09:49 Dose: 81 mg Atorvastatin Calcium (Lipitor) 10 mg PO DIN [facility] Last Admin: 05/20/18 17:24 Dose: 10 mg Furosemide (Lasix) 40 mg PO DAILY [facility] Last Admin: 05/20/18 09:49 Dose: 40 mg Heparin Sodium/Sodium Chloride (Heparin 03720 Units/250ml 1/2 Normal Saline) 25,000 units in 250 mls @ 14.696 mls/hr IV .Q17H1M PRN; Protocol PRN Reason: ADJUST RATE PER PROTOCOL Last Titration: 05/20/18 22:04 Dose: 10 units/kg/hr, 8.165 mls/hr Insulin Human Regular (Humulin R Low) 0 units SC ACHS [facility]; Protocol Last Admin: 05/20/18 22:06 Dose: Not Given Levetiracetam (Keppra) 500 mg PO BID [facility] Last Admin: 05/20/18 17:24 Dose: 500 mg Losartan Potassium (Cozaar) 100 mg PO DAILY [facility] Last Admin: 05/20/18 09:49 Dose: 100 mg Magnesium Oxide (Mag-Ox) 400 mg PO DAILY [facility] Last Admin: 05/20/18 09:49 Dose: 400 mg Sertraline HCl (Zoloft) 50 mg PO DAILY [facility] Last Admin: 05/20/18 09:49 Dose: 50 mg Warfarin Sodium (Coumadin) 6 mg PO 1800 [facility]; Protocol - Labs Labs: 05/20/18 07:00 05/20/18 07:00 PT 26.0 SECONDS (9.4-12.5) H 05/20/18 07:00 INR 2.22 05/20/18 07:00 APTT 90.3 Seconds (25.1-36.5) H 05/20/18 19:30 - Constitutional Appears: Non-toxic, No Acute Distress - Head Exam Head Exam: NORMAL INSPECTION, NORMOCEPHALIC - Eye Exam Eye Exam: Normal appearance Pupil Exam: NORMAL ACCOMODATION - ENT Exam ENT Exam: Mucous Membranes Moist, Normal Exam - Respiratory Exam Respiratory Exam: Clear to Ausculation Bilateral, NORMAL BREATHING PATTERN - Cardiovascular Exam Cardiovascular Exam: Irregular Rhythm, +S1, +S2 Additional comments: Telemetry- Atrial fibrillation - GI/Abdominal Exam GI & Abdominal Exam: Soft, Normal Bowel Sounds - Extremities Exam Extremities Exam: Full ROM, Normal Capillary Refill - Neurological Exam Neurological Exam: Alert, Awake, Oriented x3 - Psychiatric Exam Psychiatric exam: Normal Affect, Normal Mood - Skin Skin Exam: Dry, Normal Color, Warm Assessment and Plan - Assessment and Plan (Free Text) Assessment: A 67 year old male who came in to the ER due to episode of syncope. History of HTN, CAD s/p CABG, DM2, Afib(on warfarin), prosthetic MVR, COPD. Echo done and suspicious of thrombus thus TASHA was scheduled. TASHA showed mechanical mitral prosthesis,multiple thrombi noted attached to the mitral valve prosthesis, at least three thrombus noted. On IV heparin. PTT therapeutic bridge until INR therapeutic. On Coumadin.To maintain INR at least 3. Plan: On heparin drip, PTT therapeutic INR yesterday 2.2 Coumadin 10 mg given INR level pending today Denies chest pain, denies shortness of breath Heart rate controlled Blood pressure controlled On Coumadin, once INR of 3,will discontinue heparin Watch out for any bleeding On ASA 81 mg daily,Lipitor 40 mg daily,Cozaar 100 mg daily,Coumadin 6 mg daily Mag-oxide 400 mg daily. Continue current treatment Continue current medications Will follow up Plan and treatment discussed with Dr. Rivera
[2018-05-21 08:03] LABS: BASO # 0.01 K/mm3 (0.0-2.0); BASO % 0.2 % (0.0-3.0); EOS # 0.2 (0.0-0.7); GRAN # 2.76 (1.4-6.5); GRAN % 64.6 % (50.0-68.0); HEMOGLOBIN 10.4 g/dL (14.0-18.0); LYMPH # 0.9 (1.2-3.4); LYMPH % 21.1 % (22.0-35.0); MEAN CELL VOLUME 94.2 fl (80.0-105.0); MEAN CORPUSCULAR HGB CONC 30.8 g/dl (31.0-37.0); MEAN PLATELET VOLUME 11.2 fl (7.0-11.0); MONO # 0.4 (0.1-0.6); MONO % 10.1 % (1.0-6.0); RBC 3.59 10^6/uL (3.5-6.1); RED CELL DISTRIBUTION WIDTH 13.9 % (11.5-14.5); WHITE BLOOD COUNT 4.3 10^3/uL (4.5-11.0)
[2018-05-21 08:12] LABS: INR 3.17; PARTIAL THROMBOPLASTIN TIME 74.7 Seconds (25.1-36.5); PROTHROMBIN TIME 37.3 SECONDS (9.4-12.5)
[2018-05-21 08:38] LABS: ALB/GLOB RATIO 1.2 (1.1-1.8); ALBUMIN 3.1 g/dL (3.0-4.8); ALT/SGPT 24 U/L (7-56); AST/SGOT 31 U/L (17-59); BLOOD UREA NITROGEN 15 mg/dL (7-21); CALCIUM 8.5 mg/dL (8.4-10.5); GFR NON-AFRICAN AMERICAN > 60
[2018-05-21] MEDS: Insulin Reg-LOW-Coverage SC SCH ×2 (08:46→12:32)
[2018-05-21] MEDS: Magnesium Oxide 400 mg Tab UD PO SCH (10:16)
[2018-05-21 10:21] VITALS: BP 157/78
--- NOTE | 2018-05-21 10:47 | CP.PCM.PN ---
<Morgan Costa - Last Filed: 05/21/18 13:21> Subjective - Date & Time of Evaluation Date of Evaluation: 05/21/18 Time of Evaluation: 07:00 - Subjective Subjective: Patient seen and examined at bedside. Patient with no complaints. Denies chest pain, shortness of breath, nausea, vomiting, diarrhea, fever, chills. Objective - Vital Signs/Intake and Output Vital Signs (last 24 hours): Temp Pulse Resp BP Pulse Ox 97.8 F 105 H 95 H 157/78 H 99 05/21/18 06:00 05/21/18 06:00 05/21/18 06:00 05/21/18 10:16 05/21/18 00:01 Intake and Output: 05/21/18 05/21/18 06:59 18:59 Intake Total 1355 Output Total 803 Balance 552 - Medications Medications: Current Medications Acetaminophen (Tylenol 325mg Tab) 650 mg PO Q6H PRN PRN Reason: Headache Last Admin: 05/21/18 02:51 Dose: 650 mg Aspirin (Aspirin Chewable) 81 mg PO DAILY [facility] Last Admin: 05/21/18 10:16 Dose: 81 mg Atorvastatin Calcium (Lipitor) 10 mg PO DIN [facility] Last Admin: 05/20/18 17:24 Dose: 10 mg Furosemide (Lasix) 40 mg PO DAILY [facility] Last Admin: 05/21/18 10:16 Dose: 40 mg Insulin Human Regular (Humulin R Low) 0 units SC ACHS [facility]; Protocol Last Admin: 05/21/18 08:46 Dose: Not Given Levetiracetam (Keppra) 500 mg PO BID [facility] Last Admin: 05/21/18 10:16 Dose: 500 mg Losartan Potassium (Cozaar) 100 mg PO DAILY [facility] Last Admin: 05/21/18 10:16 Dose: 100 mg Magnesium Oxide (Mag-Ox) 400 mg PO DAILY [facility] Last Admin: 05/21/18 10:16 Dose: 400 mg Sertraline HCl (Zoloft) 50 mg PO DAILY [facility] Last Admin: 05/21/18 10:17 Dose: 50 mg Warfarin Sodium (Coumadin) 6 mg PO 1800 [facility]; Protocol - Labs Labs: 05/21/18 07:45 05/21/18 07:45 PT 37.3 SECONDS (9.4-12.5) H 05/21/18 07:45 INR 3.17 05/21/18 07:45 APTT 74.7 Seconds (25.1-36.5) H 05/21/18 07:45 - Constitutional Appears: Non-toxic, No Acute Distress - Head Exam Head Exam: ATRAUMATIC, NORMAL INSPECTION, NORMOCEPHALIC - Eye Exam Eye Exam: EOMI, Normal appearance - ENT Exam ENT Exam: Mucous Membranes Moist, Normal Exam - Respiratory Exam Respiratory Exam: Clear to Ausculation Bilateral, NORMAL BREATHING PATTERN - Cardiovascular Exam Cardiovascular Exam: RRR, +S1, +S2 - GI/Abdominal Exam GI & Abdominal Exam: Soft, Normal Bowel Sounds. absent: Tenderness - Extremities Exam Extremities Exam: Normal Inspection. absent: Pedal Edema - Neurological Exam Neurological Exam: Alert, Awake, Oriented x3 - Psychiatric Exam Psychiatric exam: Normal Affect, Normal Mood - Skin Skin Exam: Dry, Intact, Warm Assessment and Plan - Assessment and Plan (Free Text) Plan: Mitral valve thrombi Hx of mitral valve replacement Hx of A-fib Hx of HTN Hx of DM2 Plan Continue to monitor patient off of antibiotics No clear evidence of endocarditis Blood cultures negative, afebrile Continue current medical regimen Igor, PGY-3 <Alcides Lafleur S - Last Filed: 05/21/18 15:30> Objective - Vital Signs/Intake and Output Vital Signs (last 24 hours): Temp Pulse Resp BP Pulse Ox 97.8 F 105 H 95 H 157/78 H 99 05/21/18 06:00 05/21/18 10:00 05/21/18 06:00 05/21/18 10:16 05/21/18 00:01 Intake and Output: 05/21/18 05/21/18 06:59 18:59 Intake Total 1355 33 Output Total 803 Balance 552 33 - Labs Labs: 05/21/18 07:45 05/21/18 07:45 PT 37.3 SECONDS (9.4-12.5) H 05/21/18 07:45 INR 3.17 05/21/18 07:45 APTT 74.7 Seconds (25.1-36.5) H 05/21/18 07:45 Assessment and Plan - Assessment and Plan (Free Text) Plan: Infectious diseases Attending Physician Attestation Patient seen and examined, discussed with medical social consultant. I have reviewed the patient's history of present illness, past medical, social, personal and family histories, pertinent physical exam findings, course so far in this hospital admission, pertinent laboratory and imaging results. I agree with the above findings, assessment and plan. In addition, patient with multiple thrombi on the prosthetic mitral valve as seen on TASHA, but blood cx continue to be negative - probably sterile thrombi. Will continue to monitor off antibiotics.
--- NOTE | 2018-05-21 14:28 | CP.PCM.DIS ---
<Gaetano Byrnes - Last Filed: 05/21/18 15:01> Provider - Provider Date of Admission: 05/17/18 16:22 Attending physician: Lisa Zavala DO Primary care physician: Pb Diana MD Consults: 05/16/18 23:39 Social Work Referral Routine Comment: met criteria Physician Instructions: Reason For Exam: met criteria 05/16/18 23:42 Physician Consult Routine Comment: Consulting Provider: Obinna Johns Consulting Physician: Obinna Johns Reason for Consult: syncope 05/16/18 23:43 Inpatient CARBONIZER Core Measures Referral Routine Comment: Physician Instructions: Reason For Exam: met criteria Transition In Care/Readmission Reduction Routine Comment: Physician Instructions: Reason For Exam: met criteria 05/16/18 23:50 Diabetic Education Referral Routine Comment: Physician Instructions: Reason For Exam: met criteria 05/16/18 23:56 Diabetic Education Referral Routine Comment: Physician Instructions: Reason For Exam: met crtieria 05/17/18 08:29 Consult [Physician Consult] Routine Comment: Consulting Provider: Rosalio Preston Consulting Physician: Rosalio Preston Reason for Consult: afib, syncope 05/17/18 16:20 Infectious Disease Consult Routine Comment: Consulting Provider: Aclides Lafleur Consulting Physician: Alcides Lafleur Reason for Consult: Febrile w/ possible heart valve vegetation 05/18/18 11:50 TCU [Evaluation for TRCU] Routine Comment: Physician Instructions: Reason For Exam: strengthening Time Spent in preparation of Discharge (in minutes): 45 Diagnosis - Discharge Diagnosis (1) Intracardiac thrombus Status: Acute (2) Non compliance w medication regimen Status: Chronic (3) Hx of diabetes mellitus Status: Chronic (4) History of CVA (cerebrovascular accident) Status: Chronic (5) Hypokalemia Status: Resolved (6) Hypomagnesemia Status: Resolved (7) Hx of coronary artery disease Status: Chronic (8) Hx of anxiety disorder Status: Chronic (9) Syncope Status: Resolved (10) Atrial fibrillation Status: Chronic (11) Hypertension Status: Chronic Hospital Course - Lab Results Lab Results: Micro Results 05/18/18 08:30 Blood-Venous Blood Culture - Preliminary NO GROWTH AFTER 3 DAYS 05/18/18 07:30 Blood-Venous Blood Culture - Preliminary NO GROWTH AFTER 3 DAYS 05/17/18 15:30 Blood-Venous Blood Culture - Preliminary NO GROWTH AFTER 3 DAYS 05/17/18 15:00 Blood-Venous Blood Culture - Preliminary NO GROWTH AFTER 3 DAYS 05/17/18 16:50 Urine,Catheterized Urine Culture - Final No Growth (<1,000 CFU/ML) Most Recent Lab Values WBC 4.3 10^3/uL (4.5-11.0) L 05/21/18 07:45 RBC 3.59 10^6/uL (3.5-6.1) 05/21/18 07:45 Hgb 10.4 g/dL (14.0-18.0) L 05/21/18 07:45 Hct 33.8 % (42.0-52.0) L 05/21/18 07:45 MCV 94.2 fl (80.0-105.0) 05/21/18 07:45 MCH 29.0 pg (25.0-35.0) 05/21/18 07:45 MCHC 30.8 g/dl (31.0-37.0) L 05/21/18 07:45 RDW 13.9 % (11.5-14.5) 05/21/18 07:45 Plt Count 196 10^3/uL (120.0-450.0) 05/21/18 07:45 MPV 11.2 fl (7.0-11.0) H 05/21/18 07:45 Gran % 64.6 % (50.0-68.0) 05/21/18 07:45 Lymph % (Auto) 21.1 % (22.0-35.0) L 05/21/18 07:45 [place] % (Auto) 10.1 % (1.0-6.0) H 05/21/18 07:45 Eos % (Auto) 4.0 % (1.5-5.0) 05/21/18 07:45 Baso % (Auto) 0.2 % (0.0-3.0) 05/21/18 07:45 Gran # 2.76 (1.4-6.5) 05/21/18 07:45 Lymph # (Auto) 0.9 (1.2-3.4) L 05/21/18 07:45 [place] # (Auto) 0.4 (0.1-0.6) 05/21/18 07:45 Eos # (Auto) 0.2 (0.0-0.7) 05/21/18 07:45 Baso # (Auto) 0.01 K/mm3 (0.0-2.0) 05/21/18 07:45 PT 37.3 SECONDS (9.4-12.5) H 05/21/18 07:45 INR 3.17 05/21/18 07:45 APTT 74.7 Seconds (25.1-36.5) H 05/21/18 07:45 Sodium 139 mmol/L (132-148) 05/21/18 07:45 Potassium 3.5 mmol/L (3.6-5.0) L 05/21/18 07:45 Chloride 102 mmol/L (98-107) 05/21/18 07:45 Carbon Dioxide 34 mmol/L (21-33) H 05/21/18 07:45 Anion Gap 7 (10-20) L 05/21/18 07:45 BUN 15 mg/dL (7-21) 05/21/18 07:45 Creatinine 1.0 mg/dl (0.8-1.5) 05/21/18 07:45 Est GFR ( Amer) > 60 05/21/18 07:45 Est GFR (Non-Af Amer) > 60 05/21/18 07:45 POC Glucose (mg/dL) 293 mg/dL (65-110) H 05/21/18 12:13 Random Glucose 215 mg/dL (70-110) H 05/21/18 07:45 Hemoglobin A1c 8.8 % (4.2-6.5) H 05/16/18 19:30 Calcium 8.5 mg/dL (8.4-10.5) 05/21/18 07:45 Magnesium 1.6 mg/dL (1.7-2.2) L 05/18/18 06:00 Total Bilirubin 0.6 mg/dL (0.2-1.3) 05/21/18 07:45 AST 31 U/L (17-59) 05/21/18 07:45 ALT 24 U/L (7-56) 05/21/18 07:45 Alkaline Phosphatase 96 U/L (38-126) 05/21/18 07:45 Lactate Dehydrogenase 1152 U/L (333-699) H 05/16/18 19:30 Total Creatine Kinase 46 U/L (35-230) 05/16/18 19:30 Troponin I 0.01 ng/mL 05/16/18 19:30 Total Protein 5.7 g/dL (5.8-8.3) L 05/21/18 07:45 Albumin 3.1 g/dL (3.0-4.8) 05/21/18 07:45 Globulin 2.6 gm/dL 05/21/18 07:45 Albumin/Globulin Ratio 1.2 (1.1-1.8) 05/21/18 07:45 Triglycerides 61 mg/dL (35-160) 05/17/18 06:30 Cholesterol 118 mg/dL (130-200) L 05/17/18 06:30 LDL Cholesterol Direct 65 mg/dL (0-129) 05/17/18 06:30 HDL Cholesterol 45 mg/dL (29-60) 05/17/18 06:30 Procalcitonin 0.09 NG/ML (0.19-0.49) L 05/17/18 15:30 TSH 3rd Generation 1.12 mIU/mL (0.46-4.68) 05/17/18 06:00 Urine Color Yellow (YELLOW) 05/17/18 02:15 Urine Appearance Clear (CLEAR) 05/17/18 02:15 Urine pH 6.5 (4.7-8.0) 05/17/18 02:15 Ur Specific [place] 1.015 (1.005-1.035) 05/17/18 02:15 Urine Protein 30 mg/dL (<30 mg/dL) H 05/17/18 02:15 Urine Glucose (UA) 100 mg/dL (NEGATIVE) H 05/17/18 02:15 Urine Ketones Negative mg/dL (NEGATIVE) 05/17/18 02:15 Urine Blood Small (NEGATIVE) H 05/17/18 02:15 Urine Nitrate Negative (NEGATIVE) 05/17/18 02:15 Urine Bilirubin Negative (NEGATIVE) 05/17/18 02:15 Urine Urobilinogen 0.2 E.U./dL (<1 E.U./dL) 05/17/18 02:15 Ur Leukocyte Esterase Negative Tara/uL (NEGATIVE) 05/17/18 02:15 Urine RBC 1 - 3 /hpf (0-2) H 05/17/18 02:15 Urine WBC 0 - 2 /hpf (0-6) 05/17/18 02:15 Ur Epithelial Cells 0 - 2 /hpf (0-5) 05/17/18 02:15 Urine Bacteria None /hpf (NONE) 05/17/18 02:15 - Hospital Course Hospital Course: HPI at time of admission: "67 y o male with PMH of HTN, CAD s/p CABG, DM2, Afib(on warfarin), prosthetic MVR presents to the ED for an episode of syncope. Patient was waiting today to apple picker his meds from pharmacy then he started to feel lightheadedness and lost consciousness. He was sitting on a chair during that time. He can not recall how he got to the hospital. He denied associated CP, palpitations, visual changes, headache, vomiting, nausea. He admits to not have adequate oral intake this day and not taking his meds for 3 weeks. He experienced similar episode few weeks ago and admitted to [facility] [place] for UTI and d/c on a course of antibiotic that he completed. Patient denied urinary symptoms, N/V/D, bleeding per rectum, abdominal pain, leg swelling, PND, orthopnia, PND, exercise intolerance, SOB." Hospital Course Pertinent imaging: CXR 05/16: no active disease CT head 05/16: normal MRI Brain 05/17: Redemonstration of old R parietal infarct with cystic encephalomalacia. Evidence of chronic periventricular white matter ischemic disease. Probable tiny old infarct in R cerebellum posteriorly. Atrophic changes. No diffusion-weighted abnormality to suggest acute tentorial infarct. CTA Head/Neck 05/17: No evidence of endoluminal thrombus, occlusion or definite significant stenosis in the intracranial arteries. Extensive atherosclerotic vascular calcifications as described above. No evidence of hemodynamically significant stenosis in the internal carotid arteries. Patent b/l vertebral arteries. Echo 05/17: L and R atria moderately dilated, EF 60-65%, RV mild-mod dilated, systolic fx mild-mod reduced, mechanical mitral valve, mild-mod tricuspid regurgitation; echogenic mobile structure noted in LA, not very clear could be thrombus Echo 05/18: LV fx normal 60-65%, mild to moderate mitral regurgitation. Multiple echogenic structures attached to leaflets of mechanical mitral valves (both leaflets) less mobile towards ventricular surface, largest being 1.3/2.9 cm with multiple jets of mild to moderate MR, C/w possible thrombus. Mild-mod tricuspid regurgitation. Velocity in [place] less than 0.4 m/s. Minimal flat plaque in descending aorta noted. Of note, admitting INR was 1.31, so above TASHA/TTE findings c/w thrombus and less likely vegetation, correlate clinically. EKG on admission was interpreted as A-fib with RVR, QTc 502. Pt was admitted for syncopal work-up and was found to have septic vegetation vs. thrombus on mechanical valve. Pt was placed on Heparin to Warfarin bridge for low INR on admission and titrated appropriately on Warfarin dose. Pt was placed on Vanco and Cefepime as per ID (Dr. Harper) for treatment of suspected vegetations on valve. Neurology (Dr. Johns) and Cardiology was consulted (Dr. Rivera) for syncopal work- up. Pt was continued on home meds during admission. It was recommended by PT that pt have skilled PT services before discharge to home and recommended TCU. Pt refused to be admitted to TCU and wanted to be discharged to home instead. Pt was given script for walker but did not want to wait for walker to be brought to the bedside. Instead he requested his family bring him his mother's walker to be brought to bedside for safe discharge to home. Pt was discharged to home on 05/21/18. Instructed to f/u with PMD Dr. Diana within 3-5 days of discharge. Instructed to have INR checked in 3 days at clinic. Instructed to f/u with primary continuous miner Dr. Ramirez within 7 days of dischar ge. Instructed to inform him about thrombus in heart and that he needs to maintain an INR of 3-3.5. Was given scripts for ASA, Lipitor, Lasix, Keppra, Cozaar, and Coumadin prior to discharge. For further details of hospital admission, please refer to hospital EMR. Discharge Exam - Head Exam Head Exam: ATRAUMATIC, NORMAL INSPECTION, NORMOCEPHALIC - Eye Exam Eye Exam: EOMI, Normal appearance, PERRL - ENT Exam ENT Exam: Mucous Membranes Moist - Respiratory Exam Respiratory Exam: Clear to PA & Lateral, NORMAL BREATHING PATTERN, UNREMARKABLE. absent: Rales, Rhonchi, Wheezes - Cardiovascular Exam Cardiovascular Exam: +S1, +S2. absent: Gallop, Rubs, Systolic Murmur Additional comments: Irregularly irregular rhythm - GI/Abdominal Exam GI & Abdominal Exam: Normal Bowel Sounds, Soft, Unremarkable. absent: Distended, Guarding, Tenderness - Extremities Exam Extremities exam: full ROM, normal capillary refill, normal inspection, pedal pulses present - Neurological Exam Neurological exam: Alert, CN II-XII Intact, Oriented x3, Reflexes Normal Additional comments: Unsteady gait, improved with walker use - Skin Skin Exam: Dry, Intact, Normal Color, Warm Discharge Plan - Discharge Medications Prescriptions: RX: Aspirin [Aspirin Chewable] 81 mg PO DAILY #30 chew RX: Atorvastatin [Lipitor] 10 mg PO DIN #30 tab RX: Furosemide 40 mg PO DAILY #30 tablet RX: levETIRAcetam [Keppra] 500 mg PO BID #60 tab RX: Losartan Potassium [Cozaar] 100 mg PO DAILY #30 tablet RX: Magnesium Oxide [Magnesium] 1 tab PO DAILY #60 capsule Warfarin [Coumadin] 6 mg PO 1800 #5 tab - Follow Up Plan Condition: STABLE Disposition: HOME/ ROUTINE Instructions: Seizures, Adult (DC), Altered Mental Status (DC), Syncope (Fainting) (DC), Going Home on Blood Thinners Additional Instructions: Please follow-up with your continuous miner Dr Ramirez within 7 days so he may monitor your course. Please make him aware that you have a thrombus in your heart and that you need to maintain an INR of 3 - 3.5. Please follow-up with your Primary Medical Doctor, Dr Diana, within 3-5 days. YOU WILL NEED INR CHECK WITHIN 3 DAYS. You will be discharged with the following medications/scripts. Please take them as instructed: 1. Aspirin 81mg 1 tablet once a day (CARDIAC RISK REDUCTION) 2. Atorvastatin (lipitor) 10mg 1 tablet at bedtime (CHOLESTEROL) 3. Furosemide 40mg 1 tablet once a day (BLOOD PRESSURE) 4. Levetiracetam (keppra) 500mg 1 tablet at 10AM and 1 tablet at 8PM (SEIZURE MEDICATION) 5. Losartan (cozaar) 100mg 1 tablet once a day (BLOOD PRESSURE) 6. Warfarin (coumadin) 6mg 1 tablet at 6PM (this is a very important medication which helps control the BLOOD CLOTS in your heart)- IF YOU DO NOT TAKE THIS YOU CAN HAVE A STROKE CONTINUE ALL OTHER HOME MEDICATION PRESCRIBED. YOUR PRIMARY MEDICAL DOCTOR WILL REFILL YOUR COUMADIN AND ADJUST NEEDED You will also be given a script for a walker, please use this walker for the indefinite future until you rebuild your strength to 100%. You will have physical therapy come to your home. Please continue with these services at their recommendation. If symptoms return please go to your nearest emergency department. Referrals: Pb Diana [Primary Care Provider] - Tino Ramirez MD [Staff Provider] - <Lisa Zavala - Last Filed: 05/22/18 17:38> Provider - Provider Date of Admission: 05/17/18 16:22 Attending physician: Lisa Zavala DO Primary care physician: Pb Diana MD Consults: 05/16/18 23:39 Social Work Referral Routine Comment: met criteria Physician Instructions: Reason For Exam: met criteria 05/16/18 23:42 Physician Consult Routine Comment: Consulting Provider: Obinna Johns Consulting Physician: Obinna Johns Reason for Consult: syncope 05/16/18 23:43 Inpatient CARBONIZER Core Measures Referral Routine Comment: Physician Instructions: Reason For Exam: met criteria Transition In Care/Readmission Reduction Routine Comment: Physician Instructions: Reason For Exam: met criteria 05/16/18 23:50 Diabetic Education Referral Routine Comment: Physician Instructions: Reason For Exam: met criteria 05/16/18 23:56 Diabetic Education Referral Routine Comment: Physician Instructions: Reason For Exam: met crtieria 05/17/18 08:29 Consult [Physician Consult] Routine Comment: Consulting Provider: Rosalio Preston Consulting Physician: Rosalio Preston Reason for Consult: afib, syncope 05/17/18 16:20 Infectious Disease Consult Routine Comment: Consulting Provider: Alcides Lafleur Consulting Physician: Alcides Lafleur Reason for Consult: Febrile w/ possible heart valve vegetation 05/18/18 11:50 TCU [Evaluation for TRCU] Routine Comment: Physician Instructions: Reason For Exam: strengthening Hospital Course - Lab Results Lab Results: Micro Results 05/17/18 15:30 Blood-Venous Blood Culture - Final NO GROWTH AFTER 5 DAYS 05/17/18 15:30 Blood-Venous Gram Stain - Final TEST NOT PERFORMED 05/17/18 15:00 Blood-Venous Blood Culture - Final NO GROWTH AFTER 5 DAYS 05/17/18 15:00 Blood-Venous Gram Stain - Final TEST NOT PERFORMED 05/18/18 08:30 Blood-Venous Blood Culture - Preliminary NO GROWTH AFTER 4 DAYS 05/18/18 07:30 Blood-Venous Blood Culture - Preliminary NO GROWTH AFTER 4 DAYS 05/17/18 16:50 Urine,Catheterized Urine Culture - Final No Growth (<1,000 CFU/ML) Most Recent Lab Values WBC 4.3 10^3/uL (4.5-11.0) L 05/21/18 07:45 RBC 3.59 10^6/uL (3.5-6.1) 05/21/18 07:45 Hgb 10.4 g/dL (14.0-18.0) L 05/21/18 07:45 Hct 33.8 % (42.0-52.0) L 05/21/18 07:45 MCV 94.2 fl (80.0-105.0) 05/21/18 07:45 MCH 29.0 pg (25.0-35.0) 05/21/18 07:45 MCHC 30.8 g/dl (31.0-37.0) L 05/21/18 07:45 RDW 13.9 % (11.5-14.5) 05/21/18 07:45 Plt Count 196 10^3/uL (120.0-450.0) 05/21/18 07:45 MPV 11.2 fl (7.0-11.0) H 05/21/18 07:45 Gran % 64.6 % (50.0-68.0) 05/21/18 07:45 Lymph % (Auto) 21.1 % (22.0-35.0) L 05/21/18 07:45 [place] % (Auto) 10.1 % (1.0-6.0) H 05/21/18 07:45 Eos % (Auto) 4.0 % (1.5-5.0) 05/21/18 07:45 Baso % (Auto) 0.2 % (0.0-3.0) 05/21/18 07:45 Gran # 2.76 (1.4-6.5) 05/21/18 07:45 Lymph # (Auto) 0.9 (1.2-3.4) L 05/21/18 07:45 [place] # (Auto) 0.4 (0.1-0.6) 05/21/18 07:45 Eos # (Auto) 0.2 (0.0-0.7) 05/21/18 07:45 Baso # (Auto) 0.01 K/mm3 (0.0-2.0) 05/21/18 07:45 PT 37.3 SECONDS (9.4-12.5) H 05/21/18 07:45 INR 3.17 05/21/18 07:45 APTT 74.7 Seconds (25.1-36.5) H 05/21/18 07:45 Sodium 139 mmol/L (132-148) 05/21/18 07:45 Potassium 3.5 mmol/L (3.6-5.0) L 05/21/18 07:45 Chloride 102 mmol/L (98-107) 05/21/18 07:45 Carbon Dioxide 34 mmol/L (21-33) H 05/21/18 07:45 Anion Gap 7 (10-20) L 05/21/18 07:45 BUN 15 mg/dL (7-21) 05/21/18 07:45 Creatinine 1.0 mg/dl (0.8-1.5) 05/21/18 07:45 Est GFR ( Amer) > 60 05/21/18 07:45 Est GFR (Non-Af Amer) > 60 05/21/18 07:45 POC Glucose (mg/dL) 293 mg/dL (65-110) H 05/21/18 12:13 Random Glucose 215 mg/dL (70-110) H 05/21/18 07:45 Hemoglobin A1c 8.8 % (4.2-6.5) H 05/16/18 19:30 Calcium 8.5 mg/dL (8.4-10.5) 05/21/18 07:45 Magnesium 1.6 mg/dL (1.7-2.2) L 05/18/18 06:00 Total Bilirubin 0.6 mg/dL (0.2-1.3) 05/21/18 07:45 AST 31 U/L (17-59) 05/21/18 07:45 ALT 24 U/L (7-56) 05/21/18 07:45 Alkaline Phosphatase 96 U/L (38-126) 05/21/18 07:45 Lactate Dehydrogenase 1152 U/L (333-699) H 05/16/18 19:30 Total Creatine Kinase 46 U/L (35-230) 05/16/18 19:30 Troponin I 0.01 ng/mL 05/16/18 19:30 Total Protein 5.7 g/dL (5.8-8.3) L 05/21/18 07:45 Albumin 3.1 g/dL (3.0-4.8) 05/21/18 07:45 Globulin 2.6 gm/dL 05/21/18 07:45 Albumin/Globulin Ratio 1.2 (1.1-1.8) 05/21/18 07:45 Triglycerides 61 mg/dL (35-160) 05/17/18 06:30 Cholesterol 118 mg/dL (130-200) L 05/17/18 06:30 LDL Cholesterol Direct 65 mg/dL (0-129) 05/17/18 06:30 HDL Cholesterol 45 mg/dL (29-60) 05/17/18 06:30 Procalcitonin 0.09 NG/ML (0.19-0.49) L 05/17/18 15:30 TSH 3rd Generation 1.12 mIU/mL (0.46-4.68) 05/17/18 06:00 Urine Color Yellow (YELLOW) 05/17/18 02:15 Urine Appearance Clear (CLEAR) 05/17/18 02:15 Urine pH 6.5 (4.7-8.0) 05/17/18 02:15 Ur Specific [place] 1.015 (1.005-1.035) 05/17/18 02:15 Urine Protein 30 mg/dL (<30 mg/dL) H 05/17/18 02:15 Urine Glucose (UA) 100 mg/dL (NEGATIVE) H 05/17/18 02:15 Urine Ketones Negative mg/dL (NEGATIVE) 05/17/18 02:15 Urine Blood Small (NEGATIVE) H 05/17/18 02:15 Urine Nitrate Negative (NEGATIVE) 05/17/18 02:15 Urine Bilirubin Negative (NEGATIVE) 05/17/18 02:15 Urine Urobilinogen 0.2 E.U./dL (<1 E.U./dL) 05/17/18 02:15 Ur Leukocyte Esterase Negative Tara/uL (NEGATIVE) 05/17/18 02:15 Urine RBC 1 - 3 /hpf (0-2) H 05/17/18 02:15 Urine WBC 0 - 2 /hpf (0-6) 05/17/18 02:15 Ur Epithelial Cells 0 - 2 /hpf (0-5) 05/17/18 02:15 Urine Bacteria None /hpf (NONE) 05/17/18 02:15 Attending/Attestation - Attestation I have personally seen and examined this patient.: Yes I have fully participated in the care of the patient.: Yes I have reviewed all pertinent clinical information, including history, physical exam and plan: Yes Notes (Text): Please note this DC summary is for 05/21/18 Patient seen and examined by me with resident 10:30AM and prior to discharge on 05/21/18. Case including discharge plan discussed with resident. Agree with above with following additions/corrections. Patient is a 67-year-old male past medical history significant for hypertension, CAD s/p CABG, DM2, atrial fibrillation on Coumadin, and mechanical mitral valve replacement that presented to the emergency room with syncope. Please see H&P for full details. Patient was admitted with syncope, HTN, DM2, and anxiety. Neurology was consulted. Cardiology was consulted. Head CT per radiologist shows normal head CT. Brain MRI per radiologist showed redemonstration of an old right parietal infarct with cystic encephalomalacia, evidence of chronic periventricular white matter ischemia disease, probable tiny old infarct in the right cerebellum posteriorly, atrophic changes. Head/Neck CTA per radiologist showed no evidence of endoluminal thrombus, occlusion or definite significant stenosis in the intracranial arteries; extensive atherosclerotic vascular calcifications; no evidence of hemodynamically significant stenosis in the internal carotid arteries; patent bilateral vertebral arteries. 2D echo per continuous miner showed left atrium moderately dilated, right atrium dilated, EF 60-65%, systolic function mild to moderately reduced, mechanical mitral valve, echogenic mobile structure noted in LA. TASHA per continuous miner showed left ventricular function is normal with EF of 60-65%, mitral regurg is [id number], multiple echogenic structure attached leaflets of mechanical mitral valves less mobile towards ventricular surface largest being 1.3/2.9 cm with multiple jets of mild to moderate mitral regurg consistent with possible thrombus. Patient was noncompliant with medications and INR was 1.3 on admission. WBC on admission was 7.1 and 4.3 on discharge. Patient with anemia which is chronic, there were no signs of acute bleeding. Patient was placed on heparin drip and started on coumadin. Patient had a fever of 100.7 on 05/17/18. There was a concern for possible vegatation on cardiac valve. ID was consulted. Blood cultures showed no growth. Procalcitonin was 0.09. Patient was treated with cefepime and vancomycin. Patient also with atrial fibrillation and was continued on coumadin. INR goal per cardiology is 3 to 3.5. Patient was continued on ASA, lipitor, and Cozaar for historu of CAD. Patient was continued on Keppra for history of seizures. Patient was continued on Lasix and Cozaar for history of HTN. Patient was continued on insulin sliding scale for history of DM2. HgbA1C was 8.8. Patient was continued on Zoloft for depression. Patient had stopped taking his medications at home. Patient was counseled at length on medication compliance and importance of physician follow up. Patient on insulin sliding scale at home for DM. Patient stated he had insulin at home and did not need any. Patient was feeling much better and was asking to go home. Patient was seen by physical therapist who initially recommended TCU. However, patient wanted to go home. Patient was re-evaluated by PT who recommended home with services and rolling walker. Patient was discharged home. On day of discharge, patient stated he was feeling better. Patient denied any chest pain or palpitations. No shortness of breath. No nausea or vomiting. No headache or dizziness. No change in vision or light headedness. No fevers or chills. No dysuria. No diarrhea or constipation. Physical exam: General: Awake and alert lying in bed in no acute distress HEENT: Normocephalic, atraumatic. Extraocular muscles intact, pupils equal and reactive, no scleral icterus. Oropharynx is pink and moist. No pharyngeal erythema or exudate appreciated.Neck is supple. Cardiovascular: Irregularly irregular rhythm. Positive click. No rubs or gallops appreciated. Pulmonary: Normal respiratory effort. No rhonchi, rales, or wheezing apprec iated. Gastrointestinal: Soft, nondistended. Nontender. Positive bowel sounds all 4 quadrants. No guarding. Musculoskeletal: Moves all extremities. No calf tenderness. No edema appreciated. Central nervous system: AAO x3, CN 2-12 grossly intact Dermatologic: Skin warm and dry. Please see chart for full details. Follow up instructions: Patient to follow-up with primary care doctor within 3-5 days. Patient to follow up with continuous miner within 7 days of discharge. Patient will need INR rechecked within 3 days. Patient to take medications as prescribed. Patient to continue other home medications. Patient stated he had his insulin at home and did not need any. All instructions explained to the patient in detail. Patient both understands and agrees to all instructions. Written instructions also given. Time spent in discharging the patient including chart review, medication reconciliation, discussion with the patient, medical radiation dosimetrist, consultants, and nursing staff was approximately 45 minutes.
[2018-05-21] MEDS ORDERED: Liquid Adhesive TOP ONE (14:40)
--- NOTE | 2018-05-21 17:54 | PN ---
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 This note is in addition to the dictated by nurse practitioner, Tessy Hung. The patient's today INR 3.17 and PTT is 74.7. RECOMMENDATIONS: We will discontinue heparin, continue Coumadin. Goal is to keep INR between 3 and 3.5. Coumadin increased to 6 mg daily. Continue rest of the medications. Continue atorvastatin. Continue Lasix. Continue baby aspirin 81 mg daily. The patient had TASHA done day before yesterday that revealed trivial atrial regurgitation, mitral regurgitation mild to moderate, multiple echogenic structures attached to the leaflet of the mechanical mitral valve, both leaflets are less mobile towards ventricular surface, largest being the mass 1.3 x 2.9 cm with multiple jets of mild to moderate mitral regurgitation consistent with possible thrombus. So far the blood culture that was done to rule out endocarditis is negative for three days. So, recommendation is to discontinue antibiotic, continue Coumadin, discontinue heparin, discontinue telemetry. Thank you Dr. Zavala for providing us the opportunity in taking care of the patient, Rick Gudino. We will follow with you. Upon discharge, the patient will be followed up with Dr. Ramirez compliance with the medication and follow up with Dr. Ramirez and keep the INR between 3 and 3.5. Rosalio Rivera MD
--- NOTE | 2018-05-21 23:39 | CP.PCM.PN ---
Subjective - Date & Time of Evaluation Date of Evaluation: 06/21/18 Time of Evaluation: 09:45 - Subjective Subjective: Patient seen and evaluated at bedside in no acute distress. Patient was dressed ready for discharge. Had no acute complaints overnight. Physical exam - Constitutional Appears: Non-toxic, No Acute Distress - Head Exam Head Exam: ATRAUMATIC, NORMAL INSPECTION, NORMOCEPHALIC - ENT Exam Additional comments: poor dentation - Neck Exam Neck Exam: Full ROM - Respiratory Exam Respiratory Exam: Clear to Ausculation Bilateral, NORMAL BREATHING PATTERN - Cardiovascular Exam Cardiovascular Exam: Irregular Rhythm, +S1, +S2 - GI/Abdominal Exam GI & Abdominal Exam: Soft, Normal Bowel Sounds - Neurological Exam Neurological Exam: Alert, Awake, Oriented x3 Neuro motor strength exam: Left Upper Extremity: 3, Right Upper Extremity: 4, Left Lower Extremity: 3, Right Lower Extremity: 4 - Psychiatric Exam Psychiatric exam: Normal Affect, Normal Mood - Skin Skin Exam: Normal Color Additional comments: stasis dermatitis in lower legs bilaterally Objective - Vital Signs/Intake and Output Vital Signs (last 24 hours): Temp Pulse Resp BP Pulse Ox 97.8 F 105 H 95 H 157/78 H 99 05/21/18 06:00 05/21/18 10:00 05/21/18 06:00 05/21/18 10:16 05/21/18 00:01 Intake and Output: 05/21/18 05/22/18 18:59 06:59 Intake Total 33 Balance 33 - Labs Labs: 05/21/18 07:45 05/21/18 07:45 PT 37.3 SECONDS (9.4-12.5) H 05/21/18 07:45 INR 3.17 05/21/18 07:45 APTT 74.7 Seconds (25.1-36.5) H 05/21/18 07:45 Assessment and Plan - Assessment and Plan (Free Text) Assessment: -MRI Brain reveals no acute changes. Makes mention of previous stroke. 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
== END 2018-05-21 13:32 | disposition home or self-care (01) | DRG 316 ==
LOC: ED 18:53 → ERH 21:27 → 2RSO 22:47 → OBSVTOIN 05-17 16:22
PROVIDERS: ADMIT Hospitalist; ATTEND Hospitalist
PROC: B24BZZ4 Ultrasonography of Heart with Aorta, Transesophageal (ICD-10-PCS; principal; 2018-05-18 09:00)
DX: T82.867A Thrombosis due to cardiac prosthetic devices, implants and grafts, initial encounter (principal); I51.3 Intracardiac thrombosis, not elsewhere classified; I25.10 Atherosclerotic heart disease of native coronary artery without angina pectoris; I48.91 Unspecified atrial fibrillation; Z79.01 Long term (current) use of anticoagulants; J44.9 Chronic obstructive pulmonary disease, unspecified; G40.909 Epilepsy, unspecified, not intractable, without status epilepticus; G93.89 Other specified disorders of brain; E87.6 Hypokalemia; E83.42 Hypomagnesemia; E11.9 Type 2 diabetes mellitus without complications; I10 Essential (primary) hypertension; F32.9 Major depressive disorder, single episode, unspecified; F41.9 Anxiety disorder, unspecified; E78.5 Hyperlipidemia, unspecified; D64.9 Anemia, unspecified; R79.1 Abnormal coagulation profile; F17.210 Nicotine dependence, cigarettes, uncomplicated; Y84.8 Other medical procedures as the cause of abnormal reaction of the patient, or of later complication, without mention of misadventure at the time of the procedure; Z86.73 Personal history of transient ischemic attack (TIA), and cerebral infarction without residual deficits; Z91.14 Patient's other noncompliance with medication regimen; Z91.19 Patient's noncompliance with other medical treatment and regimen; Z95.3 Presence of xenogenic heart valve; Z95.1 Presence of aortocoronary bypass graft